=== PATIENT | male | born 1935 | race Caucasian/White ===

== ENCOUNTER 2018-09-12 15:49 | Inpatient (IN) ==
[2018-09-12] MEDS: D5 1/2 NS + KCL 10 MEQ 1,000 ML IV SCH (17:28)
[2018-09-12] MEDS: FLAGYL 500 MG/NS 500 MG/100 ML IVPB IV SCH (17:28)
[2018-09-12] MEDS: VANCOCIN PO SCH ×2 (17:28→22:15)
--- NOTE | 2018-09-12 17:54 | Diag Imaging Result Doc PS360 ---
EXAM: CHEST-2 VIEWS HISTORY: Dehydration TECHNIQUE: Chest two views COMPARISON: 08/10/2018 FINDINGS: The lungs are well expanded. The heart is not enlarged. The vessels are small. There are no infiltrates. No pleural effusions. Prominent atherosclerosis IMPRESSION: No acute abnormality. Electronically signed by Jeramy Carmona 09/12/2018 5:52 PM
[2018-09-12 18:37] LABS: BASO# 0.05 X1000 (0.0-0.2); BASO% 0.6 % (0.0-0.8); EOS# 0.15 X1000 (0.0-0.7); EOS% 1.9 % (0.0-10.0); HEMOGLOBIN 10.4 g/dL (14.0-18.0); IMM GRAN# 0.03 X1000 (0.0-0.04); IMM GRAN% 0.4 % (0.0-0.5); LYMPH% 21.1 % (20.5-51.1); MCH 33.5 PG (27-31); MCHC 33.5 g/dL (33-37); MONO# 0.68 X1000 (0.11-0.59); MONO% 8.4 % (1.7-9.3); MPV 9.3 FL (7.4-10.4); NEUT# 5.45 X1000 (1.4-6.5); NEUT% 67.6 % (42.2-75.2); PLT 118 X1000 (130-400); RDW 15.2 % (11.5-14.5); WBC 8.06 X1000 (4.8-10.8)
[2018-09-12 18:53] LABS: ALB/GLOB RATIO 0.9; ALBUMIN 3.3 g/dL (3.5-5.0); CALCIUM 8.9 mg/dL (8.8-10.2); POTASSIUM 3.5 mmol/L (3.5-5.1); TOTAL BILIRUBIN 0.45 mg/dL (0.20-1.00)
[2018-09-12 19:17] LABS: CREATININE 9.9 mg/dL (0.7-1.2)
[2018-09-13] MEDS: FLAGYL 500 MG/NS 500 MG/100 ML IVPB IV SCH ×3 (01:25→17:35)
[2018-09-13] MEDS: D5 1/2 NS + KCL 10 MEQ 1,000 ML IV SCH ×2 (05:51→18:54)
[2018-09-13] MEDS: VANCOCIN PO SCH ×4 (05:53→22:54)
--- NOTE | 2018-09-13 07:04 | EKG Report ---
Test Performed on : 09/12/2018 5:29:41 PM Test Reason : dehydration Blood Pressure : / mmHG Vent. Rate : 092 BPM Atrial Rate : 092 BPM P-R Int : 142 ms QRS Dur : 080 ms QT Int : 384 ms P-R-T Axes : 004 -20 044 degrees QTc Int : 474 ms Sinus rhythm. with premature atrial complexes. with aberrant conduction. Nonspecific ST and T wave abnormality Abnormal ECG When compared with ECG of 05-OCT-2017 12:14, aberrant conduction. is now present Confirmed by Rajesh HERRERA, Addy Morris ([id number]) on 09/13/2018 9:06:38 AM
[2018-09-13] MEDS ORDERED: MIRALAX PO PRN (08:40)
[2018-09-13] MEDS ORDERED: PROTEIN SUPPLEMENT PO SCH (09:00)
[2018-09-13] MEDS ORDERED: PATIENT'S OWN MED PO SCH (09:00)
--- NOTE | 2018-09-13 09:14 | PROGRESS NOTE ---
DATE: 09/13/2018 SUBJECTIVE: Mr. Fung is doing fairly well. This morning he is feeling better. Diarrhea is under better control. We have done the stool for C. Difficile and we are going to continue all his medications. -3 cc: Randall Appiah MD
--- NOTE | 2018-09-13 09:26 | HISTORY AND PHYSICAL ---
HISTORY OF PRESENT ILLNESS: Mr. Fung, who is an 82-year-old, white gentleman with a known case of cirrhosis of the liver as well as end-stage renal failure, was initially seen last week in Dr. Bronson's office as he sees Dr. Bronson every month as he is on peritoneal dialysis at home. He has been having diarrhea off and on. C. difficile was checked by Dr. Bronson and turned out to be positive. He was prescribed metronidazole by mouth which he could not tolerate. He had severe nausea and persistent diarrhea. Hence, he came to the office. He was found to have some dehydration and so was admitted to the hospital for further management. Mr. Fung has been diagnosed to have cirrhosis by liver biopsy. He had a peritoneal shunt put in. He also had brain surgery for aneurysm. REVIEW OF SYSTEMS: Otherwise negative. SOCIAL HISTORY: He is a nonsmoker. Does not drink. ALLERGIES: He is allergic to zolpidem. PHYSICAL EXAMINATION: GENERAL: The patient is alert. VITAL SIGNS: Reveal temperature normal, pulse 71 per minute, respiratory rate 18 per minute, blood pressure was 102/57. HEENT: Head normocephalic. Pupils PERRLA. Fundus examination normal. Neck supple. JVP normal. ENT examination unremarkable. There is no evidence of lymphadenopathy, thyroid enlargement, pedal edema, calf tenderness, cyanosis, or clubbing. He is anemic with pallor of skin and mucous membranes. There is also some dehydration. BREAST EXAMINATION: Normal. CHEST: Normal inspection. Lungs are clear on auscultation. PMI in the normal position. HEART: Heart sounds normal. No murmur, gallop, or rub noted. ABDOMEN: Nondistended. Diffusely tender. Peritoneal shunt is noted. No guarding, rigidity, free fluid, masses, or organomegaly. Bowel sounds normal. RECTAL: Examination deferred. MANAGER CHILD: Higher functions normal. Cranial nerves normal. Motor and sensory system examination unremarkable. Deep tendon reflexes normal. Plantars downgoing. Skull and spine examination normal for age. No cerebellar signs or signs of meningeal irritation. Locomotor exam and skin exam unremarkable. MEDICATIONS: His medication that he takes at home are Plavix 75 mg daily, Sensipar 30 mg daily, Rocaltrol, finasteride, potassium chloride, pantoprazole, and lipoproteins. cc: Randall Appiah MD
[2018-09-13] MEDS: PROSCAR PO SCH (11:36)
[2018-09-13] MEDS: IMDUR PO SCH (11:37)
[2018-09-13] MEDS: SENSIPAR PO SCH (11:38)
[2018-09-13] MEDS: PROTONIX PO SCH (11:38)
[2018-09-13] MEDS: PATIENT'S OWN MED PO SCH ×3 (11:39→21:43)
[2018-09-13] MEDS: KLOR-CON PO SCH (11:39)
[2018-09-13] MEDS: PLAVIX PO SCH (11:39)
[2018-09-13] MEDS: ROCALTROL PO SCH ×2 (11:40→11:41)
[2018-09-13] MEDS ORDERED: ULTRAM PO PRN (13:00)
[2018-09-13] MEDS ORDERED: AMBIEN PO SCH (21:00)
[2018-09-13] MEDS ORDERED: LUNESTA PO SCH ×2 (21:00)
--- NOTE | 2018-09-13 21:23 | NEPHROLOGY CONSULTATION ---
DATE: 09/13/2018 DATE AND TIME: Date of consult is 09/13/2018. REASON FOR ADMISSION: Severe weakness, abdominal cramping and chronic diarrhea. REASON FOR CONSULT: End-stage renal disease with assistance with medical management. HISTORY OF PRESENT ILLNESS: Mr. Fung is an 82-year-old white male who is known to our outpatient services for home peritoneal dialysis. The patient has been very weak after hospitalization recently. Continues to have chronic diarrhea. C. difficile was checked, which turned out to be positive. We had started him on Flagyl by mouth. The patient states that he could not tolerate it and the diarrhea continued. He came to Dr. Appiah's office and was found to be severely dehydrated. Subsequently was diagnosed with cirrhosis by liver biopsy in the past. Due to these facts, he was sent to the hospital for further monitoring and evaluation. PAST MEDICAL HISTORY: Positive for end-stage renal disease with peritoneal dialysis on a daily basis, chronic diarrhea. He has a history of a peritoneal shunt, brain surgery for an aneurysm, anemia of chronic disease, dehydration, recent parathyroidectomy, history of a TIA, leukocytosis, osteodystrophy of chronic disease. The patient also has known hypertension, cardiac cirrhosis. SOCIAL HISTORY: He is . He lives with his spouse. Denies tobacco, alcohol or illicit drug use. FAMILY HISTORY: Noncontributory. ALLERGIES: Listed as zolpidem. HOME MEDICATIONS: Have yet to be reviewed. REVIEW OF SYSTEMS: The patient denies any nausea, no emesis, poor appetite, chronic diarrhea. No fever or chills. Positive for weakness. No increased lower extremity swelling. No chest pain. No increased work of breathing. Review of systems x 10. VITAL SIGNS: Most recent vital signs: Temperature 98.9, blood pressure 97/44, heart rate of 73, respirations 18. He is on room air. Last recorded saturation 96%. He has had 120 mL in. He has had 0 recorded out. LABORATORY: Patient's most recent labs: Sodium is 139, potassium 3.5, chloride 95, CO2 26, BUN 38, creatinine 9.9, his glucose is 155, anion gap of 18, calcium 8.9, albumin 3.3. The patient has a white count of 8.06, hemoglobin 10.4, hematocrit 31, platelet count is 118,000. The patient had a chest x-ray upon admission indicating no acute abnormalities. Stool cultures are still currently pending. PHYSICAL EXAMINATION: General: This is an 82-year-old white male resting quietly in bed. He appears chronically ill, in no acute distress. Skin: Warm and dry. HEENT: Normocephalic, atraumatic. Conjunctiva is pale. He has NICK. Mucous membranes are dry. Neck: Supple. Trachea midline. No evidence of JVD. Cardiovascular: Regular rate and rhythm. He is without murmur or gallop. Lungs: Clear to auscultation bilaterally. Equal excursion on room air. Abdomen: Soft nontender. PD catheter remains intact. He is currently on PD dialysis as we speak. Genitourinary: Minimal void with peritoneal dialysis assist. Extremities: No edema. No clubbing or cyanosis. Neurologic: Alert and oriented x 2. ASSESSMENT AND PLAN: 1. Chronic kidney disease stage 5D. The patient continues on his peritoneal dialysis treatment per his routine exchanges. He has been on all yellow PD fluid x1 week secondary to his volume depletion. 2. Electrolytes and acid-base balance. These are acceptable. 3. Anemia. This is acceptable. 4. Chronic diarrhea with dehydration. The patient is currently receiving IV fluids. He is currently on Vancocin and Flagyl oral. I would like to thank you for allowing us to follow with this patient. Dictated by GORDON Yee for Rasta Bronson MD Face to face encounter, data reviewed, discussed with María Macias on 09/13/18. I agree with the above assessment and plan of care. cc: GORDON Yee MD Amit V. Vora, MD [facility]
[2018-09-13] MEDS: REMERON PO SCH (21:31)
[2018-09-13] MEDS: LIPITOR PO SCH (21:31)
[2018-09-14] MEDS: FLAGYL 500 MG/NS 500 MG/100 ML IVPB IV SCH ×3 (02:44→17:28)
[2018-09-14] MEDS: D5 1/2 NS + KCL 10 MEQ 1,000 ML IV SCH ×3 (05:40→19:30)
[2018-09-14] MEDS: VANCOCIN PO SCH ×3 (05:41→17:28)
[2018-09-14] MEDS: PROTONIX PO SCH (06:10)
--- NOTE | 2018-09-14 09:38 | PROGRESS NOTE ---
DATE: 09/14/2018 Mr. Fung is doing better. His C. difficile came back negative. He is on IV Flagyl as well as oral vancomycin. We will continue the current management on him. He is getting peritoneal dialysis. We will give him IV fluids also. The dehydration is much better. -2 cc: Randall Appiah MD
[2018-09-14] MEDS: SENSIPAR PO SCH (09:44)
[2018-09-14] MEDS: PLAVIX PO SCH (09:44)
[2018-09-14] MEDS: PROSCAR PO SCH (09:44)
[2018-09-14] MEDS: ROCALTROL PO SCH (09:44)
[2018-09-14] MEDS: IMDUR PO SCH (09:44)
[2018-09-14] MEDS: KLOR-CON PO SCH (09:45)
[2018-09-14] MEDS: PATIENT'S OWN MED PO SCH ×2 (09:45)
--- NOTE | 2018-09-14 14:51 | NEPHROLOGY PROGRESS NOTE ---
DATE: 09/14/2018 DATE AND TIME OF EXAM: 09/14/2018 at 0855 hours. SUBJECTIVE: Mr. Fung is standing up in his room. He has been walking about. States he is feeling slightly better today. OBJECTIVE: His most recent vital signs: Temperature 98.3 degrees, blood pressure 95/47, heart rate 76, respirations 16. He is on room air. Last recorded saturation 99%. He has had 1440 in, 1006 out to void, not including his PD ultrafiltration. General: This is an 82-year-old white male. He is resting quietly on the side of the bed during exam. He appears in no acute distress. Skin: Warm and dry. HEENT: Normocephalic, atraumatic. Conjunctiva is pale. He has NICK. Mucous membranes are dry. Neck: Supple. Trachea midline. No JVD. Cardiovascular: Regular rate and rhythm. He is without murmur or gallop. Lungs: Clear to auscultation bilaterally. Equal excursion on room air. Abdomen: Soft, nontender. PD catheter remains dry and intact without redness or drainage. He has just been taken off his peritoneal dialysis cycler for the night. Genitourinary: Not inspected. Minimal void with dialysis assist. Extremities: Have no edema. No clubbing or cyanosis. Neurological: Alert and oriented x3. LABS: His last potassium was 3.5. His previous hemoglobin was 10.4. These will be checked in the a.m. ASSESSMENT AND PLAN: 1. Chronic kidney disease stage 5 D. The patient has peritoneal dialysis fluid remaining in his abdomen. No indications for intervention today with plans for continued dialysis treatment per the peritoneal dialysis cycler tonight. 2. Electrolytes, acid-base balance, and anemia. These have been stable. We will plan to check his labs in the morning. 3. Chronic diarrhea. Patient remains on Vancocin and Flagyl, followed by Dr. Appiah. I would like to thank you for allowing us to follow with this patient. Dictated by GORDON Yee for Rasta Bronson MD cc: GORDON Yee MD Amit V. Vora, MD
[2018-09-14] MEDS: REMERON PO SCH (21:34)
[2018-09-14] MEDS: LIPITOR PO SCH (21:36)
[2018-09-15] MEDS: VANCOCIN PO SCH ×6 (00:30→22:11)
[2018-09-15] MEDS: PATIENT'S OWN MED PO SCH ×5 (00:38→21:45)
[2018-09-15] MEDS: FLAGYL 500 MG/NS 500 MG/100 ML IVPB IV SCH ×3 (01:07→18:05)
[2018-09-15] MEDS: PROTONIX PO SCH (06:20)
[2018-09-15] MEDS: D5 1/2 NS + KCL 10 MEQ 1,000 ML IV SCH ×4 (06:20→20:49)
[2018-09-15] MEDS: ROCALTROL PO SCH (08:31)
[2018-09-15] MEDS: PLAVIX PO SCH (08:31)
[2018-09-15] MEDS: IMDUR PO SCH (08:31)
[2018-09-15] MEDS: SENSIPAR PO SCH (08:31)
[2018-09-15] MEDS: PROSCAR PO SCH (08:31)
[2018-09-15] MEDS: KLOR-CON PO SCH (08:31)
[2018-09-15 08:51] LABS: BASO# 0.03 X1000 (0.0-0.2); BASO% 0.5 % (0.0-0.8); EOS# 0.23 X1000 (0.0-0.7); EOS% 4.2 % (0.0-10.0); HEMATOCRIT 27.6 % (42.0-52.0); HEMOGLOBIN 9.3 g/dL (14.0-18.0); IMM GRAN# 0.03 X1000 (0.0-0.04); IMM GRAN% 0.5 % (0.0-0.5); LYMPH# 1.49 X1000 (1.2-3.4); LYMPH% 27.1 % (20.5-51.1); MCH 33.6 PG (27-31); MCHC 33.7 g/dL (33-37); MCV 99.6 FL (81-99); MONO% 9.1 % (1.7-9.3); MPV 9.1 FL (7.4-10.4); NEUT# 3.22 X1000 (1.4-6.5); NEUT% 58.6 % (42.2-75.2); PLT 101 X1000 (130-400); RBC 2.77 XMIL (4.7-6.1); RDW 15.3 % (11.5-14.5)
[2018-09-15 09:16] LABS: ALBUMIN 2.9 g/dL (3.5-5.0); CALCIUM 8.1 mg/dL (8.8-10.2); PHOSPHORUS 5.4 mg/dL (2.7-4.5); POTASSIUM 3.5 mmol/L (3.5-5.1)
[2018-09-15 09:29] LABS: CREATININE 8.7 mg/dL (0.7-1.2)
--- NOTE | 2018-09-15 11:20 | PROGRESS NOTE ---
DATE: 09/15/2018 Mr. Fung is doing better. Diarrhea is better. Yesterday, he had a rough time during peritoneal dialysis. According to the family, the left foot was swollen. He has some arterial insufficiency in both legs. We will try to get arterial flow study in both legs and venous flow study in the left leg. -0 cc: Randall Appiah MD
--- NOTE | 2018-09-15 15:14 | NEPHROLOGY PROGRESS NOTE ---
DATE: 09/15/2018 SUBJECTIVE: Patient resting in bed. The patient states that last night he had swelling to his feet. It is resolved by this morning. He denies shortness of breath or chest pain. OBJECTIVE: Vital Signs: Temperature 98.3 degrees, pulse 72, respiratory rate 14, blood pressure 104/46. Intake 476 mL. Output 300 mL. It is also noted on the dialysis machine intake right at 3 L and output just under a liter. General: This is an elderly gentleman resting in bed. He is awake and alert. He is in no acute distress. HEENT: Normocephalic, atraumatic. NICK. Neck: Supple without JVD. Cardiovascular: Regular rate and rhythm. Pulmonary: Clear bilaterally. Abdomen: Soft. Positive bowel sounds. No tenderness noted. PD catheter noted clean, dry, and intact. : Not inspected. Extremities: No clubbing, cyanosis. He currently has no pretibial edema. He has some trace pedal edema. Integumentary: Skin is warm and dry. LAB DATA: WBC of 5.5, hemoglobin 9.3. Sodium 134, potassium 3.5, CO2 22, creatinine 8.7, phosphorus 5.4, calcium 8.1, albumin 2.9. ASSESSMENT AND PLAN: Chronic kidney disease 5D. We will continue him on his peritoneal dialysis. The patient has been dialyzing with. CONTINUATION: Original job #[id number]. ASSESSMENT AND PLAN: 1. Patient has been dialyzing with yellow bags (1.5% dextrose). We have been attempting to keep some fluid on him secondary to his dehydration with the diarrhea. It appears that he is achieved a euvolemic state. Will change him over to green bags tonight and evaluate him tomorrow. Family states that they do use a combination of yellow and green bags depending on his fluid status. 2. Clostridium difficile, chronic diarrhea. Continues on Vancocin and Flagyl. Followed by primary. Dictated by GORDON Nascimento for Rasta Bronson MD cc: MD Randall Mccoy MD Dictated by GORDON Nascimento for Rasta Bronson MD cc: MD Randall Mccoy MD [facility]
--- NOTE | 2018-09-15 15:18 | NEPHROLOGY PROGRESS NOTE ---
DATE: 09/15/2018 CONTINUATION: Original job #[id number]. ASSESSMENT AND PLAN: 1. Patient has been dialyzing with yellow bags (1.5% dextrose). We have been attempting to keep some fluid on him secondary to his dehydration with the diarrhea. It appears that he is achieved a euvolemic state. Will change him over to green bags tonight and evaluate him tomorrow. Family states that they do use a combination of yellow and green bags depending on his fluid status. 2. Clostridium difficile, chronic diarrhea. Continues on Vancocin and Flagyl. Followed by primary. Dictated by GORDON Nascimento for Rasta Bronson MD cc: MD Randall Mccoy MD [facility]
[2018-09-15] MEDS: LIPITOR PO SCH (21:45)
[2018-09-15] MEDS: REMERON PO SCH (21:45)
[2018-09-16] MEDS: FLAGYL 500 MG/NS 500 MG/100 ML IVPB IV SCH ×2 (03:03→09:11)
[2018-09-16] MEDS: PROTONIX PO SCH ×2 (05:39→06:00)
[2018-09-16] MEDS: VANCOCIN PO SCH ×2 (05:39→11:23)
[2018-09-16 07:26] VITALS: BP 92/44
[2018-09-16 08:38] LABS: CALCIUM 8.2 mg/dL (8.8-10.2); POTASSIUM 3.4 mmol/L (3.5-5.1)
[2018-09-16 08:43] LABS: CREATININE 9.2 mg/dL (0.7-1.2)
[2018-09-16] MEDS: KLOR-CON PO SCH (09:11)
[2018-09-16] MEDS: IMDUR PO SCH (09:11)
[2018-09-16] MEDS: ROCALTROL PO SCH (09:11)
[2018-09-16] MEDS: PLAVIX PO SCH (09:11)
[2018-09-16] MEDS: SENSIPAR PO SCH (09:11)
[2018-09-16] MEDS: PROSCAR PO SCH (09:11)
[2018-09-16] MEDS: PATIENT'S OWN MED PO SCH ×2 (09:12→11:28)
--- NOTE | 2018-09-16 14:00 | PROGRESS NOTE ---
DATE: 09/16/2018 The patient's potassium is 3.4. However, he is doing the dialysis on a regular basis so he changes frequently. We will continue with the current management. He is going to be discharged today. I do not think he needs any more vancomycin capsules as he has received 4 days worth of treatment and a second stool report was negative for C. Diff. -0 cc: Randall Appiah MD
--- NOTE | 2018-09-17 15:40 | DISCHARGE SUMMARY ---
ADMISSION DATE: 09/12/2018 DISCHARGE DATE: 09/16/2018 HOSPITAL COURSE: Mr. Fung is admitted with diarrhea, dehydration. He had Clostridium difficile positive. Initial Clostridium difficile test was done in Dr. Bronson's office. He was placed on Flagyl by mouth, which he could not tolerate. X-RAY DATA: In the hospital chest x-ray did not reveal any acute abnormality. He had a vascular flow study done, and the final report is not back. EKG revealed sinus rhythm with premature atrial contractions. ST-T abnormality was nonspecific. OTHER LAB DATA: Revealed CBC was unremarkable, except for anemia. Hemoglobin was 9.3. Potassium has been changed slightly from 3.5 to 3.4. BUN was 29, creatinine 9.2. He has chronic renal failure. COURSE IN THE HOSPITAL: He was given IV fluids to help dehydration. He had peritoneal dialysis done every night. Nephrology consult was obtained. Physical exam was improving. Diarrhea had improved significantly. The second stool Clostridium difficile toxin was negative, and so we had decided to send him home today. FINAL DIAGNOSES: 1. Clostridium difficile colitis. 2. Dehydration. 3. Renal failure. 4. Hepatic liver cirrhosis. 5. Peripheral arterial disease. cc: Randall Appiah MD
--- NOTE | 2018-09-19 20:44 | VASCULAR LAB ---
PROCEDURE NAME: Arterial Bilateral Legs - 09/15/2018 REFERRING PHYSICIAN: Bijal. READING PHYSICIAN: Jerrica. STITCH WELDER: Gagan. INDICATION: Left 5th toe ulcer. FINDINGS: Pulse volume waveforms show pulsatile flow at all levels on the right side, and on the left side there is pulsatile flow except at the digital level where it is absent. Segmental pressures: Right brachial 121, high thigh 250, low thigh 250, popliteal 250, dorsalis pedis 250, posterior tibial 250, toe pressure 58, KENDY 1.9, TBI 0.45. Left brachial pressure 128, high thigh 250, low thigh 250, popliteal 250, dorsalis pedis 73, posterior tibial 250, and the toe pressure was not measured. Ultrasound was then used to evaluate the arteries of the left lower extremity. The posterior tibial artery had a peak systolic velocity of 54 or 55 cm/sec. The posterior tibial artery measured 29 cm/sec. The right posterior tibial artery measured 113 cm/sec, and the right dorsalis pedis measured 32 cm/sec. INTERPRETATION: There are probable calcified vessels throughout both lower extremities, limiting the utility of the pressure measurements and KENDY measurement. The waveforms appear to be somewhat better formed on the right side compared to the left. There is probable blunting of the left ankle level and it is absent at the digital level. There is a discrepancy and velocity of the left posterior tibial artery compared to the right. 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 Compared to the prior study on 04/22/2018, this is probably similar, if not somewhat worse. cc: MD Randall Altamirano MD
--- NOTE | 2018-09-19 21:20 | Extremity Venous Study ---
PROCEDURE NAME: Venous U/S Left Leg - 09/15/2018 STUDY: Left lower extremity venous duplex study. REQUEST PHYSICIAN: Randall Appiah MD. READING PHYSICIAN: Luiz Becerril MD. CREDIT RESOLUTION REPRESENTATIVE: Selena Farah RVT. INDICATION: Left leg swelling. FINDINGS: The deep and superficial veins of the left lower extremity were imaged throughout their course. They are compressible, patent, and without thrombus. INTERPRETATION: No DVT or SVT of the left lower extremity. cc: MD Randall Altamirano MD
== END 2018-09-16 12:19 | disposition home or self-care (01) | DRG 371 ==
LOC: DIRADM 15:49 → 3N 16:19
PROVIDERS: ADMIT Internal Medicine; ATTEND Internal Medicine
CPT/HCPCS: 71020; 71046; 80048; 80053; 80069; 85025; 87324; 93005; 93010; 93923; 93971; A9270; J3480; S0030; S0138

== ENCOUNTER 2018-10-19 22:47 | Inpatient (IN) ==
[2018-10-19 23:29] LABS: ALB/GLOB RATIO 1.1; ALBUMIN 3.6 g/dL (3.5-5.0); CALCIUM 8.7 mg/dL (8.8-10.2); POTASSIUM 3.4 mmol/L (3.5-5.1); TOTAL BILIRUBIN 0.55 mg/dL (0.20-1.00)
[2018-10-20 00:28] LABS: BASO# 0.02 X1000 (0.0-0.2); BASO% 0.4 % (0.0-0.8); EOS# 0.19 X1000 (0.0-0.7); EOS% 3.6 % (0.0-10.0); HEMATOCRIT 23.1 % (42.0-52.0); HEMOGLOBIN 7.6 g/dL (14.0-18.0); IMM GRAN# 0.02 X1000 (0.0-0.04); IMM GRAN% 0.4 % (0.0-0.5); LYMPH# 1.39 X1000 (1.2-3.4); LYMPH% 26.4 % (20.5-51.1); MCH 33.6 PG (27-31); MCHC 32.9 g/dL (33-37); MCV 102.2 FL (81-99); MONO# 0.38 X1000 (0.11-0.59); MONO% 7.2 % (1.7-9.3); MPV 8.8 FL (7.4-10.4); NEUT# 3.27 X1000 (1.4-6.5); PLT 90 X1000 (130-400); RBC 2.26 XMIL (4.7-6.1); RDW 14.7 % (11.5-14.5); WBC 5.27 X1000 (4.8-10.8)
[2018-10-20] MEDS ORDERED: TYLENOL PO ONE (00:55)
[2018-10-20] MEDS ORDERED: BENADRYL PO ONE (00:55)
[2018-10-20] MEDS ORDERED: LASIX IV ONE (00:55)
--- NOTE | 2018-10-20 00:58 | PROVIDER DOCUMENTATION ---
This chart was entered by Krysten Allred Scribe, acting as scribe for James Harmon MD. HPI-Chest Pain - General Chief Complaint: Chest Pain Stated Complaint: Chest Pain Time Seen by Provider: 10/19/18 22:49 Source: patient Allergies/Adverse Reactions: Patient Allergies Allergy/AdvReac Type Severity Reaction Status Date / Time zolpidem [From Ambien] AdvReac Unknown Verified 09/03/17 08:01 Home Medications: Home Medication List Medication Instructions Recorded Confirmed Last Taken Type Cinacalcet [Sensipar] 30 mg PO DAILY 05/16/12 10/19/18 10/05/17 History Finasteride [Proscar] 5 mg PO QAM 05/25/12 10/19/18 10/05/17 History Calcitriol 0.25 mcg PO DIRECTED 01/10/14 10/19/18 10/05/17 History Eszopiclone 6 mg PO QHS 04/13/15 10/19/18 09/13/18 20:00 History Polyethylene Glycol 3350 [Miralax] 17 gm PO PRN PRN 12/23/15 10/19/18 05/08/17 History Atorvastatin Calcium 40 mg PO DAILY 08/30/17 10/19/18 10/05/17 History Clopidogrel Bisulfate [Plavix] 75 g PO DAILY 08/30/17 10/19/18 10/05/17 History Isosorbide Mononitrate 60 mg PO DAILY 08/30/17 10/19/18 10/05/17 History Protein Supplement [Liquacel] 1 packet PO DAILY 08/30/17 10/19/18 Unknown History Pantoprazole Sodium [Protonix] 40 mg PO DAILY #0 09/04/17 10/19/18 10/05/17 08:00 Rx Mirtazapine 45 mg PO QHS 10/05/17 10/19/18 10/04/17 History Potassium Chloride 10 meq PO DAILY #30 tablet.er 10/08/17 10/19/18 Unknown Rx Amino AC/Protein Hydr/Whey Pro 1 oz PO DAILY 08/11/18 10/19/18 Unknown History [Liquacel Liquid Protein Packet] Folic Acid/Vit B Complex and C 1 ea PO DAILY 08/11/18 10/19/18 Unknown History [Dialyvite Tablet] Tramadol [Ultram] 50 mg PO Q8HR tab 08/12/18 10/19/18 Unknown Rx Patient's Own Med 1 ea PO DAILY misc 09/16/18 10/19/18 Unknown Rx Patient's Own Med 1 ea PO DAILY misc 09/16/18 10/19/18 Unknown Rx Patient's Own Med 2 ea PO QHS misc 09/16/18 10/19/18 Unknown Rx - History of Present Illness-CP Nature of Presenting Problem: 82yom presents to ED by EMS cc chest paint that felt like an electric shock and SOB that started about 7:30pm and lasted 10 mins. Pt reports he was doing his peritoneal dialysis at home when the episode happened. Pt also reports previous episode and told he has 3 blockages but no stents.Pt also reports some nausea with episode but denies V/D. Pt is non-toxic in appearance. Location: reports: other (left side) Chest Pain Radiation: reports: no radiation Quality of Pain: reports: other (electric shock) Severity in ED: mild Onset/Duration: 1-3 hours ago Timing: improving, gone now Context/Activities at Onset: reports: other (peritneal dialysis at home) Modifying Factors: improves with: nothing Associated Symptoms: reports: nausea. denies: vomiting Nitro Today/Relief: no nitro taken today Aspirin Treatment Today: no aspirin today Similar Symptoms Previously?: Yes Recently Seen Here or By Another Healthcare Provider: Yes Review of Systems - Adult - REVIEW OF SYSTEMS - ADULT Constitutional: reports: see HPI. denies: chills, fever, fatique Eyes: reports: no symptoms reported Ears, Nose, Mouth & Throat: reports: no symptoms reported Cardiovascular: reports: see HPI, chest pain. denies: irregular heart rate, syncope Respiratory: reports: see HPI, shortness of breath. denies: cough, wheezing Gastrointestinal: reports: see HPI, nausea. denies: diarrhea, vomiting Genitourinary: reports: no symptoms reported Musculoskeletal: reports: no symptoms reported Integumentary: reports: no symptoms reported Neurological: reports: no symptoms reported Psychiatric: reports: no symptoms reported Endocrine: reports: no symptoms reported Hematologic/Lymphatic: reports: no symptoms reported Allergic/Immunologic: reports: no symptoms reported All Other Systems: Reviewed and Negative Past History - Adult - PAST MEDICAL HISTORY-ADULT Review of Records: reports: Nursing Assessment Review, Medications Reviewed, Social history reviewed & non-contributory. Major Childhood Illnesses: reports: denies history Cardiovascular: reports: HTN Respiratory: reports: denies history Gastrointestinal: reports: denies history Obstetrical/Gynecological: reports: denies history Genitourinary: reports: dialysis, kidney disease Musculoskeletal: reports: denies history Neurological: reports: CVA Endocrine/Immune: reports: thyroid disorder Other Conditions: reports: denies history - PRIOR SURGERIES/PROCEDURES Surgical/Procedure History: reports: other - PRIOR HOSPITALIZATIONS Prior Hospitalizations: reports: for similar symptoms - IMMUNIZATION STATUS Childhood Immunizations: See Nurse Assessment Flu Vaccine: See Nurse Assessment - FAMILY HISTORY Family History: reviewed, not pertinent - SOCIAL HISTORY Smoking: denies Physical Exam-General - PHYSICAL EXAM-ADULT Initial Vital Signs Reviewed: Yes - CONSTITUTIONAL General Appearance: appears well, alert, no apparent distress. negative: anxious, combative - EYES Eyes: PERRL/EOMI, pink conjunctivae. negative: meningismus, photophobia - HEAD, EARS, NOSE, MOUTH & THROAT HENMT: moist mucous membranes, normal ENT inspection. negative: angioedema, hearing deficit - NECK Neck: non-tender, full range of motion, supple, normal inspection. negative: Brudzinski's sign, carotid bruit, C-spine tenderness - RESPIRATORY Respiratory: chest non-tender, lungs clear, normal breath sounds, no pleuratic chest pain, no respiratory distress, no accessory muscle use. negative: crackles, rales, rhonchi, stridor, wheezing - CARDIOVASCULAR Cardiovascular: normal peripheral pulses, regular rate, rhythm, no edema, no gallop, no JVD, no murmur. negative: bradycardia, tachycardia - GASTROINTESTINAL (ABDOMEN) Abdominal Exam: normal bowel sounds, non tender, soft. negative: rigid, rebound, tenderness - LYMPHATIC Lymphatic: no adenopathy. negative: enlargement, striations - MUSCULOSKELETAL Back Exam: normal inspection, no CVA tenderness, no vertebral tenderness. negative: swelling Extremity: normal range of motion, non-tender, normal gait, normal inspection, no pedal edema, no calf tenderness, normal capillary refill. negative: deformity, erythema - SKIN Integumentary: normal color, normal turgor, warm/dry. negative: diaphoresis, erythema, jaundice - NEUROLOGIC Neurologic: compound filler II-XII nml as tested, grossly normal, no motor/sensory deficits. negative: facial droop, focal weakness - PSYCHIATRIC Psych/Mental Status: normal mood/affect, normal thought content, normal thought process, oriented x 3. negative: disoriented x 3, anxious, disheveled, depressed affect Progress - PLAN OF CARE/RESULTS Progress/Plan/Lab Results: Vital Signs - 8 hr 10/19/18 22:49 10/19/18 22:53 10/19/18 22:55 Temperature 98.4 F Pulse Rate 86 88 Respiratory Rate 18 Blood Pressure 116/59 116/59 O2 Sat by Pulse Oximetry 98 98 97 10/19/18 23:01 10/19/18 23:10 10/19/18 23:20 Temperature Pulse Rate 86 80 78 Respiratory Rate 21 18 21 Blood Pressure O2 Sat by Pulse Oximetry 97 99 97 10/19/18 23:24 10/19/18 23:28 10/19/18 23:31 Temperature Pulse Rate 80 80 83 Respiratory Rate 18 18 20 Blood Pressure 88/51 98/47 O2 Sat by Pulse Oximetry 97 95 96 10/19/18 23:32 10/19/18 23:40 10/19/18 23:50 Temperature Pulse Rate 83 83 81 Respiratory Rate 18 21 17 Blood Pressure 95/49 O2 Sat by Pulse Oximetry 96 96 95 10/20/18 00:01 10/20/18 00:02 10/20/18 00:10 Temperature Pulse Rate 80 81 Respiratory Rate 17 17 20 Blood Pressure 108/57 O2 Sat by Pulse Oximetry 96 97 96 10/20/18 00:20 Temperature Pulse Rate 81 Respiratory Rate 18 Blood Pressure O2 Sat by Pulse Oximetry 96 Laboratory Results - last 24 hr 10/19/18 10/19/18 10/19/18 00:11 23:02 23:02 WBC 5.27 Cancelled RBC 2.26 L Cancelled Hgb 7.6 L Cancelled Hct 23.1 L Cancelled MCV 102.2 H Cancelled MCH 33.6 H Cancelled MCHC 32.9 L Cancelled RDW Std Deviation 14.7 H Cancelled Plt Count 90 L Cancelled MPV 8.8 Cancelled Immature Gran % (Auto) 0.4 Cancelled Neut % (Auto) 62.0 Cancelled Lymph % (Auto) 26.4 Cancelled Lamar % (Auto) 7.2 Cancelled Eos % (Auto) 3.6 Cancelled Baso % (Auto) 0.4 Cancelled Immature Gran # (Auto) 0.02 Cancelled Neut # (Auto) 3.27 Cancelled Lymph # (Auto) 1.39 Cancelled Lamar # (Auto) 0.38 Cancelled Eos # (Auto) 0.19 Cancelled Baso # (Auto) 0.02 Cancelled Corrected WBC (Man) Cancelled Sodium 142 Potassium 3.4 L Chloride 99 Carbon Dioxide 28 Anion Gap 15 BUN 43 H Creatinine 9.0 H Estimated GFR/1.73 m2 6 BUN/Creatinine Ratio 5 Glucose 183 H Calculated Osmolality 299 Calcium 8.7 L Total Bilirubin 0.55 AST 28 ALT 43 Alkaline Phosphatase 122 Troponin T Hqw-[id number]-Rnjiircnbmz Pept Total Protein 7.0 Albumin 3.6 Globulin 3.4 Albumin/Globulin Ratio 1.1 10/19/18 10/19/18 23:02 23:02 WBC RBC Hgb Hct MCV MCH MCHC RDW Std Deviation Plt Count MPV Immature Gran % (Auto) Neut % (Auto) Lymph % (Auto) Lamar % (Auto) Eos % (Auto) Baso % (Auto) Immature Gran # (Auto) Neut # (Auto) Lymph # (Auto) Lamar # (Auto) Eos # (Auto) Baso # (Auto) Corrected WBC (Man) Sodium Potassium Chloride Carbon Dioxide Anion Gap BUN Creatinine Estimated GFR/1.73 m2 BUN/Creatinine Ratio Glucose Calculated Osmolality Calcium Total Bilirubin AST ALT Alkaline Phosphatase Troponin T 0.029 Fne-J-Exxpeszixvk Pept 5326 H Total Protein Albumin Globulin Albumin/Globulin Ratio Orders Category Date Time Status Nursing- Obtain EKG ONCE Care 10/19/18 22:57 Active Transfuse .Give-Transfuse Care 10/20/18 00:55 Ordered cxr [CHEST-1 VIEW] [RAD] Stat Exams 10/19/18 22:57 Taken CBC WITH ELECTRONIC DIFF [HEME] Stat Lab 10/19/18 00:11 Completed COMPREHENSIVE METABOLIC PANEL [CHEM] Stat Lab 10/19/18 23:02 Completed LRPC (RED CELLS) [BBK] Stat Lab 10/20/18 00:56 Uncollected PRO B-NATRIURETIC PEPTIDE Stat Lab 10/19/18 23:02 Completed TROPONIN T Stat Lab 10/19/18 23:02 Completed TYPE & SCREEN [BBK] Stat Lab 10/20/18 00:55 Uncollected Acetaminophen [Tylenol] Med 10/20/18 00:55 Once 650 mg PO PREMED ONE Diphenhydramine [Benadryl] Med 10/20/18 00:55 Once 50 mg PO PREMED ONE Furosemide [Lasix] Med 10/20/18 00:55 Once 80 mg IV NOW ONE EKG [EKG] Stat Ther 10/19/18 22:57 Ordered Result Diagrams: 10/19/18 23:02 10/19/18 23:02 - EKG 1 Time of EKG reading by physician:: 23:00 EKG Read and Signed by:: James Harmon EKG Interpretation (*Must complete 3 of following elements*): Abnormal (prolonged QT) Rate: 88 Rhythm: sinus with PAC's [place]: normal ST Wave: normal - CONSULTS/PCP/HOSPITALIST Notification #1 *Consult/PCP/Hospitalist*: Dr. Fitzpatrick Time Discussed: 00:56 Consult Disposition: Will see in ED (agreed to see pt in ED for possible admit) Departure - Departure Date of Disposition Decision: 10/20/18 Time of Disposition Decision: 00:57 DIAGNOSIS: Chest pain Qualifiers: Chest pain type: other chest pain Qualified Code(s): R07.89 - Other chest pain; R07.8 - Other chest pain Anemia Qualifiers: Anemia type: unspecified type Qualified Code(s): D64.9 - Anemia, unspecified Disposition: ADMITTED INPATIENT 09 Certified Medical Emergency: Emergent Condition: Stable Referrals and Follow-Ups: Randall Appiah MD [Primary Care Provider] - - Critical Care Note This patient required my direct & personal management of CC.: No Attestation - Physician/ FAINA Attestation Patient care was provided by Advanced Practice Provider:: No The physician spent face to face time with patient:: Yes Advanced Practice Provider documentation review:: Supervising physician onsite and consulted in the evaluation and care of this patient. The physician did have a face to face encounter with the patient. This chart was documented by the indicated scribe, (Krysten Allred Scribe) and accurately reflects the services I performed and decisions made by me, James Harmon MD, as attested by the provider's signature.
[2018-10-20 01:30] LABS: RETIC% 2.19 % (0.8-2.1); RETIC-HE 36.1 PG (28.2-36.6)
[2018-10-20 02:11] LABS: TSH 1.55 uIUmL (0.27-4.20)
[2018-10-20 02:22] LABS: INR 1.01; PROTIME 14.1 Seconds (11.0-16.0)
[2018-10-20 02:23] LABS: PTT 33.9 Seconds (22.3-41.8)
[2018-10-20] MEDS ORDERED: NS 500 ML IV SCH (03:15)
[2018-10-20] MEDS ORDERED: NS 500 ML ONE (03:29)
--- NOTE | 2018-10-20 03:29 | HISTORY AND PHYSICAL ---
ADDENDUM The patient came in for chest pain while undergoing peritoneal dialysis, which lasted 50 minutes. No specific or additional anginal equivalent. His blood pressure was noted to be 70/40, per his . The patient did not pass out. He reports no leg swelling, PND, orthopnea, or any CHF related symptoms. No hematochezia or blood loss from any site. He was recently discharged from the hospital over a week ago for C diff colitis and, at that time, denied any melena or hematochezia. He says he has been feeling weak and having some mild dyspnea on exertion for the last week or so. He denies any bone pain. LABORATORY WORK: Notable for a H and H of 7 and 23, which is down from 10 and 32 close to 3 weeks ago. His BUN is 43, creatinine is 9.0, which is pretty much around his baseline. He does report that his dialysate this evening was bloody, according to the patient, but he has never had blood in his peritoneal dialysate. Otherwise, his proBNP is 5300. Chest film shows poor inspiratory effort and poor penetration of radiographic film. His troponin 0.029. His baseline proBNP has always been 5000. PHYSICAL EXAMINATION: VITAL SIGNS: Currently his blood pressure 108/58, heart rate 81, respirations 18, temperature 98.4, O2 saturation of 96% on room air. GENERAL: He is chronically ill, pallid, elderly man. NECK: Has no JVD. No bruit. No thyromegaly. CHEST: Clear. CARDIOVASCULAR: First and second heart sounds are heard. No gallops, murmurs, rubs. ABDOMEN: Shows he has a peritoneal dialysis catheter which is periumbilical. Site is clean. Abdomen exam is essentially benign for any tenderness. Bowel sounds are hypoactive. No mass or organomegaly. RECTAL: Deferred. EXTREMITIES: Patient has significant diminished pulses in all extremities distally, more so in the lower extremity. No clubbing or peripheral cyanosis. NEUROLOGICAL: Normal. ASSESSMENT: 1. This patient does have anemia, probably multifactorial. Could range anything from some degree of bone marrow failure from liver chronic liver and kidney disease, and possible mild hemorrhagic anemia from dialysis, and recent diarrhea. 2. Chest pain, which could be probably from some degree of demand ischemia. 3. Liver cirrhosis. 4. 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 5. Peripheral arterial disease. PLAN: For this patient, we will transfuse 1 unit of packed red blood cells while, at the same time, patient will simultaneously take off at least a pint or 2 to avoid pulmonary edema following transfusion. We will consult Dr. Bronson for further orders regarding patient's peritoneal dialysis. Anemia workup will also be ordered and, hopefully, this should improve patient's symptoms. Serial cardiac enzymes will be followed over the next 6 to 12 hours. cc: Andrade Fitzpatrick MD
--- NOTE | 2018-10-20 05:24 | Diag Imaging Result Doc PS360 ---
EXAM: CHEST-1 VIEW HISTORY: chest pain TECHNIQUE: Chest single view COMPARISON: 09/12/2018 FINDINGS: Poor inspiratory effort. The heart is not enlarged. The vessels are not distended. There are no infiltrates. No effusion identified. IMPRESSION: Negative exam. Electronically signed by Jeramy Carmona 10/20/2018 5:22 AM
[2018-10-20] MEDS ORDERED: TYLENOL PO PRN (06:58)
[2018-10-20] MEDS ORDERED: ZOFRAN IV PRN (06:58)
[2018-10-20] MEDS ORDERED: ZOFRAN ODT PO PRN (07:00)
[2018-10-20 07:03] LABS: BASO# 0.02 X1000 (0.0-0.2); BASO% 0.4 % (0.0-0.8); EOS# 0.18 X1000 (0.0-0.7); EOS% 3.6 % (0.0-10.0); HEMATOCRIT 26.3 % (42.0-52.0); HEMOGLOBIN 8.7 g/dL (14.0-18.0); IMM GRAN# 0.02 X1000 (0.0-0.04); IMM GRAN% 0.4 % (0.0-0.5); LYMPH# 1.34 X1000 (1.2-3.4); LYMPH% 26.5 % (20.5-51.1); MCH 33.1 PG (27-31); MCHC 33.1 g/dL (33-37); MONO# 0.44 X1000 (0.11-0.59); MONO% 8.7 % (1.7-9.3); MPV 9.2 FL (7.4-10.4); NEUT# 3.05 X1000 (1.4-6.5); NEUT% 60.4 % (42.2-75.2); PLT 83 X1000 (130-400); RBC 2.63 XMIL (4.7-6.1); RDW 14.9 % (11.5-14.5); WBC 5.05 X1000 (4.8-10.8)
--- NOTE | 2018-10-20 07:13 | EKG Report ---
Test Performed on : 10/20/2018 07:00:16 AM Test Reason : Chest Pain Blood Pressure : / mmHG Vent. Rate : 066 BPM Atrial Rate : 066 BPM P-R Int : 170 ms QRS Dur : 086 ms QT Int : 456 ms P-R-T Axes : 056 -19 040 degrees QTc Int : 478 ms Normal sinus rhythm. Normal ECG When compared with ECG of 12-SEP-2018 17:29, aberrant conduction. is no longer present Confirmed by Santiago HERRERA, Josue Lewis ([id number]) on 10/20/2018 1:42:04 PM
--- NOTE | 2018-10-20 07:17 | EKG Report ---
Test Performed on : 10/19/2018 10:55:17 PM Test Reason : CHEST PAIN Blood Pressure : / mmHG Vent. Rate : 088 BPM Atrial Rate : 088 BPM P-R Int : 152 ms QRS Dur : 078 ms QT Int : 412 ms P-R-T Axes : 009 -16 039 degrees QTc Int : 498 ms Sinus rhythm. with premature atrial complexes. Prolonged QT Abnormal ECG No previous ECGs available Unconfirmed Result
[2018-10-20 07:26] LABS: ALBUMIN 3.3 g/dL (3.5-5.0); CALCIUM 8.7 mg/dL (8.8-10.2); MAGNESIUM 1.9 mg/dL (1.5-2.7); POTASSIUM 3.7 mmol/L (3.5-5.1)
[2018-10-20 07:27] LABS: PHOSPHORUS 6.8 mg/dL (2.7-4.5)
[2018-10-20 07:28] LABS: CREATININE 9.1 mg/dL (0.7-1.2)
[2018-10-20] MEDS: KLOR-CON PO SCH (08:17)
[2018-10-20] MEDS: SENSIPAR PO SCH (08:17)
[2018-10-20] MEDS: PROSCAR PO SCH (08:17)
[2018-10-20] MEDS: LIPITOR PO SCH (08:17)
[2018-10-20] MEDS: PROTONIX PO SCH (08:18)
[2018-10-20] MEDS: NEPHRO-VITE PO SCH (08:18)
--- NOTE | 2018-10-20 10:16 | PROGRESS NOTE ---
DATE: 10/20/2018 PROGRESS NOTE: Mr. Fung was admitted last night for severe chest pain. The pain was retrosternal. He thought the pain was even more severe other than when he had a heart attack. He has cirrhosis of liver. He has chronic end-stage renal failure. Gets peritoneal dialysis every night. Mr. Fung was very anemic. Hemoglobin was around 7.6. He was transfuse 1 unit. It came back to 8.7. They are going to repeat the CBC in the morning. Repeat EKG and then decide about further management. cc: Randall Appiah MD
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
--- NOTE | 2018-10-20 15:49 | NEPHROLOGY CONSULTATION ---
DATE: 10/20/2018 REASON FOR CONSULTATION: ESRD on PD, evaluate and treat. HISTORY OF PRESENT ILLNESS: Mr. Fung is an 82-year-old, white male, who is well known to us. He has end-stage kidney disease secondary to hypertension. History of secondary hyperparathyroidism, end-stage coronary artery disease, peripheral vascular disease, etc. He has chronic rest pain in his feet and a small ulcer that has been stable. He was in his usual health until last evening when he developed his typical anginal chest pain while he was sitting on the couch idle. Symptoms did not resolve spontaneously so he came to the emergency room. His initial evaluation found blood pressure 116/59, heart rate 86. His initial EKG did not disclose any overtly ischemic findings. His hemoglobin was less than 8. As such, he was admitted to the hospital and transfused with 1 unit of packed red blood cells. Chest pain is resolved at this time. No other new symptoms. No chills, fevers, sweats, night sweats. No abdominal pain. No change in his PD fluid character. PAST MEDICAL HISTORY: As above. HOME MEDICATIONS: Include cinacalcet, finasteride, calcitriol, polyethylene glycol, clopidogrel, isosorbide. Atorvastatin, pantoprazole, mirtazapine, potassium, folate, Liquacel, tramadol. ALLERGIES: Zolpidem. SOCIAL HISTORY: He is and lives with his . She is very attentive to his needs and helps him with his dialysis. FAMILY HISTORY: Otherwise noncontributory. REVIEW OF SYSTEMS: Otherwise noncontributory. PHYSICAL EXAMINATION: Vital Signs: Blood pressure 116/59, heart rate 69, respirations 12, afebrile. Generally: No acute distress. Skin: Warm and dry. HEENT: Conjunctivae are pink. Pupils are equal. Oropharynx is clear. Tongue is moist. Dentition normal. Neck: Supple. Trachea is midline. Neck veins are not distended. Heart: PMI nondisplaced. Regular rate and rhythm without murmurs, rubs, or gallops. Lungs: Have equal excursion, equal breath sounds. No crackles or wheezes. No accessory muscle use or retractions. Abdomen: Soft, distended, nontender. Bowel sounds are present. No organomegaly or masses. Exit site is not examined. Extremities: Have no edema, clubbing, or cyanosis. Foot ulcer is not examined. IMPRESSION: 1. Chest pain. He has inoperable end-stage coronary disease. He has intermittent chest pain. Certainly this was likely to be exacerbated by demand ischemia in the context of significant anemia. Symptoms are better with transfusion. 2. Anemia. Last hemoglobin in our system was 10.8. He has required multiple transfusions for GI bleeding. He has been evaluated. He has received 1 unit of packed red blood cells at this point. 3. Electrolytes/acid base/blood pressure all in target. 4. Chronic kidney disease 5D. We will perform a manual 2 L, 2.5% exchanges this morning because he did not perform his cycle therapy last night. Resume routine cycle therapy this evening. cc: MD Randall Mccoy MD
[2018-10-20] MEDS ORDERED: REMERON PO SCH (21:00)
--- NOTE | 2018-10-21 07:06 | EKG Report ---
Test Performed on : 10/21/2018 06:53:46 AM Test Reason : CP Blood Pressure : / mmHG Vent. Rate : 077 BPM Atrial Rate : 077 BPM P-R Int : 164 ms QRS Dur : 084 ms QT Int : 436 ms P-R-T Axes : 014 000 054 degrees QTc Int : 493 ms Normal sinus rhythm. Prolonged QT Abnormal ECG When compared with ECG of 20-OCT-2018 07:00, No significant change was found Confirmed by Santiago HERRERA, Josue Lewis ([id number]) on 10/24/2018 5:05:08 PM
[2018-10-21 07:25] LABS: HEMOGLOBIN A1C 4.5 % (4.8-6.0)
[2018-10-21 07:30] LABS: BASO# 0.03 X1000 (0.0-0.2); BASO% 0.7 % (0.0-0.8); EOS# 0.19 X1000 (0.0-0.7); EOS% 4.1 % (0.0-10.0); HEMATOCRIT 25.8 % (42.0-52.0); HEMOGLOBIN 8.5 g/dL (14.0-18.0); LYMPH# 1.29 X1000 (1.2-3.4); MCH 33.5 PG (27-31); MCHC 32.9 g/dL (33-37); MCV 101.6 FL (81-99); MONO# 0.35 X1000 (0.11-0.59); MONO% 7.6 % (1.7-9.3); MPV 9.2 FL (7.4-10.4); NEUT# 2.75 X1000 (1.4-6.5); NEUT% 59.6 % (42.2-75.2); PLT 80 X1000 (130-400); RBC 2.54 XMIL (4.7-6.1); RDW 15.2 % (11.5-14.5); WBC 4.61 X1000 (4.8-10.8)
[2018-10-21 07:47] LABS: CALCIUM 8.8 mg/dL (8.8-10.2); POTASSIUM 3.2 mmol/L (3.5-5.1)
[2018-10-21 07:58] LABS: CREATININE 8.6 mg/dL (0.7-1.2)
[2018-10-21] MEDS: NEPHRO-VITE PO SCH (09:03)
[2018-10-21] MEDS: SENSIPAR PO SCH (09:03)
[2018-10-21] MEDS: LIPITOR PO SCH (09:03)
[2018-10-21] MEDS: KLOR-CON PO SCH (09:04)
[2018-10-21] MEDS: PROTONIX PO SCH (09:04)
[2018-10-21] MEDS: PROSCAR PO SCH (09:04)
[2018-10-21] MEDS ORDERED: NS 500 ML ONE (10:48)
[2018-10-21 14:32] VITALS: BP 116/76
--- NOTE | 2018-10-21 16:05 | PROGRESS NOTE ---
DATE: 10/21/2018 SUBJECTIVE: Mr. Fung is doing better. He is receiving blood transfusion now with order by Dr. Bronson. After the blood transfusion, I think we will discharge him today. He is feeling much better. His lungs sound clear. We will discharge. cc: Randall Appiah MD
--- NOTE | 2018-10-21 17:13 | NEPHROLOGY PROGRESS NOTE ---
DATE: 10/21/2018 SUBJECTIVE: He feels well. Slept well last night. No shortness of breath, nausea or vomiting. OBJECTIVE: Vital Signs: Blood pressure 112/49, heart rate 98, respirations 75, afebrile. General: No acute distress. Skin: Warm and dry. Neck: Neck veins are not distended. Heart: Regular. Lungs: Equal. Abdomen: Soft, nontender. Bowel sounds present. Extremities: No edema, clubbing or cyanosis. IMPRESSION: Anemia. I will give a second unit of packed red blood cells today in order to get his hemoglobin closer to 10. He has end-stage ischemic heart disease and ongoing, but episodic gastrointestinal bleeding. Okay for discharge thereafter. Otherwise, we will continue his routine dialysis prescription. He is euvolemic. cc: MD Randall Mccoy MD
--- NOTE | 2018-10-22 06:47 | DISCHARGE SUMMARY ---
ADMISSION DATE: 10/20/2018 DISCHARGE DATE: 10/21/2018 HISTORY: Mr. Fung was admitted with chest pain. He also had severe anemia. His initial hemoglobin when he came in was 7.6 and hematocrit 23.1. After 2 units, it came up to 8.5 and hematocrit 25.8. He is going to be transfused 1 more unit today. His electrolytes were normal except for mild hypokalemia. BUN was 40, creatinine 8.6. Troponin was negative. On chest x-ray, heart was not enlarged, and there are no infiltrates or effusions noted in the lungs. EKG revealed normal sinus rhythm and prolonged QT. Abnormal EKG was found. COURSE IN HOSPITAL: He was kept on telemetry. The cardiac workup was negative. He had severe anemia. He was seen by Dr. Bronson. He had peritoneal dialysis at night. He received 2 units yesterday, and he is going to get 1 unit of packed RBCs today. He will be discharged after that, and I will repeat the blood count in the office in about 3 to 4 days. FINAL DIAGNOSES: 1. Anemia secondary to renal failure. 2. He has liver cirrhosis. 3. Chest pain, etiology undetermined. 4. He has coronary artery disease. It could be related to that. However, the enzymes are negative. DISPOSITION: He will be discharged today. cc: Randall Appiah MD
== END 2018-10-21 15:48 | disposition home or self-care (01) | DRG 682 ==
LOC: SUPCPDRO → ED 22:47 → SUATTDRO 10-20 02:47 → 3N 10-20 02:47
PROVIDERS: ADMIT Internal Medicine; ATTEND Internal Medicine
CPT/HCPCS: 36430; 71010; 71045; 80048; 80053; 80069; 82270; 82550; 82607; 82728; 82746; 83036; 83735; 83880; 84443; 84484; 85025; 85045; 85610; 85730; 86850; 86900; 86901; 86920; 93005; 93010; 94761; 94799; 99285; A9270; J1940; J7040; P9016; S0138

== ENCOUNTER 2018-11-23 10:10 | Inpatient (IN) ==
[2018-11-23] MEDS ORDERED: ULTRAM PO PRN ×2 (11:28→18:00)
[2018-11-23] MEDS ORDERED: MORPHINE IV PRN (11:28)
[2018-11-23] MEDS ORDERED: ZOFRAN IV PRN (11:28)
--- NOTE | 2018-11-23 11:41 | Diag Imaging Result Doc PS360 ---
EXAM: CHEST-2 VIEWS 11/23/2018 HISTORY: Dehydration, hypotension, abd pain TECHNIQUE: PA and lateral chest COMMENT: There is no evidence of acute cardiac or pulmonary disease. The inspiration is better than on the previous study of 10/19/2018. IMPRESSION: No acute disease. Electronically signed by Brooks Nieto 11/23/2018 11:38 AM
[2018-11-23] MEDS ORDERED: POTASSIUM CHLORIDE 10 MEQ in D5 NS 1,000 ML IV SCH (12:00)
--- NOTE | 2018-11-23 12:57 | EKG Report ---
Test Performed on : 11/23/2018 12:28:14 PM Test Reason : dehydration, hypotension, abd pain Blood Pressure : / mmHG Vent. Rate : 084 BPM Atrial Rate : 084 BPM P-R Int : 158 ms QRS Dur : 084 ms QT Int : 394 ms P-R-T Axes : 020 -13 062 degrees QTc Int : 465 ms Sinus rhythm. with premature supraventricular complexes. Otherwise normal ECG When compared with ECG of 21-OCT-2018 06:53, premature supraventricular complexes. are now present Confirmed by Oswald Hodge MD ([id number]) on 11/26/2018 8:47:03 PM
[2018-11-23 13:03] LABS: BASO# 0.04 X1000 (0.0-0.2); BASO% 0.5 % (0.0-0.8); EOS# 0.13 X1000 (0.0-0.7); EOS% 1.7 % (0.0-10.0); HEMATOCRIT 28.9 % (42.0-52.0); HEMOGLOBIN 9.7 g/dL (14.0-18.0); IMM GRAN# 0.04 X1000 (0.0-0.04); IMM GRAN% 0.5 % (0.0-0.5); LYMPH# 1.35 X1000 (1.2-3.4); LYMPH% 18.2 % (20.5-51.1); MCH 33.8 PG (27-31); MCHC 33.6 g/dL (33-37); MCV 100.7 FL (81-99); MONO# 0.57 X1000 (0.11-0.59); MONO% 7.7 % (1.7-9.3); MPV 9.9 FL (7.4-10.4); NEUT% 71.4 % (42.2-75.2); PLT 106 X1000 (130-400); RBC 2.87 XMIL (4.7-6.1); RDW 16.9 % (11.5-14.5); WBC 7.43 X1000 (4.8-10.8)
[2018-11-23 13:40] LABS: ALBUMIN 3.3 g/dL (3.5-5.0); CALCIUM 9.6 mg/dL (8.8-10.2); CREATININE 10.3 mg/dL (0.7-1.2); POTASSIUM 3.6 mmol/L (3.5-5.1); TOTAL BILIRUBIN 0.76 mg/dL (0.20-1.00); TOTAL PROTEIN 6.7 g/dL (6.3-8.3)
[2018-11-23] MEDS: POTASSIUM CHLORIDE 10 MEQ in D5 NS 1,000 ML IV SCH (14:38)
[2018-11-23] MEDS: MIRALAX PO SCH (15:59)
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
[2018-11-23 16:35] LABS: BODY FLUID SOURCE PERI DIAL FLUID; MONOS 85 %; POLYS 15 %; WBC BF 39 /cumm
[2018-11-23] MEDS ORDERED: MIRALAX PO PRN (17:29)
[2018-11-23] MEDS ORDERED: TYLENOL PO PRN (17:29)
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
[2018-11-23] MEDS ORDERED: PATIENT'S OWN MED PO SCH (21:00)
[2018-11-23] MEDS ORDERED: ULTRAM PO SCH (21:00)
[2018-11-23] MEDS ORDERED: LUNESTA PO SCH (21:00)
[2018-11-23] MEDS: AMBIEN PO SCH (21:32)
[2018-11-23] MEDS: REMERON PO SCH (21:38)
[2018-11-24] MEDS: POTASSIUM CHLORIDE 10 MEQ in D5 NS 1,000 ML IV SCH ×2 (03:04→19:00)
[2018-11-24] MEDS: PROTONIX PO SCH (06:30)
[2018-11-24 07:19] LABS: BASO# 0.02 X1000 (0.0-0.2); BASO% 0.3 % (0.0-0.8); EOS# 0.16 X1000 (0.0-0.7); EOS% 2.5 % (0.0-10.0); HEMATOCRIT 28.6 % (42.0-52.0); HEMOGLOBIN 9.4 g/dL (14.0-18.0); IMM GRAN# 0.02 X1000 (0.0-0.04); IMM GRAN% 0.3 % (0.0-0.5); LYMPH# 1.98 X1000 (1.2-3.4); LYMPH% 31.5 % (20.5-51.1); MCH 32.9 PG (27-31); MCHC 32.9 g/dL (33-37); MONO# 0.46 X1000 (0.11-0.59); MONO% 7.3 % (1.7-9.3); MPV 9.1 FL (7.4-10.4); NEUT# 3.65 X1000 (1.4-6.5); NEUT% 58.1 % (42.2-75.2); PLT 102 X1000 (130-400); RBC 2.86 XMIL (4.7-6.1); RDW 16.7 % (11.5-14.5); WBC 6.29 X1000 (4.8-10.8)
[2018-11-24 07:49] LABS: CALCIUM 9.4 mg/dL (8.8-10.2); MAGNESIUM 1.8 mg/dL (1.5-2.7); PHOSPHORUS 7.5 mg/dL (2.7-4.5); POTASSIUM 3.5 mmol/L (3.5-5.1)
[2018-11-24 07:52] LABS: CREATININE 9.9 mg/dL (0.7-1.2)
[2018-11-24] MEDS ORDERED: WHEY PROTEIN PO SCH (09:00)
[2018-11-24] MEDS ORDERED: AMINO ACIDS PO SCH (09:00)
[2018-11-24] MEDS ORDERED: [UNRECOGNIZED DRUG - OTHER] PO SCH (09:00)
[2018-11-24] MEDS ORDERED: TUMS PO SCH (09:00)
[2018-11-24] MEDS ORDERED: PROTEIN SUPPLEMENT PO SCH (09:00)
[2018-11-24] MEDS ORDERED: PATIENT'S OWN MED PO SCH ×2 (09:00)
--- NOTE | 2018-11-24 09:35 | NEPHROLOGY PROGRESS NOTE ---
DATE: 11/24/2018 TIME SEEN: 0635. SUBJECTIVE: Mr. Fung is resting quietly in bed. Head of the bed is elevated. His is at his bedside. He has no complaints this a.m. of chest pain or increased work of breathing. Continues with discomfort to his lower pelvis area. LABORATORY DATA: Sodium is 141, potassium 3.5, chloride 99, CO2 of 26, BUN 38, creatinine 9.9, glucose 146, his anion gap is 16, calcium 9.4. Phosphorus 7.5, magnesium 1.8. White count 6.29, hemoglobin 9.4, hematocrit 28.6, with a platelet count of 102,000. The patient had peritoneal dialysis fluid indicating no crystals, minimal mono and polynuclear WBCs. PD fluid for anaerobes was none reported. OBJECTIVE: Most Recent Vital Signs: Last temperature 98.6 degrees, blood pressure 102/52, heart rate 71, respirations are 14. He is on room air. Last recorded saturation is 98%. He has had 0 recorded in or out. General: This is an 83-year-old white male. He is currently resting quietly in bed. He appears chronically ill, though no acute distress. Skin: Warm and dry. HEENT: Normocephalic, atraumatic. Conjunctiva is pale. He has NICK. Mucous membranes are dry. Neck: Supple. Trachea midline. No evidence of JVD. Cardiovascular: Regular rate and rhythm without murmur or gallop. Lungs: Clear to auscultation bilaterally. Equal excursion. He is on room air. Abdomen: Soft, nontender. PD catheter remains intact to the right upper quadrant. No redness or drainage noted to the exit site. Continues with peritoneal dialysis per cycler at this time. Genitourinary: Not inspected. Minimal void with dialysis assist. Extremities: No edema. No clubbing or cyanosis. Healing foot ulcer. Wound with ecchymosis to the right elbow. Skin is intact. Neurologic: Alert and oriented x3. ASSESSMENT AND PLAN: 1. Chronic kidney disease stage 5D. The patient will continue with his peritoneal dialysis this evening per the cycler. 2. Electrolytes and acid-base balance. These are acceptable. 3. Anemia. This is low, but stable. 4. Abdominal pain. We will check a CT of the pelvis and abdomen without contrast this morning, and continue to re-evaluate. I would like to thank you for allowing us to follow with this patient. Dictated by GORDON Yee for Rasta Bronson MD Face to face encounter, data reviewed, discussed with María Macias on 11/24/18. I agree with the above assessment and plan of care. cc: GORDON Yee MD Amit V. Vora, MD [facility]
[2018-11-24] MEDS: LIPITOR PO SCH (09:39)
[2018-11-24] MEDS: IMDUR PO SCH (09:39)
[2018-11-24] MEDS: TRENTAL PO SCH (09:39)
[2018-11-24] MEDS: PLAVIX PO SCH (09:39)
[2018-11-24] MEDS: PROSCAR PO SCH (09:39)
[2018-11-24] MEDS: ROCALTROL PO SCH (09:39)
[2018-11-24] MEDS: NEPHRO-VITE PO SCH (09:39)
--- NOTE | 2018-11-24 09:43 | PROGRESS NOTE ---
DATE: 11/24/2018 Mr. Fung has some ascites. He has renal failure and hepatic failure. He is doing peritoneal dialysis. He is feeling better. The blood culture results are not back. We started him on Zosyn. Overall condition is otherwise unchanged. -9 cc: Randall Appiah MD
[2018-11-24] MEDS: MIRALAX PO SCH (09:52)
[2018-11-24] MEDS: ZOSYN 3.375 GM in NS 50 ML IV SCH ×3 (09:52→21:06)
[2018-11-24] MEDS: TUMS PO SCH ×2 (09:52→17:53)
--- NOTE | 2018-11-24 10:51 | Diag Imaging Result Doc PS360 ---
EXAM: CT ABDOMEN/PELVIS W/O CONTRAST INDICATION: pain to lower pelvis area TECHNIQUE: This exam was performed using automated exposure control, adjustment of mA or kV according to patient size, and/or use of iterative reconstruction technique. COMPARISON: 08/10/2018 FINDINGS: There is mild subsegmental atelectasis at the lung bases. There is a moderate to large volume of peritoneal fluid. Much of this is probably due to peritoneal dialysis. A dialysis catheter is coiled in the pelvis. However, the liver contour is very mildly nodular suggesting possible cirrhosis. The liver is unremarkable, otherwise. There is stable mild splenomegaly. The gallbladder, pancreas, and adrenal glands are unremarkable. Both kidneys are markedly atrophic there are several nonobstructing intrarenal stones bilaterally that are also seen on the previous study. There are also a few stable small renal cysts. There is no hydronephrosis The urinary bladder is nondistended. There is a stable left inguinal hernia containing fluid. There is fairly extensive descending and sigmoid colonic diverticulosis but no definite wall thickening to suggest diverticulitis. There is no obstructive bowel pattern. There is a small duodenal diverticulum. The remainder of the GI tract is essentially unremarkable. There is extensive aortoiliac atherosclerotic calcification. There is spondylosis but no evidence of acute osseous abnormality. IMPRESSION: 1.Moderate to large volume of fluid in the abdominal cavity similar to the previous study that is at least in part due to peritoneal dialysis. 2.Suggestion of cirrhosis and splenomegaly that is stable. 3.Other incidental/nonacute findings detailed above. Electronically signed by Quin[facility] 11/24/2018 10:49 AM
[2018-11-24] MEDS: KLOR-CON PO SCH (11:26)
[2018-11-24] MEDS: SENSIPAR PO SCH (11:26)
[2018-11-24] MEDS: REMERON PO SCH (21:05)
[2018-11-24] MEDS: AMBIEN PO SCH (21:05)
[2018-11-25] MEDS: ZOSYN 3.375 GM in NS 50 ML IV SCH ×2 (01:39→09:56)
[2018-11-25] MEDS: POTASSIUM CHLORIDE 10 MEQ in D5 NS 1,000 ML IV SCH ×2 (02:13→04:23)
[2018-11-25] MEDS: PROTONIX PO SCH (06:12)
[2018-11-25 07:53] LABS: CALCIUM 8.6 mg/dL (8.8-10.2); PHOSPHORUS 6.1 mg/dL (2.7-4.5); POTASSIUM 3.1 mmol/L (3.5-5.1)
[2018-11-25 07:58] LABS: CREATININE 8.2 mg/dL (0.7-1.2)
[2018-11-25] MEDS: TUMS PO SCH (09:58)
[2018-11-25] MEDS: PROSCAR PO SCH (09:59)
[2018-11-25] MEDS: TRENTAL PO SCH (09:59)
[2018-11-25] MEDS: IMDUR PO SCH (09:59)
[2018-11-25] MEDS: KLOR-CON PO SCH (09:59)
[2018-11-25] MEDS: ROCALTROL PO SCH (09:59)
[2018-11-25] MEDS: PLAVIX PO SCH (09:59)
[2018-11-25] MEDS: SENSIPAR PO SCH (09:59)
[2018-11-25] MEDS: LIPITOR PO SCH (09:59)
[2018-11-25] MEDS: NEPHRO-VITE PO SCH (09:59)
[2018-11-25] MEDS: MIRALAX PO SCH (10:00)
[2018-11-25 11:37] VITALS: BP 91/43
--- NOTE | 2018-11-25 11:49 | NEPHROLOGY PROGRESS NOTE ---
DATE: 11/25/2018 SUBJECTIVE: He states he is feeling better. Abdominal pain is resolved. No chest pain, palpitation, nausea, vomiting, etc. OBJECTIVE: Vital Signs: Blood pressure 94/46, heart rate 77, respiration 18, afebrile. General: No acute distress. Skin: Warm and dry. Neck: Veins are not distended. Heart: Regular. Abdomen: Soft, nontender. Normal bowel sounds. Extremities: No edema, clubbing or cyanosis. IMPRESSION: 1. Chronic kidney disease 5D. He will continue his routine peritoneal dialysis prescription at home. 2. Abdominal pain. Resolved. No acute findings on his CT abdomen. 3. Anemia. Below target, but stable. cc: MD Randall Mccoy MD
--- NOTE | 2018-11-25 12:27 | PROGRESS NOTE ---
DATE: 11/25/2018 SUBJECTIVE: Mr. Fung feels better. He does not have an abdominal pain. He feels stronger. His dehydration is cleared up. Vital signs reveal blood pressure improving to 91/43. His hemoglobin is 9.4 and the creatinine is 8.2. Electrolytes are normal, except for low potassium which is 3.1. We will discharge him. He was seen by Dr. Bronson earlier today, who agreed with the discharge. cc: Randall Appiah MD
--- NOTE | 2018-11-25 20:06 | DISCHARGE SUMMARY ---
ADMISSION DATE: 11/23/2018 DISCHARGE DATE: 11/25/2018 DIAGNOSIS OF ADMISSION: Mr. Fung was admitted with hypotension, dehydration, lower abdominal pain. Laboratory data in hospital, microbiology revealed no growth in the peritoneal fluid cultures as well as blood cultures. CBC showed his electrolytes were normal except for slight mild hypokalemia today. He has peritoneal dialysis every day and it changes. Creatinine changed from 10.3 to 8.2. Blood sugar was 164. ALT/AST were normal. CBC showed white count was 7.43, normal. Hemoglobin 9.7. The other body fluid sources revealed WBC only 39. Fluid crystals were not recordable. He was given IV fluids. All his medications were continued. He continued to improve and we decided to discharge him. He had a nephrology consult with Dr. Bronson. We will discharge him today. FINAL DIAGNOSIS: 1. Dehydration. 2. Hypotension. 3. Lower abdominal pain, etiology undetermined. 4. Mild ascites. cc: Randall Appiah MD
== END 2018-11-25 14:06 | disposition home or self-care (01) | DRG 640 ==
LOC: DIRADM 10:10 → 3N 10:39 → 1N 12:03
PROVIDERS: ADMIT Internal Medicine; ATTEND Internal Medicine
CPT/HCPCS: 71020; 71046; 74176; 80048; 80053; 80069; 83735; 84100; 85025; 87040; 87070; 87075; 87205; 89051; 93005; 93010; A9270; J2543; J3480; J7042; S0138

== ENCOUNTER 2018-12-19 10:24 | Inpatient (IN) ==
--- NOTE | 2018-12-19 12:53 | EKG Report ---
Test Performed on : 12/19/2018 12:47:55 PM Test Reason : hypertension Blood Pressure : / mmHG Vent. Rate : 090 BPM Atrial Rate : 090 BPM P-R Int : 156 ms QRS Dur : 078 ms QT Int : 386 ms P-R-T Axes : 021 -15 086 degrees QTc Int : 472 ms Sinus rhythm. with premature atrial complexes. with aberrant conduction. ST & T wave abnormality, consider anterior ischemia Prolonged QT Abnormal ECG Confirmed by Ludy Forde MD ([id number]) on 12/20/2018 12:06:54 PM
[2018-12-19 13:13] LABS: BASO# 0.03 X1000 (0.0-0.2); BASO% 0.4 % (0.0-0.8); EOS# 0.17 X1000 (0.0-0.7); EOS% 2.1 % (0.0-10.0); HEMATOCRIT 29.9 % (42.0-52.0); HEMOGLOBIN 10.2 g/dL (14.0-18.0); IMM GRAN# 0.04 X1000 (0.0-0.04); IMM GRAN% 0.5 % (0.0-0.5); LYMPH# 1.33 X1000 (1.2-3.4); LYMPH% 16.3 % (20.5-51.1); MCH 34.8 PG (27-31); MCHC 34.1 g/dL (33-37); MONO# 0.77 X1000 (0.11-0.59); MONO% 9.4 % (1.7-9.3); MPV 9.2 FL (7.4-10.4); NEUT# 5.81 X1000 (1.4-6.5); NEUT% 71.3 % (42.2-75.2); PLT 104 X1000 (130-400); RBC 2.93 XMIL (4.7-6.1); RDW 17.4 % (11.5-14.5); WBC 8.15 X1000 (4.8-10.8)
[2018-12-19] MEDS: D5 NS 1,000 ML IV SCH ×2 (13:20→23:38)
[2018-12-19 13:29] LABS: ALB/GLOB RATIO 1.1; ALBUMIN 3.8 g/dL (3.5-5.0); CALCIUM 9.2 mg/dL (8.8-10.2); POTASSIUM 2.8 mmol/L (3.5-5.1); TOTAL BILIRUBIN 0.72 mg/dL (0.20-1.00); TOTAL PROTEIN 7.3 g/dL (6.3-8.3)
[2018-12-19 13:30] LABS: CREATININE 9.4 mg/dL (0.7-1.2)
[2018-12-19] MEDS ORDERED: ZOFRAN ODT PO PRN (15:07)
--- NOTE | 2018-12-19 16:43 | Diag Imaging Result Doc PS360 ---
EXAM: SHOULDER 1 VIEW LEFT 12/19/2018 HISTORY: hypertension TECHNIQUE: Left shoulder one view COMMENT: There is no evidence of fracture or dislocation. There are extensive vascular calcifications. IMPRESSION: No evidence of acute bony abnormality. Electronically signed by Brooks Nieto 12/19/2018 4:40 PM
--- NOTE | 2018-12-19 16:46 | Diag Imaging Result Doc PS360 ---
EXAM: CHEST-2 VIEWS HISTORY: hypertension TECHNIQUE: Chest two views COMPARISON: 12/16/2018 FINDINGS: The lungs are well expanded. The heart is not enlarged. The vessels are not distended. There are no infiltrates. No pleural effusions. Prominent atherosclerosis. Scarring in the left costophrenic angle. IMPRESSION: No acute abnormality. Electronically signed by Jeramy Carmona 12/19/2018 4:44 PM
[2018-12-19] MEDS ORDERED: POTASSIUM CHLORIDE 40 MEQ in NS 500 ML IV ONE (16:55)
--- NOTE | 2018-12-19 17:32 | NEPHROLOGY PROGRESS NOTE ---
DATE: 12/19/2018 TIME SEEN: 1500. SUBJECTIVE: Mr. Fung is resting quietly in bed. Minimal complaints. States that he still feels weak. Complains of left toe discomfort. OBJECTIVE: Vital Signs: Still currently pending. General: He is resting quietly in bed. Abdomen: He does have PD fluid remaining to his abdominal cavity. PD catheter remains dry and intact. ASSESSMENT AND PLAN: 1. Chronic kidney disease stage 5D. The patient is to continue to have his peritoneal dialysis treatment per cycler this evening per Dr. Bronson's prescription. 2. Hypotension. Patient continues with IV fluids of D5 normal at 100 mL an hour. 3. Hypokalemia. We will order a rider bag of 40 mEq x1 and re-evaluate labs in the a.m. I would like to thank you for allowing us to follow with this patient. Dictated by GORDON Yee for Rasta Bronson MD cc: GORDON Yee MD Amit V. Vora, MD MTD[facility]
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
[2018-12-19] MEDS ORDERED: MAG HYDROX PO SCH (21:00)
[2018-12-19] MEDS ORDERED: CA CARB PO SCH (21:00)
[2018-12-19] MEDS ORDERED: FAMOTIDINE PO SCH (21:00)
[2018-12-19] MEDS ORDERED: LUNESTA PO SCH (21:00)
[2018-12-19] MEDS: ULTRACET 37.5MG/325MG PO PRN (21:22)
[2018-12-19] MEDS: PEPCID PO SCH (21:23)
[2018-12-19] MEDS: REMERON PO SCH (21:23)
[2018-12-19] MEDS: TUMS EXTRA STRENGTH PO SCH (21:23)
[2018-12-20] MEDS: PROTONIX PO SCH (06:24)
[2018-12-20] MEDS: SENSIPAR PO SCH (08:07)
[2018-12-20] MEDS: PEPCID PO SCH ×2 (08:07→20:51)
[2018-12-20] MEDS: PROSCAR PO SCH (08:07)
[2018-12-20] MEDS: TUMS EXTRA STRENGTH PO SCH ×2 (08:07→20:51)
[2018-12-20] MEDS: TRENTAL PO SCH (08:07)
[2018-12-20] MEDS: PLAVIX PO SCH (08:08)
[2018-12-20 08:09] LABS: ALBUMIN 3.3 g/dL (3.5-5.0); PHOSPHORUS 4.8 mg/dL (2.7-4.5)
[2018-12-20] MEDS: PATIENT'S OWN MED PO SCH ×2 (08:09)
[2018-12-20 08:18] LABS: CREATININE 8.1 mg/dL (0.7-1.2)
[2018-12-20] MEDS ORDERED: POTASSIUM CHLORIDE 60 MEQ in NS 500 ML IV ONE (09:06)
--- NOTE | 2018-12-20 09:30 | NEPHROLOGY PROGRESS NOTE ---
DATE: 12/20/2018 TIME SEEN: 0700. SUBJECTIVE: Mr. Fung is resting quietly in bed, states that he is feeling much better than his admission. is at his bedside. OBJECTIVE: Vital Signs: Temperature is 99.5 degrees, blood pressure 104/52, heart rate 68, respirations 16. He is on room air. Last recorded saturation 99%. He has had 2616 in. He has had 0 recorded out. LABS: Sodium is 140, potassium 3, chloride 100, CO2 28, BUN 27, creatinine 8.1, glucose is 130. His anion gap is 12. His calcium is 9. His phosphorus is 4.8. His albumin is 3.3. Previous hemoglobin of 10.2. PHYSICAL EXAMINATION: General: This is an 83-year-old white male. He appears chronically ill. No acute distress. Skin: Warm and dry. HEENT: Normocephalic, atraumatic. Conjunctivae are pale, pink. He has NICK. Mucous membranes are dry. Neck: Supple. Trachea midline. No evidence of JVD. Cardiovascular: He is regular rate and rhythm. No appreciable murmur. Lungs: Clear to auscultation bilaterally. Equal excursion on room air. Abdomen: Soft, nontender, positive bowel sounds. PD catheter remains intact to the right upper quadrant. Dressing is dry without drainage. Genitourinary: Not inspected. Minimal void with dialysis assist. Extremities: Have no edema, no clubbing or cyanosis. Wound remains intact to the left small toe, not inspected. Neurological: Alert and oriented x3. ASSESSMENT AND PLAN: 1. Chronic kidney disease stage 5D. The patient is currently on his dialysis cycler at this time. He has completed his treatment. Nurse is to disconnect shortly. No complaints. Tolerated this well. 2. Electrolytes and acid-base balance. The patient's potassium is low at 3 today after receiving 40 mEq KCl IV x1 last night. We will order more today and reevaluate labs in the a.m. 3. Acid-base balance. This is acceptable. 4. Anemia. This is close to target. 5. Weakness with hypotension. The patient's blood pressure is improved. He continues on IV fluids of normal saline at 100. Related to poor intake. We will involve Dr. Guardado. rg 6. Wound to left foot. Wound Care has been consulted. I would like to thank you for allowing us to follow with this patient. Dictated by GORDON Yee for Rasta Bronson MD Face to face encounter, data reviewed, discussed with María Macias on 12/20/18. I agree with the above assessment and plan of care. cc: GORDON Yee MD Amit V. Vora, MD [facility]
--- NOTE | 2018-12-20 09:30 | PROGRESS NOTE ---
DATE: 12/20/2018 SUBJECTIVE: Mr. Fung is feeling better this morning. His electrolytes have improved. Potassium came up from 2.8 to 3. A CBC shows hemoglobin 10.2, hematocrit is 29.9. Dehydration is better. His lungs sound clear. X-ray of the shoulder does not show any definite evidence of injury. His chest x-ray does not show any acute abnormality. Heart is not enlarged. Overall condition is stable. cc: Randall Appiah MD
--- NOTE | 2018-12-20 09:38 | HISTORY AND PHYSICAL ---
HISTORY OF PRESENT ILLNESS: Mr. Fung, who is an 83-year-old white gentleman, was admitted with hypotension and dehydration. He has a known case of chronic kidney disease, as well as chronic liver disease with history of cirrhosis of the liver. Over the weekend, he was having a lot of pain. He fell and injured his shoulder, and his appetite was poor. He had dehydration. He became hypotensive. Blood pressure in the office was around 86/40. Hence, we decided to admit him to the hospital. Other details of personal, past, and family history, he does do peritoneal dialysis every night under the direction of Dr. Bronson, and has been doing fairly well. He had surgery for peritoneal catheter, as well as craniotomy in the past. He has coronary artery disease. MEDICATIONS: Include Lunesta, Remeron, Lipitor, Rocaltrol, calcium carbonate, cinacalcet, clopidogrel, Pepcid, finasteride, Protonix, tramadol, polyethylene glycol Trental, and potassium supplement. SOCIAL HISTORY: He does not smoke, does not drink. ALLERGIES: He is allergic to zolpidem. REVIEW OF SYSTEMS: He has severe generalized weakness, pain in the left shoulder. Review of systems is otherwise noncontributory. PHYSICAL EXAMINATION: Vital Signs: When he came in, his blood pressure improved to 94/43, temperature was normal, pulse 70 per minute, respiratory rate 16 per minute. HEENT: Head normocephalic. Pupils PERRLA. Fundus examination not done. Neck: Supple. JVP normal. ENT: Unremarkable. There is no evidence of lymphadenopathy, thyroid enlargement, edema, calf tenderness, cyanosis, or clubbing. There is presence of anemia with pallor of skin and mucous membranes. Skin: Reveals presence of dehydration. Breasts: Normal chest. Normal inspection. Lungs: Clear on auscultation. PMI in the normal position. Heart: Sounds normal. No murmur, gallop, or rub noted. Abdomen: Nondistended. Hernial orifices normal. No guarding, rigidity, free fluid, masses, or organomegaly. Bowel sounds normal. Rectal: Deferred. He has a peritoneal catheter and minimal ascites on account of that. MANIPULATIVE THERAPY SPECIALIST: Higher functions normal. Cranial nerves normal. Motor and sensory system examination unremarkable. Deep tendon reflexes normal. Plantars downgoing. Skull and spine examination normal for age. No cerebellar signs or signs of meningeal irritation. Skin: Unremarkable. CLINICAL IMPRESSION: The patient has dehydration, hypotension, history of chronic kidney disease, as well as liver cirrhosis. We will start intravenous fluids and watch him closely. His potassium was 2.8 at the time of admission. cc: Randall Appiah MD MTDD
[2018-12-20] MEDS: ULTRAM PO PRN (12:34)
[2018-12-20] MEDS: D5 NS 1,000 ML IV SCH ×3 (17:18→18:42)
[2018-12-20] MEDS: REMERON PO SCH (20:50)
[2018-12-20] MEDS: LUNESTA PO SCH (20:51)
[2018-12-20] MEDS: LIPITOR PO SCH (20:51)
[2018-12-20] MEDS: ULTRACET 37.5MG/325MG PO PRN (21:10)
[2018-12-21] MEDS: D5 NS 1,000 ML IV SCH ×2 (03:29→04:46)
[2018-12-21] MEDS: PROTONIX PO SCH (06:22)
[2018-12-21 07:49] LABS: ALBUMIN 2.6 g/dL (3.5-5.0); CALCIUM 8.8 mg/dL (8.8-10.2); PHOSPHORUS 4.7 mg/dL (2.7-4.5); POTASSIUM 3.2 mmol/L (3.5-5.1)
[2018-12-21 07:51] LABS: CREATININE 7.8 mg/dL (0.7-1.2)
--- NOTE | 2018-12-21 09:00 | NEPHROLOGY PROGRESS NOTE ---
DATE: 12/21/2018 TIME SEEN: 0720. SUBJECTIVE: Mr. Fung is resting on the side of the bed. He is tolerating his upright position. He has no complaints. LABORATORY DATA: Sodium 139, potassium 3.2, chloride 103, CO2 of 25, BUN 26, creatinine 7.8, glucose 161. His anion gap is 11, his calcium is 8.8, phosphorus 4.7, albumin 2.6. Previous hemoglobin 10.2. The patient did have an ammonia level yesterday afternoon of 44. OBJECTIVE: Vital Signs: Temperature 98 degrees, blood pressure 101/47, heart rate 67, respirations are 12. He is on room air. Last recorded saturation is 98%. He has had 560 in, 0 out. General: This is an 83-year-old, elderly gentleman, who is currently resting quietly in bed. He appears chronically ill, in no acute distress. Skin: Warm and dry. HEENT: Normocephalic, atraumatic. Conjunctiva is pale pink. He has NICK. Mucous membranes are moist. Neck: Supple. Trachea midline. No evidence of JVD in the upright position. Cardiovascular: Regular rate and rhythm. No appreciable gallop. Lungs: Clear to auscultation bilaterally. Equal excursion on room air. Abdomen: Soft, nontender. Positive bowel sounds. The patient has just been taken off the cycler, with residual PD fluid remaining. Tolerated this procedure during the night well. PD catheter remains dry and intact to his upper right quadrant. No tenderness. Dressing that is dry and intact is noted. Genitourinary: Not inspected. Minimal void with dialysis assist. Extremities: No edema. No clubbing or cyanosis. He does have a wound to his left small toe, not inspected. Neurological: Alert and oriented x3. ASSESSMENT AND PLAN: 1. Chronic kidney disease stage 5D. The patient has had his peritoneal dialysis treatment per the cycler yesterday evening. He tolerated the procedure well. He is currently being taken off this morning. We will plan for dialysis per the cycler again this evening as tolerated. 2. Electrolytes and acid-base balance. The patient continues with hypokalemia, potassium of 3.2. We will add 20 mEq of potassium chloride to be given daily. 3. Acid-base balance. This is acceptable. 4. Anemia. This is close to target. 5. Weakness with hypotension. He continues on intravenous fluids of normal saline at 100 mL an hour. This is related to his poor intake. Dr. Guardado has been consulted. 6. Wound to left foot. Wound Care has been consulted and following. I would like to thank you for allowing us to follow with this patient. Dictated by GORDON Yee for Rasta Bronson MD Face to face encounter, data reviewed, discussed with María Macias on 12/21/18. I agree with the above assessment and plan of care. cc: GORDON Yee MD Amit V. Vora, MD [facility]
[2018-12-21] MEDS: PLAVIX PO SCH (10:27)
[2018-12-21] MEDS: PROSCAR PO SCH (10:27)
[2018-12-21] MEDS: SENSIPAR PO SCH (10:27)
[2018-12-21] MEDS: PEPCID PO SCH ×2 (10:27→20:30)
[2018-12-21] MEDS: TRENTAL PO SCH (10:27)
[2018-12-21] MEDS: ROCALTROL PO SCH (10:27)
[2018-12-21] MEDS: TUMS EXTRA STRENGTH PO SCH ×2 (10:27→20:30)
[2018-12-21] MEDS: KLOR-CON PO SCH (10:31)
--- NOTE | 2018-12-21 11:47 | PROGRESS NOTE ---
DATE: 12/21/2018 Mr. Fung says he gets some spells when he is very nervous and is short of breath. We are trying to find out what happens and if it happens during daytime I have asked the nurse to call me. In the meantime, we are working on his lab data. His potassium has come up from 3 to 3.2. Of course, BUN and creatinine are abnormal. His ammonia level was 44. I told the family that the patient has liver failure, however, they do not need to worry too much about it. We will continue with current management and then decide about discharge plans. His lungs sound very clear at the present time. Vital signs are stable. Chest x-ray did not show any acute abnormality. cc: Randall Appiah MD
[2018-12-21] MEDS: PATIENT'S OWN MED PO SCH ×2 (12:43→12:44)
--- NOTE | 2018-12-21 15:02 | GASTROENTEROLOGY CONSULTATION ---
DATE: 12/21/2018 REASON FOR CONSULTATION: Poor appetite. HISTORY OF PRESENT ILLNESS: This is an 83-year-old, male, known to our practice. He was last seen in the office in July. He has been followed for chronic liver disease/cirrhosis of the liver. He had previously seen Dr. Newsome prior to seeing Dr. Guardado. At the time of his office visit in July, the patient was doing fairly well. He had reported weakness that comes and goes. Otherwise there were no significant complaints and he was maintaining his weight. This admission, he was admitted for low blood pressure and recent fall. The patient reports that he has had frequent hospitalizations for dehydration. He states over the last 6 months, his appetite has decreased. He really denies nausea but states he has an aversion to certain foods. There are foods that he used to love that now he is unable to eat. His is at the bedside and states there are times when he tries to eat but he will have gagging. He denies dysphagia or odynophagia. He may go several days without eating or drinking. He states it is more of a situation of not being hungry and not tolerating certain foods. He states he feels full quickly. He does have end-stage renal disease and receives peritoneal dialysis nightly at home. He follows with Dr. Bronson. Patient states he has been on peritoneal dialysis for approximately 7 years. PAST MEDICAL HISTORY: Coronary artery disease with a history of myocardial infarction, end-stage renal disease on nightly peritoneal dialysis, peripheral vascular disease, history of parathyroidectomy, history of transient ischemic attack, history of cirrhosis of the liver. PAST SURGICAL HISTORY: Peritoneal dialysis catheter placement. Brain surgery for aneurysm repair. Parathyroidectomy. ALLERGIES: Zolpidem causing unknown reaction. HOME MEDICATIONS: 1. Tylenol 650 mg every 6 hours as needed. 2. LiquaCel protein packet daily. 3. Atorvastatin 40 mg daily. 4. Calcitriol 0.25 mcg every other day. 5. Sensipar 30 mg daily. 6. Plavix 75 mg daily. 7. Eszopiclone 6 mg every night. 8. Tums chewable 2 twice daily. 9. Proscar 5 mg daily. 10. Folic acid and vitamin C daily. 11. Mirtazapine 45 mg every night. 12. Zofran 4 mg every 6 hours as needed. 13. Protonix 40 mg daily. 14. Trental 400 mg daily. 15. MiraLAX 17 g as needed. 16. Ultram 50 mg every 8 hours as needed. SOCIAL HISTORY: He is . Denies tobacco or alcohol use. Uses smokeless tobacco. FAMILY HISTORY: Positive for arthritis and pacemaker placement in his father. REVIEW OF SYSTEMS: Per history of present illness. PHYSICAL EXAMINATION: Vital Signs: Temperature 98.5 degrees, pulse 86, respirations 18, blood pressure 125/53. General: Patient is awake, alert, in no acute distress. HEENT: Normocephalic, atraumatic. Pupils equal, round, reactive to light. Sclerae nonicteric. Chest: Lung sounds clear bilaterally. Abdomen: Soft, nontender. Positive bowel sounds. He has a peritoneal catheter for his peritoneal dialysis in place. Extremities: No lower extremity edema noted. Neurological: Cranial nerves 2-12 grossly intact. Patient is awake and oriented to person, place, and time. LABORATORY RESULTS: Hematology: WBC 8.15, hemoglobin 10.2, hematocrit 29.9, MCV 102.0, platelet 104,000. Chemistry: Sodium 139, potassium 3.2, chloride 103, CO2 25, BUN 26, creatinine 7.8, glucose 161, calcium 8.8. Phosphorus 4.7. Total bilirubin 0.72, AST 21, ALT 16, alkaline phosphatase 93, ammonia 44. Albumin 2.6. ASSESSMENT: 1. Recent fall. 2. Generalized weakness and fatigue. 3. End-stage renal disease, on peritoneal dialysis. 4. History of cirrhosis of the liver. 5. Frequent hypotension, dehydration. 6. Decreased appetite, early satiety. PLAN: 1. Appetite loss, multifactorial. 2. Hypotension/dehydration 3. ESRD 4. Liver cirrhosis Would continue PPI. Patient has already had a dietary consultation. We have discussed altering his meals, instead of eating 3 large meals, try eating frequent small meals. Meal replacements with Nephro shakes as needed. Recommend adequate fluid intake and following fluid recommendations from Nephrology. We will see how his response is to his dietary consultation and adjustment in his eating. Use Zofran as needed for nausea. Further plans will be made according to his progress. I have discussed this case with Dr. Guardado. Thank you for this consultation. Dictated by GORDON Wong for Doug Guardado MD cc: GORDON Jacobs MD Amit V. Vora, MD MTDD
[2018-12-21] MEDS: ULTRACET 37.5MG/325MG PO PRN (18:29)
[2018-12-21] MEDS: LIPITOR PO SCH (20:30)
[2018-12-21] MEDS: REMERON PO SCH (20:30)
[2018-12-21] MEDS: LUNESTA PO SCH (20:30)
[2018-12-21] MEDS: ULTRAM PO PRN (21:38)
[2018-12-22] MEDS: PROTONIX PO SCH (05:59)
[2018-12-22 07:42] LABS: ALBUMIN 2.7 g/dL (3.5-5.0); CALCIUM 9.2 mg/dL (8.8-10.2); CREATININE 7.9 mg/dL (0.7-1.2); PHOSPHORUS 4.8 mg/dL (2.7-4.5)
[2018-12-22] MEDS: TUMS EXTRA STRENGTH PO SCH ×2 (08:27→20:25)
[2018-12-22] MEDS: TRENTAL PO SCH (08:27)
[2018-12-22] MEDS: SENSIPAR PO SCH (08:27)
[2018-12-22] MEDS: PLAVIX PO SCH (08:27)
[2018-12-22] MEDS: PEPCID PO SCH ×2 (08:27→20:25)
[2018-12-22] MEDS: KLOR-CON PO SCH (08:27)
[2018-12-22] MEDS: PATIENT'S OWN MED PO SCH ×2 (08:27→08:30)
[2018-12-22] MEDS: PROSCAR PO SCH (08:28)
--- NOTE | 2018-12-22 08:58 | PROGRESS NOTE ---
DATE: 12/22/2018 SUBJECTIVE: Mr. Fung in room 106A. He had a bad day yesterday. He was nauseous, did not eat anything, did not feel good. He was seen by Dr. Guardado and his associates. Small frequent meals are advised. This morning, he is in the same shape. He has not taken any food. OBJECTIVE: His vital signs are stable. Electrolytes are normal with a normal potassium of 4. PLAN: I am going to put him on Reglan before meals. cc: Randall Appiah MD
[2018-12-22] MEDS: REGLAN PO SCH ×3 (10:40→20:25)
[2018-12-22] MEDS: ULTRACET 37.5MG/325MG PO PRN (15:52)
--- NOTE | 2018-12-22 18:07 | NEPHROLOGY PROGRESS NOTE ---
DATE: 12/22/2018 TIME SEEN: 0710. SUBJECTIVE: Mr. Fung is sitting up on the side of the bed. His is at his bedside. He states that he is feeling just slightly better. He does state that he had an episode yesterday evening to where he started trembling, felt nauseated, got hot, could not eat. This lasted approximately 1 hour. Feels better this a.m. OBJECTIVE: Vital signs: Most recent vital signs, his last temperature 98.4 degrees, blood pressure 108/45, heart rate 78, respirations 18. He is on room air. Last recorded saturation is 94%. He has had 1,030 in, 1,154 out on dialysis. Labs: Sodium is 144, potassium 4, chloride 104, CO2 27, BUN 27, creatinine 7.9, glucose 135. His anion gap is 13, calcium is 9.2, phosphorus 4.8, albumin 2.7. Patient had a previous hemoglobin of 10.2 on the . PHYSICAL EXAMINATION: General: This is an 83-year-old white male resting quietly in bed. He appears chronically ill, no acute distress. Skin: Warm and dry. HEENT: Normocephalic, atraumatic. Conjunctivae pale pink. NICK. Mucous membranes are moist. Neck: Supple. Trachea midline. No evidence of JVD in the upright position. Cardiovascular: Regular rate and rhythm. No appreciable gallop. Lungs: Clear to auscultation bilaterally. Equal excursion. On room air. Abdomen: Soft, distended. Patient is currently on cycler attached to his PD treatment. Genitourinary: Not inspected. Minimal void with dialysis assist. Extremities: Have no edema. No clubbing or cyanosis. Neurological: Alert and oriented x3. Integumentary: Patient's PD catheter has a dressing that is currently dry and intact. No rashes or lesions. ASSESSMENT AND PLAN: 1. Chronic kidney disease stage 5D. The patient is currently attached to his peritoneal dialysis cycler for the evening treatment. We have requested that they leave him with 1.5 L dwell instead of 2.5. He states that his abdomen is less distended, more tolerable. We have discussed an increase in treatment during his nighttime on the cycler and leaving less dwell during the day. The patient states understanding. 2. Electrolytes and acid-base balance. This is stable. 3. Anemia. This is close to target. 4. Weakness. This has improved during his hospital stay. 5. Wound to the left small toe. This is being followed by wound care. 6. Decreased appetite with abdominal discomfort. This is now being followed by Dr. Guardado. I would like to thank you for allowing us to follow with this patient. Dictated by GORDON Yee for Rasta Bronson MD Face to face encounter, data reviewed, discussed with María Macias on 12/22/18. I agree with the above assessment and plan of care. cc: GORDON Yee MD Amit V. Vora, MD MTDD
--- NOTE | 2018-12-22 19:16 | GASTROENTEROLOGY PROGRESS NOTE ---
DATE: 12/22/2018 SUBJECTIVE: The patient was sitting on the side of the bed. He states he had a better day today. He has tolerated some of his diet. Reglan was started by Dr. Appiah. Per intake and output report today, he has eaten 100% of his breakfast and 100% of his lunch. OBJECTIVE: Vital Signs: Temperature 98.2 degrees, pulse 81, respirations 20, blood pressure 118/52. General: Patient is awake, alert, in no acute distress. LABORATORY: Chemistry: Sodium 144, potassium 4.0, chloride 104, CO2 27, BUN 27, creatinine 7.9, glucose 135, phosphorus 4.8. ASSESSMENT AND PLAN: 1. End-stage renal disease on peritoneal dialysis. 2. History of cirrhosis of the liver. 3. Poor appetite. Has seemed to improve today. Continue current medications. 4. Hypotension and dehydration. Continue current management. PLAN: Patient has had a good day today. We will continue current medications. Further plans to be made according to his progress. I have discussed this case with Dr. Guardado. Dictated by GORDON Wong for Doug Guardado MD cc: GODRON Jacobs MD Amit V. Vora, MD MTDD
[2018-12-22] MEDS: ULTRAM PO PRN (20:24)
[2018-12-22] MEDS: REMERON PO SCH (20:25)
[2018-12-22] MEDS: LIPITOR PO SCH (20:25)
[2018-12-22] MEDS: LUNESTA PO SCH (20:25)
[2018-12-23] MEDS: REGLAN PO SCH (06:00)
[2018-12-23] MEDS: PROTONIX PO SCH (06:00)
[2018-12-23 07:19] LABS: ALBUMIN 2.5 g/dL (3.5-5.0); PHOSPHORUS 4.4 mg/dL (2.7-4.5); POTASSIUM 3.7 mmol/L (3.5-5.1)
[2018-12-23 07:20] LABS: CREATININE 6.8 mg/dL (0.7-1.2)
[2018-12-23] MEDS: SENSIPAR PO SCH (08:15)
[2018-12-23] MEDS: KLOR-CON PO SCH (08:15)
[2018-12-23] MEDS: TUMS EXTRA STRENGTH PO SCH ×2 (08:15→20:40)
[2018-12-23] MEDS: PLAVIX PO SCH (08:16)
[2018-12-23] MEDS: PEPCID PO SCH ×2 (08:16→20:46)
[2018-12-23] MEDS: TRENTAL PO SCH (08:16)
[2018-12-23] MEDS: ROCALTROL PO SCH (08:16)
[2018-12-23] MEDS: PROSCAR PO SCH (08:16)
[2018-12-23] MEDS: PATIENT'S OWN MED PO SCH ×2 (08:18→08:19)
[2018-12-23] MEDS ORDERED: GENTAMICIN CREAM TOP ONE (08:44)
[2018-12-23] MEDS ORDERED: GENTAMICIN OINTMENT TOP ONE (09:15)
[2018-12-23] MEDS ORDERED: NS 1,000 ML IV ONE (10:37)
--- NOTE | 2018-12-23 11:00 | Diag Imaging Result Doc PS360 ---
CHEST-2 VIEWS - 12/23/2018 INDICATION: CADz, coughing. Assessing volume status. COMPARISON: 12/19/2018 FINDINGS: Stable trace scarring in the left lateral costophrenic angle. The lungs are clear. Heart size and pulmonary vascularity is normal. No pneumothorax or pleural effusion. IMPRESSION: Negative exam. Electronically signed by Omid Linda 12/23/2018 10:58 AM
--- NOTE | 2018-12-23 11:27 | PROGRESS NOTE ---
DATE: 12/23/2018 SUBJECTIVE: Mr. Fung's electrolytes are normal. Blood work is unchanged, however, his appetite is very, very poor. He did not eat anything. Reglan by mouth has not helped him. I am going to change it to IV 5 mg q.6 hours. He has gone for chest x-ray today. Overall condition is otherwise unchanged. He is not feeling well. Will start IV Clinimix and continue to watch him closely. He wants his telemetry off and we will take the telemetry out. -4 cc: Randall Appiah MD
--- NOTE | 2018-12-23 12:03 | NEPHROLOGY PROGRESS NOTE ---
DATE: 12/23/2018 SUBJECTIVE: According to his , he really did not eat better despite having a somewhat smaller fill volume today. She states he drinks very little at home. No shortness of breath today. No nausea or chest pain. OBJECTIVE: Vital Signs: Blood pressure 100/42, heart rate 76, respirations 18, afebrile. General: No acute distress. Skin: Warm and dry. Neck: Neck veins are not distended. Heart: Regular, with murmur. Lungs: Equal. No crackles. Abdomen: Soft, nontender. Bowel sounds present. Extremities: With trace edema. No clubbing or cyanosis. IMPRESSION AND PLAN: Intravascular volume depletion. I will administer 1 L of IV fluids today. I will also check a chest x-ray. We will continue his dialysis prescription that we have adopted. I appreciate the input from GI. We will check hemoglobin in the morning. cc: MD Randall Mccoy MD
[2018-12-23] MEDS: CLINIMIX E 4.25%-5% SOLUTION 1,000 ML IV SCH (12:32)
[2018-12-23] MEDS: REGLAN IV SCH ×3 (12:43→22:40)
--- NOTE | 2018-12-23 13:14 | GASTROENTEROLOGY PROGRESS NOTE ---
DATE: 12/23/2018 SUBJECTIVE: Patient states he feels okay today. He states he felt better yesterday. Per intake and output report yesterday, he ate 100% of two his meals. No documentation per today's breakfast but his family member at the bedside states he did not eat much for breakfast. I believe his Reglan dosage has been increased by Dr. Appiah. Patient states there are some things that come on his tray that he cannot eat. OBJECTIVE: Vital Signs: Temperature 98.6 degrees, pulse 76, respirations 18, blood pressure 100/42. General: Patient was awake and alert. No acute distress. LABORATORY: Chemistry: Sodium 139, potassium 3.7, chloride 99, CO2 26, BUN 32, creatinine 6.8, glucose 150, calcium 10.0, phosphorus 4.0, albumin 2.5. ASSESSMENT AND PLAN: 1. Poor appetite. 2. Volume depletion. Patient has been given IV fluids. Following with Nephrology. 3. End-stage renal disease on peritoneal dialysis. Following with Nephrology. PLAN: Continue current medications. Recommend patient eat what he can and if he does not like the food, he can ask for something else or the family can bring something from home as needed. We will see how he does over the weekend depending on his progress. If he continues to have problems, next step would be EGD for further evaluation. Further plans to be made as needed. I have discussed this case with Dr. Guardado. Dictated by GORDON Wong for Doug Guardado MD cc: GORDON Jacobs MD Amit V. Vora, MD
[2018-12-23] MEDS: ULTRAM PO PRN ×2 (13:35→22:40)
[2018-12-23] MEDS: MIRALAX PO PRN (14:02)
[2018-12-23] MEDS: REMERON PO SCH (20:40)
[2018-12-23] MEDS: LUNESTA PO SCH (20:40)
[2018-12-23] MEDS: LIPITOR PO SCH (20:40)
[2018-12-24] MEDS: REGLAN IV SCH ×3 (05:38→16:48)
[2018-12-24] MEDS: PROTONIX PO SCH (06:06)
[2018-12-24 07:52] LABS: ALBUMIN 2.6 g/dL (3.5-5.0); PHOSPHORUS 4.3 mg/dL (2.7-4.5); POTASSIUM 3.9 mmol/L (3.5-5.1)
[2018-12-24 07:56] LABS: CREATININE 7.2 mg/dL (0.7-1.2)
[2018-12-24 08:16] LABS: BASO# 0.03 X1000 (0.0-0.2); BASO% 0.6 % (0.0-0.8); EOS# 0.13 X1000 (0.0-0.7); EOS% 2.6 % (0.0-10.0); HEMATOCRIT 25.9 % (42.0-52.0); HEMOGLOBIN 8.6 g/dL (14.0-18.0); IMM GRAN# 0.02 X1000 (0.0-0.04); IMM GRAN% 0.4 % (0.0-0.5); LYMPH# 1.45 X1000 (1.2-3.4); LYMPH% 28.6 % (20.5-51.1); MCHC 33.2 g/dL (33-37); MCV 102.4 FL (81-99); MONO# 0.41 X1000 (0.11-0.59); MONO% 8.1 % (1.7-9.3); MPV 9.3 FL (7.4-10.4); NEUT# 3.03 X1000 (1.4-6.5); NEUT% 59.7 % (42.2-75.2); PLT 81 X1000 (130-400); RBC 2.53 XMIL (4.7-6.1); RDW 15.6 % (11.5-14.5); WBC 5.07 X1000 (4.8-10.8)
[2018-12-24] MEDS: SENSIPAR PO SCH (08:36)
[2018-12-24] MEDS: PLAVIX PO SCH (08:36)
[2018-12-24] MEDS: KLOR-CON PO SCH (08:37)
[2018-12-24] MEDS: PROSCAR PO SCH (08:37)
[2018-12-24] MEDS: TUMS EXTRA STRENGTH PO SCH ×2 (08:37→20:48)
[2018-12-24] MEDS: PATIENT'S OWN MED PO SCH ×2 (08:37→08:38)
[2018-12-24] MEDS: TRENTAL PO SCH (08:37)
[2018-12-24] MEDS: PEPCID PO SCH ×2 (08:37→20:48)
--- NOTE | 2018-12-24 10:27 | PROGRESS NOTE ---
DATE: 12/24/2018 Vital signs: Temperature 98.1 degrees, heart rate 80, respiration 18, blood pressure 102/47, O2 saturation on room air 98%. LABORATORY: Sodium 139, potassium 3.7, BUN 30, creatinine 6.8, albumin 2.5. The patient was able to eat better this morning and last night. He states he is feeling a little better. He has been ambulatory some. Apparently, discussion was made with Dr. Kraft and plans are that if he continues to do well over the weekend, he will be able to go home Wednesday. Hematocrit is low at 25.9, white blood count 5000. The anemia is most likely related to renal failure. PLAN: Continue conservative care and continue peritoneal dialysis. cc: MD Randall Neal MD
[2018-12-24] MEDS: CLINIMIX E 4.25%-5% SOLUTION 1,000 ML IV SCH (11:55)
--- NOTE | 2018-12-24 13:16 | NEPHROLOGY PROGRESS NOTE ---
DATE: 12/24/2018 SUBJECTIVE: He is still not eating. There is really no discernible difference in his symptoms with the smaller fill volume during the day. Some increasing swelling and perhaps shortness of breath. OBJECTIVE: Vital Signs: Blood pressure 102/47, heart rate 80, respiration 18, afebrile. General: No acute distress. Skin: Warm and dry. Neck: Neck veins are not distended. Heart: Regular. Lungs: no crackles or wheezes Extremities: 1+ edema. No clubbing or cyanosis. IMPRESSION: Chronic kidney disease 5D. He does have some volume overload today. We will perform a midday exchange with 2.5% Dianeal and then use all 2.5% Dianeal tonight during his dialysis treatment. Otherwise, electrolytes/acid base in target. Hemoglobin has dropped significantly to 8.6. Once his volume status is improved, we may give him 1 unit of packed red blood cells. cc: MD Randall Mccoy MD MTDD
[2018-12-24] MEDS: ULTRAM PO PRN (13:41)
[2018-12-24] MEDS: ULTRACET 37.5MG/325MG PO PRN (18:29)
[2018-12-24] MEDS: LIPITOR PO SCH (20:48)
[2018-12-24] MEDS: LUNESTA PO SCH (20:48)
[2018-12-24] MEDS: REMERON PO SCH (20:48)
[2018-12-25] MEDS: REGLAN IV SCH ×4 (00:13→17:20)
[2018-12-25] MEDS: PROTONIX PO SCH (06:10)
[2018-12-25] MEDS: TRENTAL PO SCH (08:08)
[2018-12-25] MEDS: PEPCID PO SCH ×2 (08:10→21:11)
[2018-12-25] MEDS: PLAVIX PO SCH (08:10)
[2018-12-25] MEDS: PROSCAR PO SCH (08:10)
[2018-12-25] MEDS: KLOR-CON PO SCH (08:10)
[2018-12-25] MEDS: ROCALTROL PO SCH (08:10)
[2018-12-25] MEDS: TUMS EXTRA STRENGTH PO SCH ×2 (08:10→21:11)
[2018-12-25] MEDS: PATIENT'S OWN MED PO SCH ×2 (08:16→08:17)
--- NOTE | 2018-12-25 09:30 | PROGRESS NOTE ---
DATE: 12/25/2018 VITAL SIGNS: Stable with temperature 98.2 degrees, heart rate 72, respirations 18, blood pressure 82/35 (low), O2 saturation on room air 95%. SUBJECTIVE: The patient does not feel like eating much breakfast this morning. He had peritoneal dialysis last night. He has no abdominal discomfort. Chest is clear. Hopefully, he will feel a little better through the day. He rested fairly well last night. He is on no p.o. blood pressure medicine. He is receiving amino acids 40 mL/h IV. PLAN: Hopefully discharge tomorrow. cc: MD Randall Neal MD
[2018-12-25] MEDS: ULTRAM PO PRN (09:45)
[2018-12-25] MEDS: SENSIPAR PO SCH (09:46)
[2018-12-25] MEDS: CLINIMIX E 4.25%-5% SOLUTION 1,000 ML IV SCH (11:53)
[2018-12-25] MEDS: TYLENOL PO PRN (17:25)
[2018-12-25] MEDS: LIPITOR PO SCH (21:11)
[2018-12-25] MEDS: REMERON PO SCH (21:11)
[2018-12-25] MEDS: ULTRACET 37.5MG/325MG PO PRN (21:12)
[2018-12-25] MEDS: LUNESTA PO SCH (21:12)
[2018-12-26] MEDS: REGLAN IV SCH ×5 (00:02→23:55)
[2018-12-26] MEDS: PROTONIX PO SCH (06:06)
[2018-12-26 08:06] LABS: HEMATOCRIT 25.2 % (42.0-52.0); HEMOGLOBIN 8.4 g/dL (14.0-18.0); MCH 34.1 PG (27-31); MCHC 33.3 g/dL (33-37); MCV 102.4 FL (81-99); MPV 9.4 FL (7.4-10.4); RBC 2.46 XMIL (4.7-6.1); WBC 5.53 X1000 (4.8-10.8)
[2018-12-26 08:12] LABS: CALCIUM 9.9 mg/dL (8.8-10.2); PHOSPHORUS 4.7 mg/dL (2.7-4.5); POTASSIUM 4.6 mmol/L (3.5-5.1)
[2018-12-26] MEDS: PLAVIX PO SCH (08:41)
[2018-12-26] MEDS: PEPCID PO SCH ×2 (08:41→21:00)
[2018-12-26] MEDS: KLOR-CON PO SCH (08:41)
[2018-12-26] MEDS: TUMS EXTRA STRENGTH PO SCH ×2 (08:42→21:00)
[2018-12-26] MEDS: TRENTAL PO SCH (08:42)
[2018-12-26] MEDS: PROSCAR PO SCH (08:42)
[2018-12-26] MEDS: SENSIPAR PO SCH (08:43)
[2018-12-26] MEDS ORDERED: NS 500 ML IV ONE (09:04)
[2018-12-26] MEDS: PATIENT'S OWN MED PO SCH ×2 (09:18→11:16)
--- NOTE | 2018-12-26 09:35 | PROGRESS NOTE ---
DATE: 12/26/2018 Mr. Fung is feeling very weak. His hemoglobin is 8.4. He is extremely weak, cannot he eat. Lungs are clear. He has renal failure. I personally feel that he will be benefitted with blood transfusion. Will give him 1 unit today. cc: Randall Appiah MD
--- NOTE | 2018-12-26 09:56 | NEPHROLOGY PROGRESS NOTE ---
DATE: 12/26/2018 SUBJECTIVE: Patient resting in bed. He has not eaten any breakfast this morning. His states that he did have labs drawn. Those results are not yet available. OBJECTIVE: Vital Signs: Temperature 97.8 degrees, pulse 78, respiratory rate 18, blood pressure 125/59. Intake 1.1 L. Output 2.8 L. General: This is an elderly gentleman, resting in bed. He is awake and alert. He is quite weak. HEENT: Normocephalic, atraumatic. NICK. Oral mucosa is dry. Neck: Supple without JVD. Cardiovascular: Regular rate and rhythm. Pulmonary: He is clear bilaterally. He has decreased breath sounds, but no rales or wheezes. Abdomen: Soft. PD catheter intact. : Minimal void. Dialysis assist. Extremities: He has trace edema. No clubbing or cyanosis. Integumentary: Skin is pale, warm, and dry. LABORATORY DATA: Pending. ASSESSMENT AND PLAN: 1. Chronic kidney disease 5D. We have transitioned him over to 2.5% Dianeal solution. Over the weekend, he has been negative 1.6 liters, and then a total negative of 1.5 liters both Wednesday and Wednesday. Will try to transition him back to his regular schedule. It is noted that he has total parenteral nutrition hanging in assistance for nutrition, which is increasing his overall intake. 2. Anemia. His last hemoglobin was 8.6. I have ordered labs this morning. If his hemoglobin has dropped further, we will transfuse packed red blood cells. 3. Hypertension, controlled. 4. Gastrointestinal, ? esophagogastroduodenoscopy. They are following, and will make a decision if he needs to have further interventional assessment completed. Discussed with patient and . I believe he needs to go onto HD because of his nutritional barriers. They understand and accept this. I consulted Dr. Michael. rg Dictated by GORDON Nascimento for Rasta Bronson MD Face to face encounter, data reviewed, discussed with Lucila Ennis on 12/26/18. I agree with the above assessment and plan of care. rg cc: MD Randall Mccoy MD [facility]
[2018-12-26 10:17] LABS: BASO# 0.06 X1000 (0.0-0.2); BASO% 0.8 % (0.0-0.8); EOS% 4.1 % (0.0-10.0); HEMATOCRIT 27.8 % (42.0-52.0); HEMOGLOBIN 9.3 g/dL (14.0-18.0); IMM GRAN# 0.04 X1000 (0.0-0.04); IMM GRAN% 0.5 % (0.0-0.5); LYMPH# 1.94 X1000 (1.2-3.4); LYMPH% 26.4 % (20.5-51.1); MCH 34.3 PG (27-31); MCHC 33.5 g/dL (33-37); MCV 102.6 FL (81-99); MONO# 0.74 X1000 (0.11-0.59); MONO% 10.1 % (1.7-9.3); MPV 9.5 FL (7.4-10.4); NEUT# 4.26 X1000 (1.4-6.5); NEUT% 58.1 % (42.2-75.2); PLT 124 X1000 (130-400); RBC 2.71 XMIL (4.7-6.1); RDW 15.8 % (11.5-14.5); WBC 7.34 X1000 (4.8-10.8)
[2018-12-26] MEDS: TESSALON PO PRN ×2 (11:44→22:07)
[2018-12-26] MEDS: ULTRAM PO PRN (12:47)
[2018-12-26] MEDS: CLINIMIX E 4.25%-5% SOLUTION 1,000 ML IV SCH (14:25)
--- NOTE | 2018-12-26 16:22 | GASTROENTEROLOGY PROGRESS NOTE ---
DATE: 12/26/2018 SUBJECTIVE: Patient is lying in bed in no acute distress. He is complaining of some left shoulder pain. He denies abdominal pain. Family is with him, including his . She states he only ate a small amount of his breakfast and lunch today. Patient states he just does not have an appetite to eat. No reported nausea. He has had a drop in his hemoglobin and hematocrit and is receiving 1 unit of packed red blood cells today. No evidence of active GI bleeding. OBJECTIVE: Vital Signs: Temperature 98.2 degrees, pulse 82, respirations 16, blood pressure 148/56. General: Patient is awake and alert, in no acute distress. Respiratory: Lung sounds essentially clear. Cardiovascular: Regular rate and rhythm. Abdomen: Soft. He has dialysis catheter intact. Nontender to palpation. LABORATORY: Hematology: WBC 7.34, hemoglobin 9.3, hematocrit 27.8, MCV 102.6, platelets 124,000. Chemistry: Sodium 133, potassium 4.6, chloride 93, CO2 of 27, BUN 45, creatinine 7.0, glucose 145, albumin 3.0. ASSESSMENT AND PLAN: 1. Chronic kidney disease on peritoneal dialysis. Continue management per Nephrology. 2. Anemia. Patient has had drop in his hemoglobin and hematocrit. He is receiving 1 unit of packed red blood cells. 3. Poor appetite, weakness. Patient continues to have issues with eating. He was tried on Reglan with no real improvement in his symptoms. I will discuss with Dr. Guardado about proceeding with possible EGD for further evaluation. Further plans will be made as needed. Dictated by GORDON Wong for Doug Guardado MD cc: GORDON Jacobs MD Amit V. Vora, MD
[2018-12-26] MEDS: LIPITOR PO SCH (21:01)
[2018-12-26] MEDS: REMERON PO SCH (21:01)
[2018-12-26] MEDS: LUNESTA PO SCH (21:02)
[2018-12-26] MEDS ORDERED: LASIX IV ONE (22:14)
[2018-12-27] MEDS: ULTRAM PO PRN ×3 (01:03→23:21)
[2018-12-27 04:59] LABS: ALLEN TEST YES; BLOOD TYPE ARTERIAL; HCO3-(ACT) 25.7 mmoll (20.0-26.0); METHB 1.5 % (0.0-1.5); O2HB 94.6 % (95.0-99.0); PCO2(98.6) 37 mmHg (35-45); PO2(98.6) 77 mmHg (60-100); SAMPLE BLOOD; THB 9.7 g/dL (11.5-17.4); pH(98.6) 7.44 (7.35-7.45)
[2018-12-27 05:00] LABS: MODALITY ROOM AIR
[2018-12-27] MEDS: REGLAN IV SCH ×4 (05:21→23:21)
[2018-12-27] MEDS ORDERED: NS 2,000 ML MISC PRN (06:42)
[2018-12-27] MEDS ORDERED: TIGHT: 0.2 ML/HR FOR DIALYSIS MISC PRN (06:42)
[2018-12-27] MEDS ORDERED: HEPARIN IV PRN (06:42)
--- NOTE | 2018-12-27 06:56 | GENERAL SURGERY CONSULTATION ---
DATE: 12/27/2018 REASON FOR CONSULTATION: I have been asked to place a tunneled catheter to begin dialysis. HISTORY OF PRESENT ILLNESS: Mr. Fung is an 83-year-old gentleman admitted with hypotension and dehydration. He has known chronic kidney disease and cirrhosis of the liver. Dr. Bronson was consulted. He is on peritoneal dialysis at night. He has a history of coronary artery disease, severe peripheral vascular disease, a history of brain surgery for an aneurysm. PAST SURGICAL HISTORY: Previous surgery includes a peritoneal dialysis catheter, the craniotomy, parathyroidectomy. SOCIAL HISTORY: He is , lives with his spouse. He has an attentive . There is no tobacco, alcohol, or illicit drug use currently. FAMILY HISTORY: Pertinent for arthritis and cardiac disease. MEDICATIONS: Listed. ALLERGIES: He is allergic to Ambien. REVIEW OF SYSTEMS: As noted above. PHYSICAL EXAMINATION: Vital Signs: He is afebrile. Heart rate 76, blood pressure 128/51. There was no clavicular distortion. Lungs: Bilateral breath sounds. Heart: Regular rate and rhythm. Abdomen: Soft. He has some ulcers on his toes. He is awake and alert this morning. DIAGNOSTIC DATA/LABORATORY DATA: The pH is 7.44 this morning. BUN 45, creatinine 7.0. PLAN: The plan will be to place a tunneled catheter today. I have discussed this with him and his . They understand and agree to proceed. cc: MD Randall Lyn MD
--- NOTE | 2018-12-27 07:01 | Diag Imaging Result Doc PS360 ---
EXAM: CHEST-1 VIEW 12/26/2018 HISTORY: FVO TECHNIQUE: AP portable at 2232 COMMENT: The inspiration is less optimal than on 12/23/2018. Considering this, there has been no significant change since the previous study. IMPRESSION: Poor inspiration. Electronically signed by Brooks Nieto 12/27/2018 6:58 AM
--- NOTE | 2018-12-27 09:28 | PROGRESS NOTE ---
DATE: 12/27/2018 SUBJECTIVE: Mr. Fung is in about the same general condition. According to his , he is not feeling that good, has poor appetite, and feeling weak. He has taken regular without much improvement. Yesterday, we transfused 1 unit of packed RBC, and that has made the hemoglobin come up to finally 10.2 from 8.4. He had blood gases, which were unremarkable. He was somewhat congested last night. IV Lasix was given. However, he cannot urinate much. Overall condition is almost unchanged. -2 cc: Randall Appiah MD
[2018-12-27] MEDS ORDERED: DIPRIVAN 1% ONE (09:46)
[2018-12-27] MEDS ORDERED: FENTANYL ONE (09:47)
[2018-12-27] MEDS ORDERED: XYLOCAINE-MPF 1%/EPI 1:200,000 ONE (09:48)
[2018-12-27] MEDS ORDERED: HEPARIN ONE ×3 (09:48→10:28)
[2018-12-27] MEDS ORDERED: NS 250 ML ONE (09:48)
[2018-12-27] MEDS ORDERED: KEFZOL 1 GM/D5W 1 GM/50 ML IVPB ONE (09:51)
--- NOTE | 2018-12-27 09:53 | NEPHROLOGY PROGRESS NOTE ---
DATE: 12/27/2018 SUBJECTIVE: Patient resting in bed. He is waiting to go to surgery later today for a tunneled dialysis catheter. His stated that last night he began coughing up copious amounts of liquid. He was given some Lasix and breathing was better. It was noted that he had some packed red blood cells yesterday. OBJECTIVE: Vital Signs: Temperature 98.4 degrees, pulse 76, respiratory rate 19, blood pressure 128/51. Intake 1.5 L; output has not been documented yet. General: Elderly gentleman resting in bed. He is awake and alert. He appears to feel poorly, but is in no acute distress. HEENT: Normocephalic, atraumatic. NICK. Neck: Supple without JVD. Cardiovascular: Regular rate and rhythm. Pulmonary: Equal excursion. He has no wheeze or rhonchi today. Abdomen: Soft, with positive bowel sounds. PD catheter noted. : Not inspected. Voiding. Extremities: No clubbing, cyanosis, edema Integumentary: Skin is pale, warm, and dry. LAB DATA: Pending. ASSESSMENT AND PLAN: 1. Chronic kidney disease 5 D in the setting of inadequate nutritional intake. We are transitioning the patient over to hemodialysis at least initially. Anticipate as a temporary measure until the patient can recover from his current illness. He is to have a tunnel dialysis catheter today and, because of his episode yesterday with some question of fluid overload, we will go ahead and dialyze today. Review of his chest x-ray yesterday did not show any obvious pulmonary edema or pleural effusion. 2. Anemia. Again, he received packed red blood cells yesterday. His labs are pending today. Dictated by GORDON Nascimento for Rasta Bronson MD Face to face encounter, data reviewed, discussed with Lucila Ennis on 12/27/18. I agree with the above assessment and plan of care. cc: MD Randall Mccoy MD MTDD
[2018-12-27] MEDS ORDERED: PITRESSIN ONE (10:21)
--- NOTE | 2018-12-27 12:11 | OPERATIVE NOTE ---
PROCEDURE DATE: 12/27/2018 NAME OF PROCEDURE: Placement of right internal jugular vein tunneled dialysis catheter (19 cm GlidePath) with ultrasound and fluoroscopic guidance. SURGEON: Rupert Michael MD. CANE FLUME CHUTE OPERATOR: Magda. PREOPERATIVE DIAGNOSIS: Chronic kidney disease 5. POSTOPERATIVE DIAGNOSIS: Chronic kidney disease 5. INDICATION: I have been asked to place a tunneled catheter for hemodialysis for Mr. Fung. DESCRIPTION OF PROCEDURE: After informed consent was obtained, the patient was brought to the operating room. Satisfactory general anesthesia was achieved and an LMA was used. Next, both sides of the neck were prepped and draped in a sterile fashion. We used an ultrasound to image the right internal jugular vein. It was open, adequately patent and did compress easily. We anesthetized the skin and made a stab incision and accessed the internal jugular vein. We then passed the guidewire and did have to use a dilator to manipulate the guidewire to go into the superior vena cava. We then anesthetized the skin below the clavicle, made a small stab incision and tunneled a 19 cm GlidePath from the infraclavicular incision up to the neck incision. We then passed our other dilator and then passed a dilator and introducer sheath into the superior vena cava. We removed the dilator and guidewire and introduced the GlidePath into the sheath and passed it to the extent that it would go. We peeled away the sheath as we introduced it and the tip was near the right atrial junction. We were able to aspirate easily and irrigate easily from each lumen. We then flushed each lumen with strong heparin at 5000 units/mL, that is 1.7 mL in one lumen and 1.7 mL in the other lumen. We then closed the skin of the neck incision with 4-0 Polysorb subcuticular stitch. 3-0 nylon was used to secure the flange to the skin. Telfa and sterile OpSite dressings were applied. He tolerated it well. Estimated blood loss was 3 mL. He was sent to the recovery room in satisfactory condition. cc: MD Randall Lyn MD
[2018-12-27] MEDS: PEPCID PO SCH ×3 (12:14→20:34)
[2018-12-27] MEDS: CLINIMIX E 4.25%-5% SOLUTION 1,000 ML IV SCH ×2 (12:16→23:23)
[2018-12-27] MEDS: PATIENT'S OWN MED PO SCH ×2 (12:17→12:20)
[2018-12-27] MEDS: PROTONIX PO SCH (12:18)
[2018-12-27] MEDS: ROCALTROL PO SCH ×3 (12:21→12:32)
[2018-12-27] MEDS: SENSIPAR PO SCH (12:23)
[2018-12-27] MEDS: PLAVIX PO SCH (12:24)
[2018-12-27] MEDS: TUMS EXTRA STRENGTH PO SCH ×2 (12:24→20:34)
[2018-12-27] MEDS: PROSCAR PO SCH (12:25)
[2018-12-27] MEDS: TRENTAL PO SCH (12:26)
[2018-12-27] MEDS ORDERED: XYLOCAINE-MPF 2% ONE (12:35)
[2018-12-27] MEDS ORDERED: NEO-SYNEPHRINE ONE (12:35)
[2018-12-27] MEDS: KLOR-CON PO SCH (12:41)
--- NOTE | 2018-12-27 13:03 | GASTROENTEROLOGY CONSULTATION ---
DATE: 12/27/2018 The patient was gone for dialysis catheter placement at the time of my rounds. No family was at the bedside. We have tentatively placed the patient for an EGD on due to his continued decrease in appetite and anemia. We will continue to follow and further plans will be made as needed. I have discussed this case with Dr. Guardado. Dictated by GORDON Wong for Doug Guardado MD cc: GORDON Jacobs MD Amit V. Vora, MD
[2018-12-27] MEDS: TESSALON PO PRN ×2 (13:52→23:21)
[2018-12-27] MEDS ORDERED: DDAVP IV ONE (14:15)
[2018-12-27] MEDS: DDAVP IV ONE ×2 (15:00→19:36)
[2018-12-27] MEDS: NS IV ONE ×2 (15:00→19:36)
[2018-12-27] MEDS: ATIVAN IV PRN (15:46)
[2018-12-27] MEDS: TYLENOL PO PRN (17:30)
[2018-12-27] MEDS: SANTYL OINT TOP SCH (17:31)
[2018-12-27 19:21] LABS: HEMATOCRIT 29.3 % (42.0-52.0); HEMOGLOBIN 9.8 g/dL (14.0-18.0); MCH 33.7 PG (27-31); MCHC 33.4 g/dL (33-37); MCV 100.7 FL (81-99); MPV 8.8 FL (7.4-10.4); RBC 2.91 XMIL (4.7-6.1); RDW 15.8 % (11.5-14.5); WBC 7.44 X1000 (4.8-10.8)
[2018-12-27 19:26] LABS: INR 1.05; PROTIME 13.8 Seconds (11.0-16.0); PTT 31.5 Seconds (22.3-41.8)
[2018-12-27] MEDS: REMERON PO SCH (20:34)
[2018-12-27] MEDS: LUNESTA PO SCH (20:34)
[2018-12-27] MEDS: LIPITOR PO SCH (20:34)
[2018-12-28] MEDS: ATIVAN IV PRN (03:22)
[2018-12-28] MEDS: REGLAN IV SCH ×4 (05:17→23:07)
[2018-12-28] MEDS ORDERED: HEPARIN IV PRN (06:40)
[2018-12-28] MEDS ORDERED: TIGHT: 0.2 ML/HR FOR DIALYSIS MISC PRN (06:40)
[2018-12-28 08:03] LABS: HEMATOCRIT 22.8 % (42.0-52.0); HEMOGLOBIN 7.5 g/dL (14.0-18.0); MCH 33.6 PG (27-31); MCHC 32.9 g/dL (33-37); MCV 102.2 FL (81-99); MPV 9.8 FL (7.4-10.4); RBC 2.23 XMIL (4.7-6.1); RDW 15.7 % (11.5-14.5); WBC 5.05 X1000 (4.8-10.8)
[2018-12-28 08:22] LABS: POTASSIUM 5.2 mmol/L (3.5-5.1)
[2018-12-28 08:23] LABS: ALBUMIN 2.6 g/dL (3.5-5.0); CALCIUM 8.9 mg/dL (8.8-10.2); CREATININE 6.9 mg/dL (0.7-1.2)
--- NOTE | 2018-12-28 08:40 | Diag Imaging Result Doc PS360 ---
EXAM: CHEST-PORTABLE 12/28/2018 HISTORY: tunnel cath TECHNIQUE: AP upright at 0828 COMMENT: There is a double-lumen catheter in the right internal jugular with its tip in the superior vena cava. There is platelike atelectasis in both lung bases. The latter finding was not present on 12/26/2018. There is no evidence of pneumothorax or pleural fluid collection. IMPRESSION: Bibasilar atelectasis. Electronically signed by Brooks Nieto 12/28/2018 8:38 AM
--- NOTE | 2018-12-28 09:10 | PROGRESS NOTE ---
DATE: 12/28/2018 Mr. Fung is not doing well. He had some pulmonary congestion this morning. His chest x-ray shows bilateral platelike atelectasis. However, it does not appears like he has pneumonia. He had hemodialysis yesterday. . His hemoglobin has dropped from 9.8 to 7.5. Chemistry looks a little bit altered but, still, there is not a big change. BUN has gone up to 51, creatinine to 6.9. Overall prognosis appears poor. He is going to get hemodialysis again today. Family has decided about Do Not Resuscitate 1. -1 cc: Randall Appiah MD MTDD
[2018-12-28] MEDS: NS 2,000 ML MISC PRN (10:25)
[2018-12-28] MEDS: KLOR-CON PO SCH (10:52)
[2018-12-28] MEDS: PROTONIX PO SCH (10:52)
[2018-12-28] MEDS: PATIENT'S OWN MED PO SCH ×2 (10:52→10:54)
[2018-12-28] MEDS: SENSIPAR PO SCH (10:53)
[2018-12-28] MEDS: TUMS EXTRA STRENGTH PO SCH ×2 (10:53→20:59)
[2018-12-28] MEDS: TRENTAL PO SCH (10:54)
[2018-12-28] MEDS: PLAVIX PO SCH (10:54)
[2018-12-28] MEDS: PROSCAR PO SCH (10:54)
[2018-12-28] MEDS: PEPCID PO SCH ×2 (10:55→20:59)
--- NOTE | 2018-12-28 13:33 | NEPHROLOGY PROGRESS NOTE ---
DATE: 12/28/2018 SUBJECTIVE: Patient was difficult to arouse this morning. Family states that he has not done well after surgery. He has significant bleeding after his catheter placement and had difficulty with dialysis. PHYSICAL EXAMINATION: Vital Signs: Temperature 98.5 degrees, pulse 84, respiratory rate 16, blood pressure 113/54, intake 500 mL, output 291. General: This is a chronically ill-appearing gentleman resting in bed. He will rouse to verbal and tactile stimuli but drifts off back to sleep almost immediately. HEENT: Normocephalic, atraumatic. Conjunctivae are pale. Oral mucosa is dry. Neck: Supple. No JVD. Cardiovascular: Regular rate and rhythm. Pulmonary: Equal excursion. Decreased breath sounds. decreased inspiratory effort. Abdomen: Positive bowel sounds. : Not inspected. Extremities: No clubbing, cyanosis, or edema. Integumentary: Warm and dry. LAB DATA: Hemoglobin 7.5, potassium 5.2, creatinine 2.9, albumin 2.6. ASSESSMENT AND PLAN: 1. CKD 5D in the setting of inadequate nutritional intake. He has been transitioned over to hemodialysis. We will try to dialyze today and transfuse blood during dialysis. He had bleeding after his catheter placement last night. The patient is sedated today. This could be residual from anesthesia and/or uremia. We discussed with the family that we will continue to aggressively dialyze and treat medically as possible. We further discussed with the family the patient's wishes, also outcomes and expectations if he were to have cardiopulmonary collapse. Family stated very plainly that the patient would not want CPR, intubation, or other heroic measures as they agree that this would not improve his outcome and would likely bring further suffering. Therefore we will request that the patient be made a Do Not Resuscitate. 2. Anemia. Again, he had significant blood loss last night. Receiving transfusion today indication. Dictated by GORDON Nascimento for Rasta Bronson MD Face to face encounter, data reviewed, discussed with Lucila Ennis on 12/28/18. I agree with the above assessment and plan of care. cc: MD Randall Mccoy MD [facility]
[2018-12-28] MEDS: CLINIMIX E 4.25%-5% SOLUTION 1,000 ML IV SCH ×2 (13:47→21:04)
[2018-12-28 14:18] LABS: HEPATITIS PROFILE ACUTE SEE COMMENTS
[2018-12-28] MEDS: SANTYL OINT TOP SCH (15:56)
--- NOTE | 2018-12-28 19:28 | GASTROENTEROLOGY PROGRESS NOTE ---
DATE: 12/28/2018 SUBJECTIVE: Patient was seen in the dialysis unit. He had a dialysis catheter placed yesterday. He is currently receiving dialysis at the time of my evaluation. Apparently, patient has had some bleeding after the catheter placement yesterday, and has had some hypotension, anemia, and is receiving 1 unit of packed red blood cells on dialysis today. OBJECTIVE: Vital Signs: Temperature 97.9 degrees, pulse 73, respirations 14, blood pressure 98/52. General: The patient was resting. He did arouse easily. He was oriented and alert. LABORATORY: Hematology: WBC 5.05, hemoglobin 7.5, hematocrit 22.8, MCV 102.2, platelets 86,000. Coagulation: Pro-time 13.8, INR 1.05, PTT 31.5. Chemistry: Sodium 133, potassium 5.2, chloride 96, CO2 26, BUN 51, creatinine 6.9, glucose 112, phosphorus 6.0, albumin 2.6. ASSESSMENT AND PLAN: 1. Chronic renal failure. Patient has been transitioned from peritoneal dialysis to hemodialysis. He had some bleeding after his catheter placement yesterday. He is currently receiving dialysis today. 2. Anemia. Patient had some blood loss yesterday after surgery. He is receiving 1 unit of packed red blood cells today. 3. Poor nutrition. We had tentatively scheduled patient for an esophagogastroduodenoscopy tomorrow for further evaluation, but due to his worsening status, we will postpone that procedure at present time due to high risk. Continue current diet and supplement with Glucerna. I have discussed the reasoning for postponing the esophagogastroduodenoscopy with the multiple family members that were in his room. I have discussed this case with Dr. Guardado. Dictated by GORDON Wong for Doug Guardado MD cc: GORDON Jacobs MD Amit V. Vora, MD MTDD
[2018-12-28] MEDS: REMERON PO SCH (20:59)
[2018-12-28] MEDS: TYLENOL PO PRN (20:59)
[2018-12-28] MEDS: LUNESTA PO SCH (20:59)
[2018-12-28] MEDS: TESSALON PO PRN (21:04)
[2018-12-28] MEDS: LIPITOR PO SCH (21:04)
--- NOTE | 2018-12-28 21:38 | GENERAL SURGERY PROGRESS NOTE ---
DATE: 12/28/2018 Mr. Fung seems to be much clearer today after dialysis. There is no further bleeding from his catheter exit site. He is improved. cc: MD Randall Lyn MD
[2018-12-29] MEDS: ULTRACET 37.5MG/325MG PO PRN ×2 (00:07→21:20)
[2018-12-29] MEDS: REGLAN IV SCH ×4 (06:14→23:36)
[2018-12-29] MEDS: PROTONIX PO SCH (06:16)
[2018-12-29 06:55] LABS: HEMOGLOBIN 8.1 g/dL (14.0-18.0); MCH 33.3 PG (27-31); MCHC 32.4 g/dL (33-37); MCV 102.9 FL (81-99); RBC 2.43 XMIL (4.7-6.1); RDW 16.9 % (11.5-14.5); WBC 3.74 X1000 (4.8-10.8)
[2018-12-29 07:12] LABS: ALBUMIN 2.6 g/dL (3.5-5.0); CALCIUM 9.1 mg/dL (8.8-10.2); CREATININE 4.8 mg/dL (0.7-1.2); PHOSPHORUS 5.4 mg/dL (2.7-4.5); POTASSIUM 4.6 mmol/L (3.5-5.1)
[2018-12-29] MEDS ORDERED: NS 2,000 ML MISC PRN (07:26)
[2018-12-29] MEDS ORDERED: TIGHT: 0.2 ML/HR FOR DIALYSIS MISC PRN (07:26)
[2018-12-29] MEDS ORDERED: HEPARIN IV PRN (07:26)
[2018-12-29] MEDS: NS 2,000 ML MISC PRN (09:00)
--- NOTE | 2018-12-29 09:29 | PROGRESS NOTE ---
DATE: 12/29/2018 Mr. Fung has done well now with the hemodialysis. He is feeling much better. He started eating some. CBC is still showing anemia, hemoglobin 8.1. His BUN and creatinine reveal significant improvement in both BUN and creatinine, which are down to 34 and 4.8 respectively. This is a significant drop with the hemodialysis and there is a significant improvement also. We will continue with the current management. -1 cc: Randall Appiah MD
[2018-12-29] MEDS: KLOR-CON PO SCH (14:23)
[2018-12-29] MEDS: TRENTAL PO SCH (14:23)
[2018-12-29] MEDS: SENSIPAR PO SCH (14:23)
[2018-12-29] MEDS: PROSCAR PO SCH (14:24)
[2018-12-29] MEDS: ROCALTROL PO SCH (14:24)
[2018-12-29] MEDS: PATIENT'S OWN MED PO SCH ×3 (15:47→16:21)
[2018-12-29] MEDS: TUMS EXTRA STRENGTH PO SCH ×2 (15:47→21:21)
[2018-12-29] MEDS: PLAVIX PO SCH (15:48)
[2018-12-29] MEDS: PEPCID PO SCH ×2 (16:21→21:21)
[2018-12-29] MEDS: SANTYL OINT TOP SCH (16:37)
[2018-12-29] MEDS: ULTRAM PO PRN (17:52)
--- NOTE | 2018-12-29 19:15 | NEPHROLOGY PROGRESS NOTE ---
DATE: 12/29/2018 SUBJECTIVE: He is somewhat somnolent this morning. Again did not sleep all that well last night, but he was much more alert yesterday and interactive. Ate well. OBJECTIVE: Vital Signs: Blood pressure 108/47, heart rate 77, respirations 16, afebrile. General: No acute distress. Skin: Warm and dry. Conjunctivae are pink. Neck: Veins are not distended. Heart: Regular. No gallops. Lungs: Equal. No crackles. Abdomen: Soft, nontender. Bowel sounds present. Extremities: Minimal edema. No clubbing or cyanosis. IMPRESSION: 1. Altered mental status. Improved. 2. Anorexia. Improved with hemodialysis. 3. Chronic kidney disease 5D. Hemodialysis again today. 1 L ultrafiltration. 4. Electrolytes/acid base in target. 5. Anemia. Hemoglobin 8.1 today. He has received 2 units of packed red blood cells. cc: MD Randall Mccoy MD
[2018-12-29] MEDS: LUNESTA PO SCH (21:20)
[2018-12-29] MEDS: REMERON PO SCH (21:21)
[2018-12-29] MEDS: LIPITOR PO SCH (21:21)
[2018-12-29] MEDS: CLINIMIX E 4.25%-5% SOLUTION 1,000 ML IV SCH (21:27)
[2018-12-30] MEDS: REGLAN IV SCH ×4 (04:24→23:40)
[2018-12-30] MEDS: PROTONIX PO SCH (06:42)
[2018-12-30] MEDS: MIRALAX PO PRN (06:47)
[2018-12-30 09:18] LABS: CALCIUM 9.2 mg/dL (8.8-10.2); CREATININE 3.6 mg/dL (0.7-1.2); PHOSPHORUS 4.2 mg/dL (2.7-4.5); POTASSIUM 4.3 mmol/L (3.5-5.1)
[2018-12-30 09:41] LABS: HEMATOCRIT 29.1 % (42.0-52.0); HEMOGLOBIN 9.4 g/dL (14.0-18.0); MCH 32.4 PG (27-31); MCHC 32.3 g/dL (33-37); MCV 100.3 FL (81-99); MPV 9.5 FL (7.4-10.4); RBC 2.9 XMIL (4.7-6.1); RDW 16.2 % (11.5-14.5); WBC 4.62 X1000 (4.8-10.8)
[2018-12-30] MEDS: PLAVIX PO SCH (10:50)
[2018-12-30] MEDS: TUMS EXTRA STRENGTH PO SCH ×2 (10:50→20:49)
[2018-12-30] MEDS: TRENTAL PO SCH (10:50)
[2018-12-30] MEDS: SENSIPAR PO SCH (10:51)
[2018-12-30] MEDS: PROSCAR PO SCH (10:51)
[2018-12-30] MEDS: PATIENT'S OWN MED PO SCH ×2 (10:51)
[2018-12-30] MEDS: KLOR-CON PO SCH (10:51)
[2018-12-30] MEDS: PEPCID PO SCH ×2 (10:51→20:49)
[2018-12-30] MEDS: SANTYL OINT TOP SCH (10:53)
--- NOTE | 2018-12-30 11:35 | PROGRESS NOTE ---
DATE: 12/30/2018 SUBJECTIVE: Mr. Fung is doing much better. His electrolytes, BUN and creatinine are improving. His appetite is much better. He has been eating better. He had his 3rd set of hemodialysis done, he is going to continue with hemodialysis and we want to make sure that he is stable and continues to do better on hemodialysis. cc: Randall Appiah MD
--- NOTE | 2018-12-30 13:45 | GASTROENTEROLOGY PROGRESS NOTE ---
DATE: 12/30/2018 SUBJECTIVE: Patient is sitting in a chair. He looks much better. He is awake, alert. He states he is eating better. He has family at the bedside. OBJECTIVE: Vital Signs: Temperature 98.6 degrees, pulse 75, respirations 18, blood pressure 101/44. General: Patient is awake, alert, sitting up in chair in no acute distress. Abdomen: Soft. Positive bowel sounds. Nontender. LABORATORY: Hematology: WBC 4.62, hemoglobin 9.4, hematocrit 29.1, MCV 100.3. Chemistry: Sodium 133, potassium 4.3, chloride 96, CO2 28, BUN 29, creatinine 3.6, glucose 97. He had a hepatitis panel done that was nonreactive. ASSESSMENT AND PLAN: 1. Chronic kidney disease. Patient was transitioned from peritoneal dialysis to hemodialysis. Patient seems to be tolerating well, and he has had improvement in his status. 2. Anorexia, poor appetite, nausea. Has greatly improved. The patient states he has been able to eat better, and he is feeling much better. We had planned to proceed with EGD because of his continued issues, but that was put on hold several days ago when he was not doing well. Since symptoms have improved, we will hold off endoscopy unless needed. GI will currently sign off. Please re-consult us as needed. I have given patient our contact information to call and make an appointment to follow up as an outpatient. I believe he actually already has an appointment in January. He can keep that appointment. Further plans to be made according to his progress. I have discussed this case with Dr. Guardado. Dictated by GORDON Wong for Doug Guardado MD cc: GORDON Jacobs MD Amit V. Vora, MD
--- NOTE | 2018-12-30 13:46 | NEPHROLOGY PROGRESS NOTE ---
DATE: 12/30/2018 SUBJECTIVE: He is sitting up in the chair. Awake, alert. He ate some but not all of his breakfast. OBJECTIVE: Vital Signs: Blood pressure 104/43, heart rate 75, respirations 14, afebrile. General: No acute distress. Skin: Warm and dry. Somewhat pale. Pupils are equal. Neck: Neck veins are not distended. Heart: Regular. Lungs: Equal. No crackles. Abdomen: Soft, nontender. Bowel sounds present. Extremities: Trace edema. No clubbing or cyanosis. IMPRESSION: 1. Chronic kidney disease 5D. Hemodialysis tomorrow. 2. Malnutrition. He is eating somewhat better. Albumin 3.0 today. 3. Electrolytes/acid base acceptable. 4. Anemia. Improved following transfusion. cc: MD Randall Mccoy MD
[2018-12-30] MEDS: CLINIMIX E 4.25%-5% SOLUTION 1,000 ML IV SCH (17:54)
[2018-12-30] MEDS: REMERON PO SCH (20:48)
[2018-12-30] MEDS: LIPITOR PO SCH (20:49)
[2018-12-30] MEDS: TESSALON PO PRN (20:49)
[2018-12-30] MEDS: LUNESTA PO SCH (20:49)
[2018-12-30] MEDS: TYLENOL PO PRN (20:49)
[2018-12-31] MEDS: ULTRAM PO PRN ×2 (04:59→20:49)
[2018-12-31] MEDS: REGLAN IV SCH ×4 (04:59→23:43)
[2018-12-31 05:40] LABS: HEMATOCRIT 23.7 % (42.0-52.0); HEMOGLOBIN 7.9 g/dL (14.0-18.0); MCH 33.2 PG (27-31); MCHC 33.3 g/dL (33-37); MCV 99.6 FL (81-99); MPV 9.9 FL (7.4-10.4); RBC 2.38 XMIL (4.7-6.1); RDW 15.9 % (11.5-14.5); WBC 3.34 X1000 (4.8-10.8)
[2018-12-31] MEDS: PROTONIX PO SCH (06:05)
[2018-12-31 06:26] LABS: ALBUMIN 2.7 g/dL (3.5-5.0); CALCIUM 9.3 mg/dL (8.8-10.2); CREATININE 4.9 mg/dL (0.7-1.2); PHOSPHORUS 4.7 mg/dL (2.7-4.5); POTASSIUM 5.2 mmol/L (3.5-5.1)
[2018-12-31] MEDS ORDERED: NS 2,000 ML MISC PRN (07:05)
[2018-12-31] MEDS: TUMS EXTRA STRENGTH PO SCH ×2 (11:36→20:39)
[2018-12-31] MEDS: PLAVIX PO SCH (11:36)
[2018-12-31] MEDS: TRENTAL PO SCH (11:37)
[2018-12-31] MEDS: ROCALTROL PO SCH (11:37)
[2018-12-31] MEDS: PROSCAR PO SCH (11:37)
[2018-12-31] MEDS: SENSIPAR PO SCH (11:37)
[2018-12-31] MEDS: KLOR-CON PO SCH (11:37)
[2018-12-31] MEDS: PATIENT'S OWN MED PO SCH ×2 (11:40→11:42)
[2018-12-31] MEDS: PEPCID PO SCH ×2 (11:41→20:39)
--- NOTE | 2018-12-31 12:19 | PROGRESS NOTE ---
DATE: 12/31/2018 SUBJECTIVE: An 83-year-old pleasant white gentleman, admitted to the hospital under the care of Dr. Appiah on 12/20/2018. He is slowly deteriorating. His renal function tests on CAPD not better. Dr. Michael put vascular catheter on the right side and he is undergoing dialysis today. The patient was seen with the as well as in the dialysis center. He is very comfortable. REVIEW OF SYSTEMS: None reported. PAST MEDICAL HISTORY: Reviewed. PAST SURGICAL HISTORY: Reviewed. MEDICINES: Reviewed. ALLERGIES: Zolpidem. PHYSICAL EXAMINATION: Vital signs: Temperature is 97.8, pulse 72, blood pressure 121/63. HEENT: Within normal limits. Slightly pale. Neck: Supple. Chest: Bilateral air entry. Heart: Sounds are regular. Abdomen: Belly is soft with CAPD catheter noted. No obvious deficits. ASSESSMENT AND PLAN: 1. 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 2. Anemia. The patient did receive 2 units of packed RBC. 3. Benign prostatic hypertrophy. On Proscar. 4. Hyperlipidemia. On Lipitor. 5. Chronic kidney disease. Management as per Dr. Bronson which includes calcium carbonate, Rocaltrol, Sensipar. 6. Gastrointestinal prophylaxis with Pepcid and Reglan and Protonix. 7. Chronic insomnia. He is on Lunesta on Remeron daily. Monitor the labs. 8. Living Will is a DNR level 1. LEVEL OF DOCUMENTATION: 35 minutes. cc: MD Randall Farias MD
[2018-12-31] MEDS: SANTYL OINT TOP SCH (13:22)
[2018-12-31] MEDS: LUNESTA PO SCH (20:39)
[2018-12-31] MEDS: REMERON PO SCH (20:39)
[2018-12-31] MEDS: LIPITOR PO SCH (20:39)
[2018-12-31] MEDS: TESSALON PO PRN (20:49)
[2019-01-01] MEDS: ULTRAM PO PRN ×2 (04:41→17:39)
[2019-01-01] MEDS: REGLAN IV SCH ×4 (04:41→23:53)
[2019-01-01] MEDS: MIRALAX PO PRN (05:31)
[2019-01-01] MEDS: PROTONIX PO SCH (06:18)
[2019-01-01 07:57] LABS: HEMATOCRIT 27.4 % (42.0-52.0); HEMOGLOBIN 8.9 g/dL (14.0-18.0); MCH 32.7 PG (27-31); MCHC 32.5 g/dL (33-37); MCV 100.7 FL (81-99); MPV 9.6 FL (7.4-10.4); RBC 2.72 XMIL (4.7-6.1); RDW 16.1 % (11.5-14.5); WBC 4.14 X1000 (4.8-10.8)
[2019-01-01 08:00] LABS: ALBUMIN 3.1 g/dL (3.5-5.0); CALCIUM 9.3 mg/dL (8.8-10.2); CREATININE 4.4 mg/dL (0.7-1.2); PHOSPHORUS 3.6 mg/dL (2.7-4.5); POTASSIUM 4.7 mmol/L (3.5-5.1)
[2019-01-01] MEDS: TRENTAL PO SCH (10:00)
[2019-01-01] MEDS: TUMS EXTRA STRENGTH PO SCH ×2 (10:00→20:57)
[2019-01-01] MEDS: PLAVIX PO SCH (10:00)
[2019-01-01] MEDS: KLOR-CON PO SCH (10:00)
[2019-01-01] MEDS: PROSCAR PO SCH (10:01)
[2019-01-01] MEDS: PEPCID PO SCH ×2 (10:01→20:58)
[2019-01-01] MEDS: SENSIPAR PO SCH (10:01)
[2019-01-01] MEDS: PATIENT'S OWN MED PO SCH ×3 (10:03→10:05)
--- NOTE | 2019-01-01 12:43 | PROGRESS NOTE ---
DATE: 01/01/2019 SUBJECTIVE: The patient is a little bit down. He had a hemodialysis yesterday. REVIEW OF SYSTEMS: None reported. OBJECTIVE: Vital signs: Temperature is 98 degrees, pulse 69, blood pressure 109/52. HEENT: Within normal limits. Neck: Supple. Chest: Clear. Heart: Sounds are regular. Abdomen: Belly is soft, nontender. CAPD catheter noted. LABS: CBC: White cell count 4.1, hematocrit 27.4, platelets 98,000. Sodium 136, potassium 4.7, BUN is 25, creatinine 4.4, glucose 139. ASSESSMENT AND PLAN: 1. End-stage kidney disease, now switching to hemodialysis from CAPD 2. Anemia, stable. 3. Benign prostatic hypertrophy, on Proscar. 4. Continue chronic kidney disease management as per Dr. Bronson. 5. Living will, do not resuscitate. I discussed with the family. 6. Continue present treatment. LEVEL OF DOCUMENTATION: 35 minutes. cc: MD Randall Farias MD
[2019-01-01] MEDS: SANTYL OINT TOP SCH (13:37)
--- NOTE | 2019-01-01 18:19 | NEPHROLOGY PROGRESS NOTE ---
DATE: 01/01/2019 SUBJECTIVE: He is sitting up in bed. Family states he ate more than half of his dinner. He is still having confusion especially at nighttime. OBJECTIVE: Blood pressure 116/56, heart rate 78, respirations 16, afebrile.General: No acute distress. Skin: Warm and dry. Conjunctivae are pink. Neck: Neck veins are not distended. Heart: Regular with systolic murmur. Lungs: Equal. No crackles. Abdomen: Soft, nontender. Bowel sounds present. Extremities: With 1+ edema. No clubbing or cyanosis. IMPRESSION: 1. Chronic kidney disease 5D. He will have his next routine hemodialysis tomorrow. 2. Malnutrition. Albumin 3.1 today. Continue hemodialysis for now. 3. Electrolytes/acid base/blood pressure all in target. 4. Anemia. Below target but acceptable. No transfusion. 5. Confusion. He will probably get better once he is discharged home. cc: MD Randall Mccoy MD
[2019-01-01] MEDS: REMERON PO SCH (20:57)
[2019-01-01] MEDS: LUNESTA PO SCH (20:57)
[2019-01-01] MEDS: LIPITOR PO SCH (20:58)
[2019-01-01] MEDS: TESSALON PO PRN (21:01)
[2019-01-02] MEDS: REGLAN IV SCH ×4 (05:55→23:02)
[2019-01-02] MEDS: PROTONIX PO SCH ×2 (05:56→07:25)
[2019-01-02 06:36] LABS: HEMATOCRIT 22.2 % (42.0-52.0); HEMOGLOBIN 7.3 g/dL (14.0-18.0); MCH 34.3 PG (27-31); MCHC 32.9 g/dL (33-37); MCV 104.2 FL (81-99); MPV 9.7 FL (7.4-10.4); RBC 2.13 XMIL (4.7-6.1); RDW 15.7 % (11.5-14.5); WBC 3.15 X1000 (4.8-10.8)
[2019-01-02 06:49] LABS: ALBUMIN 2.7 g/dL (3.5-5.0); CALCIUM 9.1 mg/dL (8.8-10.2); CREATININE 5.6 mg/dL (0.7-1.2); PHOSPHORUS 4.3 mg/dL (2.7-4.5); POTASSIUM 5.8 mmol/L (3.5-5.1)
[2019-01-02] MEDS ORDERED: NS 2,000 ML MISC PRN (07:25)
--- NOTE | 2019-01-02 09:02 | PROGRESS NOTE ---
DATE: 01/02/2019 SUBJECTIVE: An 83-year-old white gentleman, known case of chronic kidney disease and chronic liver disease with cirrhosis, admitted with fall and right shoulder pain. On presentation, patient was hypotensive. The patient was getting peritoneal dialysis. The patient was not getting better. Admission history and physical, Nephrology consult, and Gastroenterology consult noted. Patient is getting hemodialysis now. The patient seems to be doing fair. He denied any chest pain or palpitations. No nausea/vomiting. The patient does have an enlarged prostate, on Proscar. No diarrhea, blood or mucus in the stool. OBJECTIVE: Vital Signs: Blood pressure 90/45, pulse 72, respirations 19, temperature 98.5 degrees. Skin: Normal turgor. HEENT: Head atraumatic, normocephalic. Bladen conjunctivae. Anicteric sclerae. Pupils reacting to light. Neck: Supple. No JVD. Lungs: Bibasilar crepitations. Heart: S1 and S2 heard. Abdomen: Soft, scaphoid. Bowel sounds present. Extremities: No cyanosis, clubbing. No acute DVT. Central Nervous System: Alert, awake able to move all 4 limbs. LABORATORY DATA: Revealed hemoglobin 7.3, hematocrit 22.2, WBC count 3.15. His BUN 33, creatinine 5.6, potassium 5.8. ASSESSMENT AND PLAN: 1. Patient is getting hemodialysis now, which should correct his potassium. Patient does have catheter of peritoneal dialysis in the belly. 2. Patient does have anemia most likely of chronic disease. We will continue monitoring hemoglobin and hematocrit. 3. Cirrhosis of the liver. 4. Chronic kidney disease, stage 5. 5. BPH. 6. Gastritis and reflux disease. 7. Hyperlipidemia. His labs and medication noted. We will continue current treatment and close observation. cc: MD Randall Carey MD
[2019-01-02] MEDS: PROSCAR PO SCH (11:58)
[2019-01-02] MEDS: SENSIPAR PO SCH (11:58)
[2019-01-02] MEDS: TUMS EXTRA STRENGTH PO SCH ×2 (11:58→20:28)
[2019-01-02] MEDS: KLOR-CON PO SCH (11:59)
[2019-01-02] MEDS: TRENTAL PO SCH (11:59)
[2019-01-02] MEDS: ROCALTROL PO SCH (11:59)
[2019-01-02] MEDS: PEPCID PO SCH ×2 (11:59→20:27)
[2019-01-02] MEDS: PLAVIX PO SCH (11:59)
[2019-01-02] MEDS: PATIENT'S OWN MED PO SCH ×2 (12:00)
[2019-01-02] MEDS: SANTYL OINT TOP SCH (12:01)
--- NOTE | 2019-01-02 13:12 | NEPHROLOGY PROGRESS NOTE ---
DATE: 01/02/2019 SUBJECTIVE: He is in dialysis currently. He slept all night by his report. He did not eat much breakfast but his states that is typical for him. OBJECTIVE: Vital Signs: Blood pressure 90/45, heart rate 72, respiration 19, afebrile. General: No acute distress. Skin: Warm and dry. Conjunctivae are pink. Neck: Neck veins are not appreciated. Heart: Regular. Lungs: Equal. No crackles. Abdomen: Soft, nontender. Normal bowel sounds. Extremities: Have trace edema. No clubbing or cyanosis. IMPRESSION: 1. Chronic kidney disease 5D. Dialysis today. Goal of 2 L ultrafiltration as blood pressure allows. 2. Hyperkalemia. Address with dialysis. 3. Malnutrition. He is eating better. 4. Anemia. Hemoglobin 7.3 today. Will repeat in the morning. If falling, he will need a transfusion before he can be discharged. cc: MD Randall cMcoy MD
[2019-01-02] MEDS: ULTRAM PO PRN (20:27)
[2019-01-02] MEDS: TESSALON PO PRN (20:28)
[2019-01-02] MEDS: LIPITOR PO SCH (20:28)
[2019-01-02] MEDS: REMERON PO SCH (20:28)
[2019-01-02] MEDS: LUNESTA PO SCH (20:29)
[2019-01-03] MEDS: PROTONIX PO SCH (06:35)
[2019-01-03] MEDS: REGLAN IV SCH ×4 (06:35→22:58)
[2019-01-03 07:48] LABS: MCH 33.6 PG (27-31); MCHC 32.1 g/dL (33-37); MCV 104.5 FL (81-99); MPV 9.7 FL (7.4-10.4); RBC 2.68 XMIL (4.7-6.1); RDW 16.1 % (11.5-14.5); WBC 4.49 X1000 (4.8-10.8)
[2019-01-03 07:57] LABS: ALBUMIN 3.2 g/dL (3.5-5.0); CALCIUM 9.1 mg/dL (8.8-10.2); PHOSPHORUS 3.1 mg/dL (2.7-4.5); POTASSIUM 5.2 mmol/L (3.5-5.1)
[2019-01-03 08:03] LABS: CREATININE 5.3 mg/dL (0.7-1.2)
--- NOTE | 2019-01-03 09:22 | PROGRESS NOTE ---
DATE: 01/03/2019 Mr. Fung is doing about the same. His appetite is still poor. He is getting dialysis. He is very drowsy, looks very weak. Vital signs are normal. His lab data reveals hemoglobin 9 g, hematocrit 28. Potassium came down from 5.8 to 5.2, BUN and creatinine are somewhat better than yesterday with BUN 23, creatinine 5.3. Urine output is low; however, he gets dialysis tomorrow. He has leg edema bilaterally on the legs. Overall condition is slightly down. We will continue with the current management, probably decide about discharge after the dialysis tomorrow. cc: Randall Appiah MD
[2019-01-03] MEDS: SENSIPAR PO SCH (09:40)
[2019-01-03] MEDS: TRENTAL PO SCH (09:40)
[2019-01-03] MEDS: PEPCID PO SCH ×2 (09:40→21:05)
[2019-01-03] MEDS: PLAVIX PO SCH (09:41)
[2019-01-03] MEDS: KLOR-CON PO SCH (09:41)
[2019-01-03] MEDS: TUMS EXTRA STRENGTH PO SCH ×2 (09:41→21:05)
[2019-01-03] MEDS: PROSCAR PO SCH (09:44)
[2019-01-03] MEDS: PATIENT'S OWN MED PO SCH ×3 (09:54→09:56)
[2019-01-03] MEDS: SANTYL OINT TOP SCH (10:59)
[2019-01-03] MEDS: TESSALON PO PRN ×2 (11:09→21:11)
--- NOTE | 2019-01-03 15:33 | NEPHROLOGY PROGRESS NOTE ---
DATE: 01/03/2019 TIME SEEN: 0720. SUBJECTIVE: Mr. Fung is resting quietly in a chair. He is sitting beside the side of the bed. States that he is feeling much better. Denies any chest pain or increased work of breathing. OBJECTIVE: Vital Signs: Temperature 97.7 degrees, blood pressure 124/53, heart rate 79, respirations are 14. He is on room air. Last recorded saturation 100%. He has had 1,480 in, 2,462 out void with dialysis assist. Labs: Sodium 139, potassium 5.2, chloride 102, CO2 28, BUN 23, creatinine 5.3, glucose 101, anion gap of 9, calcium 9.1, phosphorus 3.1, albumin is 3.2. White count 4.49, hemoglobin 9, hematocrit 28, platelet count 89,000. PHYSICAL EXAMINATION: General: This is an 83-year-old elderly male. He is resting quietly in a chair. He is in no acute distress. He appears chronically ill. Skin: Warm and dry. HEENT: Normocephalic, atraumatic. Conjunctiva is pale pink. He has NICK. Mucous membranes are dry. Neck: Supple. Trachea midline. No evidence of JVD. Cardiovascular: He is regular rate and rhythm. Slightly tachycardic. Lungs: Clear to auscultation bilaterally. Equal excursion. On room air. Abdomen: Soft, nontender. Positive bowel sounds. PD catheter remains dry and intact without redness or drainage. Genitourinary: Not inspected. Minimal void with dialysis assist. Extremities: Have 1 to 2+ lower extremity edema, right greater than left. He continues to have wound to his left small toe. This remains with eschar. He has salve to his toe area. INTEGUMENTARY: He has a tunnel dialysis catheter to the right IJ.Neurological: He is alert and oriented x3. ASSESSMENT: 1. Chronic kidney disease stage 5D. The patient is due for his routine hemodialysis treatment in the a.m. This is hemodialysis backup secondary to PD. The patient is feeling much better, with plans for dialysis in the a.m. 2. Electrolytes and acid-base balance with improvement on dialysis. 3. Anemia. Hemoglobin is now up to 9.9. The patient has had status post 2 units of transfusion of packed red blood cells. 4. Hypotension secondary to dehydration. This continues to improve. PLAN: 1. The patient is to be discharged eventually this week. He is to go home with plans for outpatient dialysis at the [facility] unit. 2. Outpatient dialysis on Wednesday, Wednesday, Wednesday planned at 6:45 a.m. We will give the patient and his family the discharge time to go to dialysis. From our perspective, he is able to be discharged per primary care. I would like to thank you for allowing us to follow with this patient. Dictated by GORDON Yee for Rasta Bronson MD Face to face encounter, data reviewed, discussed with María Macias on 01/03/19. I agree with the above assessment and plan of care. cc: GORDON Yee MD Amit V. Vora, MD MTDD
[2019-01-03] MEDS: LIPITOR PO SCH (21:05)
[2019-01-03] MEDS: REMERON PO SCH (21:05)
[2019-01-03] MEDS: LUNESTA PO SCH (21:05)
[2019-01-03] MEDS: ULTRAM PO PRN (21:11)
[2019-01-04] MEDS: TYLENOL PO PRN (03:50)
[2019-01-04] MEDS: REGLAN IV SCH (05:21)
[2019-01-04] MEDS: PROTONIX PO SCH (06:00)
[2019-01-04] MEDS ORDERED: HEPARIN IV PRN (06:06)
[2019-01-04] MEDS ORDERED: NS 2,000 ML MISC PRN (06:06)
[2019-01-04] MEDS ORDERED: TIGHT: 0.2 ML/HR FOR DIALYSIS MISC PRN (06:06)
[2019-01-04 07:31] VITALS: BP 109/45
[2019-01-04 07:56] LABS: ALBUMIN 3.1 g/dL (3.5-5.0); CALCIUM 8.8 mg/dL (8.8-10.2); CREATININE 5.8 mg/dL (0.7-1.2); PHOSPHORUS 3.9 mg/dL (2.7-4.5); POTASSIUM 5.9 mmol/L (3.5-5.1)
--- NOTE | 2019-01-04 09:09 | NEPHROLOGY PROGRESS NOTE ---
DATE: 01/04/2019 TIME SEEN: 0715. SUBJECTIVE: Mr. Fung is resting quietly in a chair beside the bed, states that he had a good night. Admits that he is eating. OBJECTIVE: His most recent vital signs, temperature is 98.5 degrees, blood pressure 90/50, heart rate 78, respirations are 14. He is on room air. Last recorded saturation 96%. He has had 360 in. He has had 0 recorded out. LABS: His sodium is 139, potassium is 5.9, chloride 102, CO2 is 26, BUN of 33, creatinine of 5.8 with a glucose of 95. Patient has an anion gap of 11. His calcium is 8.8, phosphorus is 3.9 with an albumin of 3.1. Previous hemoglobin 9.9. PHYSICAL EXAMINATION: General: This is an 83-year-old white male. He is resting quietly in bed. He appears chronically ill in no acute distress. Skin: Warm and dry. HEENT: Normocephalic, atraumatic. Conjunctivae pale pink. He has NICK. Mucous membranes are dry. Neck: Supple. Trachea midline. No evidence of JVD. Cardiovascular: He has a regular rate and rhythm. He has an S4 present. Lungs: Clear to auscultation bilaterally. Equal excursion on room air. Abdomen: Soft, nontender. Positive bowel sounds. PD catheter remains intact without tenderness present. Genitourinary: Not inspected. Minimal void with dialysis assist. Extremities: Continues with 1+ lower extremity edema. Left foot toe has not been inspected. The patient has a tunneled catheter to the right IJ. This is dry and intact. ASSESSMENT AND PLAN: 1. Chronic kidney disease stage 5D. The patient is due for his routine dialysis treatment today. We will place him on a 2 K bath. He is to dialyze for 3 and a half hours. We will attempt to pull 1 L of ultrafiltration or leave even based upon his assessment weight. 2. Electrolytes and acid-base balance with correction on dialysis. 3. Anemia. This remains low, but stable. 4. Hypotension. Again, this is secondary to dehydration. Again, we will only pull 1 L or return fluid based upon his dry weight prior to starting dialysis. PLAN: The patient is to be discharged today after his dialysis treatment. He is scheduled to go to his outpatient treatment on Wednesday, Wednesday, Wednesday at the [facility], to arrive at 0645. We will see patient on outpatient basis. We would like to thank you for allowing us to follow with this patient. Dictated by GORDON Yee for Rasta Bronson MD Face to face encounter, data reviewed, discussed with María Macias on 01/04/19. I agree with the above assessment and plan of care. cc: GORDON Yee MD Amit V. Vora, MD [facility]
--- NOTE | 2019-01-04 10:22 | DISCHARGE SUMMARY ---
ADMISSION DATE: 12/19/2018 DISCHARGE DATE: 01/04/2019 PATIENT PROFILE: Mr. Fung, who is an 83-year-old white gentleman, came to the office with dehydration, hypertension, chronic kidney disease, as well as cirrhosis and hypotension. His potassium was 2.8 at the time of admission. COURSE IN THE HOSPITAL: He had a Nephrology consultation with Dr. Bronson. He did not have any appetite and hence GI consult was made with Dr. Guardado. Reglan was started and continued. It had to some extent helped his appetite; however, he continued to go down with his peritoneal dialysis. He was transfused 1 unit of packed RBCs and his hemoglobin went down. However, his condition continued to get worse. He was being checked by Dr. Bronson on a regular bases, and Dr. Bronson decided that he would be benefitted with hemodialysis. Dr. Michael put the shunt in and hemodialysis was started and hemodialysis will be continued for a few days. However, he was somewhat drowsy and not responding. However, after the hemodialysis was started, his renal condition improved. His potassium was 5.9. However, it will be taken care of with hemodialysis. FINAL DIAGNOSES: 1. Acute on chronic renal failure. 2. Electrolyte imbalance. 3. Loss of appetite. 4. Dehydration. 5. Anemia. PLAN: We will continue to follow him. cc: Randall Appiah MD
--- NOTE | 2019-01-04 11:27 | PROGRESS NOTE ---
DATE: 01/04/2019 Mr. Fung is doing fairly well. His potassium was 5.9. However, he is getting dialysis. The patient after the dialysis will be discharged today. He will be checked by DR. Bronson, and we will also see him in about 1 month. -4 cc: Randall Appiah MD
[2019-01-04] MEDS: KLOR-CON PO SCH (13:38)
[2019-01-04] MEDS: PATIENT'S OWN MED PO SCH ×2 (13:40)
[2019-01-04] MEDS: PEPCID PO SCH (13:40)
[2019-01-04] MEDS: ROCALTROL PO SCH (13:41)
[2019-01-04] MEDS: PLAVIX PO SCH (13:41)
[2019-01-04] MEDS: PROSCAR PO SCH (13:41)
[2019-01-04] MEDS: SENSIPAR PO SCH (13:42)
[2019-01-04] MEDS: SANTYL OINT TOP SCH (13:42)
[2019-01-04] MEDS: TRENTAL PO SCH (13:42)
[2019-01-04] MEDS: TUMS EXTRA STRENGTH PO SCH (13:43)
== END 2019-01-04 12:29 | disposition home or self-care (01) | DRG 640 ==
LOC: DIRADM 10:24 → 1N 11:55
PROVIDERS: ADMIT Internal Medicine; ATTEND Internal Medicine

== ENCOUNTER 2019-01-24 15:04 | Inpatient (IN) ==
[2019-01-24] MEDS ORDERED: ZOFRAN IV PRN (17:35)
[2019-01-24] MEDS ORDERED: LEVAQUIN 250 MG/D5W 250 MG/50 ML IVPB IV ONE (18:00)
[2019-01-24] MEDS ORDERED: 1/2 NS 1,000 ML IV SCH (18:00)
[2019-01-24 18:38] LABS: BASO% 0.5 % (0.0-0.8); EOS% 2.3 % (0.0-10.0); HEMATOCRIT 23.5 % (42.0-52.0); HEMOGLOBIN 7.6 g/dL (14.0-18.0); LYMPH# 0.81 X1000 (1.2-3.4); LYMPH% 18.7 % (20.5-51.1); MCH 33.2 PG (27-31); MCHC 32.3 g/dL (33-37); MCV 102.6 FL (81-99); MONO# 0.52 X1000 (0.11-0.59); NEUT# 2.88 X1000 (1.4-6.5); NEUT% 66.5 % (42.2-75.2); PLT 85 X1000 (130-400); RBC 2.29 XMIL (4.7-6.1); RDW 16.2 % (11.5-14.5); WBC 4.33 X1000 (4.8-10.8)
[2019-01-24 18:39] LABS: BASO# 0.02 X1000 (0.0-0.2)
[2019-01-24 18:53] LABS: ALBUMIN 3.3 g/dL (3.5-5.0); CALCIUM 8.4 mg/dL (8.8-10.2); CREATININE 4.7 mg/dL (0.7-1.2); POTASSIUM 4.4 mmol/L (3.5-5.1); TOTAL BILIRUBIN 0.65 mg/dL (0.20-1.00); TOTAL PROTEIN 6.6 g/dL (6.3-8.3)
[2019-01-24] MEDS: LASIX IV SCH (20:06)
[2019-01-24] MEDS: RESTORIL PO PRN (22:42)
[2019-01-24] MEDS: DILAUDID IV PRN (22:59)
[2019-01-25] MEDS ORDERED: HEPARIN IV PRN (06:06)
[2019-01-25] MEDS ORDERED: NS 2,000 ML MISC PRN (06:06)
[2019-01-25] MEDS ORDERED: TIGHT: 0.2 ML/HR FOR DIALYSIS MISC PRN (06:06)
[2019-01-25] MEDS: LASIX IV SCH ×2 (06:19→17:44)
[2019-01-25 08:34] LABS: ALBUMIN 3.2 g/dL (3.5-5.0); CALCIUM 8.1 mg/dL (8.8-10.2); PHOSPHORUS 5.1 mg/dL (2.7-4.5); POTASSIUM 4.4 mmol/L (3.5-5.1)
[2019-01-25 08:45] LABS: CREATININE 5.6 mg/dL (0.7-1.2)
--- NOTE | 2019-01-25 08:50 | Diag Imaging Result Doc PS360 ---
EXAM: FOOT 2 VIEWS LEFT 01/25/2019 HISTORY: gangrene Lt Little toe TECHNIQUE: Left foot two views COMMENT: There is extensive arterial calcification. There is soft tissue swelling particularly over the dorsum of the foot. No evidence of acute fracture or dislocation periosteal reaction or erosion is present on these two views. IMPRESSION: Soft tissue swelling. Electronically signed by Brooks Nieto 01/25/2019 8:48 AM
--- NOTE | 2019-01-25 09:40 | PROGRESS NOTE ---
DATE: 01/25/2019 SUBJECTIVE: Mr. Fung is doing somewhat better. He has a large blister on the dorsum of the left foot which is edematous. OBJECTIVE: Lungs: Lungs are clear. Heart: Sounds are normal. : He has a severe degree of chronic renal failure and he is retaining a lot of fluid. His proBNP is extremely high. He definitely has some congestive heart failure. Overall condition is otherwise unchanged. He has gangrenous left little toe. He had flow studies in August and CT angiogram was advised. We will ask for a surgical consult, vascular consult with Dr. Michael. cc: Randall Appiah MD
--- NOTE | 2019-01-25 10:01 | HISTORY AND PHYSICAL ---
HISTORY OF PRESENT ILLNESS: Mr. Fung is an 83-year-old white gentleman who comes to the office with marked swelling of both lower extremities, more on the left side, with cellulitis on the left foot, which was red, hot, tender, and painful with gangrenous left little toe. He has a known case of chronic renal disease. He used to do the peritoneal dialysis; however, for the last 2 weeks, he has been on hemodialysis. He has many sittings on hemodialysis. He has not completed the sittings, and would prematurely stop the dialysis in 2 hours because of pain. He has also chronic liver disease. He had parathyroidectomy in the past. He had peritoneal shunt as well as Port-A-Cath done in the past. He has a nervous personality. He does not smoke or drink now, and has allergy to zolpidem. REVIEW OF SYSTEMS: Noncontributory, except for some shortness of breath and severe generalized weakness. PHYSICAL EXAMINATION: GENERAL: The patient is alert and oriented. VITAL SIGNS: Temperature normal, pulse 71 per minute, respiratory rate 20 per minute, blood pressure 100/57. HEENT: Head normocephalic. Pupils PERRLA. Fundus examination not done. HEENT examination unremarkable, except for anemia with pallor of the mucous membranes. NECK: Supple. JVP normal. There is no evidence of lymphadenopathy, thyroid enlargement. EXTREMITIES: No evidence of cyanosis or clubbing. He has anemia. He has bilateral leg edema, more on the left side with blister on the left foot. He has gangrenous left little toe. Pedal pulses are very feeble. BREASTS: Reveal gynecomastia. He has a Port-A-Cath. LUNGS: Occasional basal rales. HEART: PMI in the normal position. Heart sounds are normal. No murmur, gallop, or rub noted. ABDOMEN: Somewhat distended. He has peritoneal shunts. No guarding, rigidity, free fluid, masses, or organomegaly. Bowel sounds normal. RECTAL: Deferred. CENTRAL NERVOUS SYSTEMS: Higher functions. The patient is apprehensive. Cranial nerves normal. Motor and sensory system examination unremarkable. Deep tendon reflexes normal. Plantars downgoing. SKULL AND SPINE: Painful movements of the lumbar spine. No cerebellar signs or signs of meningeal irritation on local motor exam. SKIN: Unremarkable, except for gangrenous left little toe. IMPRESSION: Bilateral leg edema, possible congestive heart failure. The patient has renal failure as well as hepatic failure, and has severe peripheral vascular disease, especially in the left leg. PLAN: Plan to start IV Lasix, and continue dialysis. Start IV antibiotics as there is cellulitis in the left foot. cc: Randall Appiah MD
--- NOTE | 2019-01-25 11:14 | GENERAL SURGERY CONSULTATION ---
DATE: 01/25/2019 HISTORY OF PRESENT ILLNESS: Mr. Fung is an unfortunate gentleman, who has who is admitted with swelling of both lower extremities, gangrenous necrosis of his left small toe. He has significant pain in the small toe. PAST MEDICAL HISTORY: His other medical problems include CKD 5. He has a history of hypertension. He has a history of hyperparathyroidism in the past. Severe peripheral vascular disease. 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 ALLERGY: Zolpidem. SOCIAL HISTORY: Denies smoking or alcohol use. He is with an attentive . FAMILY HISTORY: Not known. REVIEW OF SYSTEMS: Pertinent in the sub systems as noted above. PHYSICAL EXAMINATION: Vital Signs: He is afebrile. Heart rate 81 blood pressure 115/58. Lungs: Sound clear. Heart: Regular rate and rhythm. Abdomen: Soft. Extremities: Femoral pulses are present. Bilateral lower extremity edema is present. Left worse than the right. His left foot is swollen more than the right. He has a blister on the dorsum of the left foot, gangrenous necrosis of the left 5th toe medially. No palpable pedal pulses are present. LABORATORY DATA: Hemoglobin 7.6, hematocrit 23, BUN 30, creatinine 5.6. 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 His MARICEL from the past shows very poor flow in the digital level on the left. We will get a CTA with runoff to see if there is anything we can do to improve his flow to his foot. He will certainly come to amputation of the 5th toe but healing may become an issue but we will get a CTA with runoff to further evaluate this. This gentleman of course carries significant risk for non operative therapy as well as operative therapy and he understands that. cc: MD Randall Lyn MD
--- NOTE | 2019-01-25 12:27 | Diag Imaging Result Doc PS360 ---
CT ANGIOGRAM AORTA W/RUNOFF - 01/25/2019 INDICATION: Ischemic necrosis left 5th toe TECHNIQUE: Axial CT images were obtained after administering intravenous contrast. Three-dimensional angiographic images were generated. COMPARISON: None FINDINGS: The lung bases are clear of infiltrate. There is advanced calcified coronary artery disease. Heart size is normal with no pericardial effusion. There is a peritoneal dialysis catheter in place. There is ascites presumably from peritoneal dialysis fluid. The big sandy kidneys are extremely atrophic and obviously nonfunctioning. Otherwise abdominal organs are grossly normal. The abdominal aorta is heavily calcified. No aneurysm. There is heavy vascular calcification of the splenic, superior and inferior mesenteric arteries. No severe stenosis. There is variant anatomy, with the splenic artery arising as a stone vessel, and the other components of the celiac artery replaced to the superior mesenteric artery. On the right side, there is scattered vascular disease of the iliac arteries but no significant stenosis. The femoral arteries are all grossly patent. There is severe stenosis of the proximal popliteal artery with concentric calcified plaque. There is about 70% narrowing. There is heavy calcification of all the trifurcation vessels. The anterior tibial artery is clearly occluded. The peroneal artery is also likely occluded. The posterior tibial artery appears grossly patent.. There is moderate bilateral pedal edema. On the left side, there is moderate scattered vascular calcification of the iliac artery systems but these are grossly patent. There is a fair amount of fluid in the left inguinal canal and left hemiscrotum. The femoral arteries are moderately calcified but grossly patent. There is severe stenosis of the proximal popliteal artery with circumferential hard calcified plaque. There is also multifocal critical stenosis with mixed plaque, and over 90% narrowing. There is over 95% narrowing at the distalmost popliteal artery. Once again, the trifurcation vessels are extremely heavily calcified. The posterior tibial artery is probably patent. The anterior tibial artery and peroneal artery are largely occluded. There is extensive calcification of the small arteries of the feet bilaterally. IMPRESSION: Advanced peripheral arterial disease, left greater than right. This exam was performed using automated exposure control, adjustment of mA or kV according to patient size, and/or use of iterative reconstruction technique Electronically signed by Omid Linda 01/25/2019 12:25 PM
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
--- NOTE | 2019-01-25 19:43 | ECHO REPORT ---
ORDER DATE: 01/25/2019 INTERPRETING PHYSICIAN: Williams Emmanuel MD PROCEDURE: 2D echocardiogram. ECHOCARDIOGRAPHIC MEASUREMENTS: 1. Interventricular septum 0.9 cm. 2. Left ventricular posterior wall 1.0 cm. 3. Diastolic diameter 4.6 cm. 4. Left atrium 4.7 cm. 5. Aorta 3.7 cm. SUMMARY OF THE 2-DIMENSIONAL IMAGIN. Mitral valve leaflets were normal. 2. There is moderate mitral annular calcification. 3. Aortic valve leaflets calcified, trileaflet. 4. Tricuspid valve was normal. 5. Pulmonic valve was normal. 6. Normal left ventricular cavity size. 7. Estimated ejection fraction of 65%. 8. There is diastolic dysfunction. 9. There is left atrial enlargement. 10. There is mild mitral regurgitation. 11. Mild tricuspid regurgitation. 12. Peak velocity across the tricuspid valve was 2.7 m/sec. 13. Pulmonary artery systolic pressure 41 mmHg. 14. Peak velocity across the aortic valve less than 2 m/sec. 15. There is no aortic stenosis or regurgitation. 16. There is aortic calcification. 17. There is no pericardial effusion or obvious intracardiac mass or thrombus seen. cc: MD Orquidea Pacheco CRNP Amit V. Vora, MD
[2019-01-25] MEDS: DILAUDID IV PRN (20:02)
[2019-01-25] MEDS: RESTORIL PO PRN (22:37)
[2019-01-26] MEDS: LASIX IV SCH ×2 (05:15→17:09)
[2019-01-26 06:02] LABS: HEMATOCRIT 22.4 % (42.0-52.0); HEMOGLOBIN 7.2 g/dL (14.0-18.0); MCH 33.3 PG (27-31); MCHC 32.1 g/dL (33-37); MCV 103.7 FL (81-99); MPV 10.3 FL (7.4-10.4); RBC 2.16 XMIL (4.7-6.1); RDW 15.9 % (11.5-14.5); WBC 3.33 X1000 (4.8-10.8)
[2019-01-26 06:03] LABS: ALBUMIN 2.9 g/dL (3.5-5.0); CALCIUM 8.7 mg/dL (8.8-10.2); PHOSPHORUS 5.3 mg/dL (2.7-4.5); POTASSIUM 4.4 mmol/L (3.5-5.1)
[2019-01-26 06:10] LABS: CREATININE 5.6 mg/dL (0.7-1.2)
[2019-01-26] MEDS ORDERED: NS 500 ML IV ONE (07:14)
--- NOTE | 2019-01-26 08:21 | Diag Imaging Result Doc PS360 ---
CHEST-2 VIEWS - 01/26/2019 INDICATION: CHF COMPARISON: 12/28/2018 FINDINGS: Stable dialysis catheter in good position. There is some trace linear atelectasis in the lateral left lung base. Otherwise no infiltrates or edema. No pneumothorax or pleural effusion. Heart size and pulmonary vascularity is normal. IMPRESSION: No acute process. Electronically signed by Omid Linda 01/26/2019 8:18 AM
--- NOTE | 2019-01-26 09:01 | NEPHROLOGY PROGRESS NOTE ---
DATE: 01/26/2019 TIME SEEN: 0710. SUBJECTIVE: Mr. Fung is sitting up in a chair. He has complaints of left foot pain. The large bleb on the upper aspect of his left foot is leaking. He still has complaints of left foot toe pain. Denies any increased work of breathing. LABORATORY DATA: Sodium 140, potassium 4.4, chloride 102, CO2 of 27, BUN 26, creatinine 5.6, glucose 101, anion gap is 11, calcium 8.7, phosphorus 5.3, albumin 2.9. White count 3.35, hemoglobin 7.2, hematocrit 22.4, with a platelet count of 85,000. Blood cultures have returned negative. OBJECTIVE: Vital Signs: Temperature 98.2 degrees, blood pressure 101/56, heart rate 75, respirations 14. He is on room air. Last recorded saturation is 100%. He has had 360 in, 0 recorded out. General: This is an 83-year-old, elderly male. He is currently resting in a chair. He appears chronically ill, in no acute distress. Skin: Warm and dry. HEENT: Normocephalic, atraumatic. Conjunctiva is pale. His mucous membranes are dry. Neck: Supple. Trachea midline. No JVD in the upright position. Cardiovascular: Regular rate and rhythm. He has a faint gallop. No systolic murmur. Lungs: Poor inspiratory effort. Clear to anterior auscultation. He is currently on room air. Abdomen: Soft, large, round, nontender. Positive bowel sounds. PD catheter remains intact. Genitourinary: Not inspected. Minimal void with assistance with dialysis. Integumentary: The patient has dialysis tunnel catheter to the right chest wall, PD catheter to the mid abdominal right lower quadrant. Left foot has a draining bleb on the anterior aspect on the top of his foot, and he has a gangrenous small left little toe. Neurological: He is alert and oriented x3. ASSESSMENT AND PLAN: 1. Chronic kidney disease stage 5D. The patient states that he was very cold yesterday. He signed off after only 2 hours on dialysis. He recognizes that he came in with fluid volume overload and hypotension. We have suggested that we attempt dialysis again today. We will place him on a 2-potassium bath. He is to dialyze for 3 hours. During this period of time, we will pull him to his outpatient dry weight. We will also transfuse 2 units of packed red blood cells for a hemoglobin of 7.2. We have spoken to the floor nurses, and they will attempt to get him the Donald Hugger to help assist with his coolness on dialysis. 2. Electrolytes and acid-base balance with correction on dialysis. 3. Anemia. Hemoglobin of 7.2. This has dropped during his stay. We will transfuse him 2 units of packed red blood cells while on dialysis. 4. Fluid volume overload. Chest x-ray is currently pending. We will attempt to pull the patient to his outpatient dry weight. Cardiology has been consulted. 5. Nonhealing left foot ulcer and necrotic left little toe. Followed by Dr. Michael. Will request wound nurse to follow and treat. I would like to thank you for allowing us to follow with this patient. Dictated by GORDON Yee for Avelina Cuello MD cc: GORDON Yee MD [facility]
--- NOTE | 2019-01-26 09:28 | PROGRESS NOTE ---
DATE: 01/26/2019 SUBJECTIVE: Mr. Fung is doing better. His fluid load is getting somewhat better. He still has a big blister on the left foot with gangrenous left little toe. Overall condition is otherwise stable. His chest x-ray is unremarkable. An echocardiogram is really unremarkable. Overall condition is stable. We will continue the current line of therapy. cc: Randall Appiah MD
[2019-01-26] MEDS ORDERED: NS 2,000 ML MISC PRN (10:04)
[2019-01-26] MEDS ORDERED: HEPARIN IV PRN (10:04)
[2019-01-26] MEDS ORDERED: TYLENOL PO ONE (15:01)
[2019-01-26] MEDS ORDERED: VANCOMYCIN 1 GM/NS 1 GM/250 ML IVPB IV ONE ×2 (15:19→17:00)
[2019-01-26] MEDS ORDERED: VANCOMYCIN 1 GM/NS 1 GM/250 ML IVPB IV SCH (17:00)
[2019-01-26] MEDS: TYLENOL PO PRN (17:09)
--- NOTE | 2019-01-26 19:59 | INFECTIOUS DISEASE CONSULT REP ---
DATE: 01/26/2019 CONCLUSION: The patient has a methicillin-resistant Staphylococcus aureus gangrenous cellulitis of the left little toe. The patient also requests to have Tylenol to take for pain. RECOMMENDATIONS: I am going to give the patient vancomycin 1 g IV now and then 1 g IV after each dialysis. Also, I have ordered Tylenol 650 mg p.o. every 8 hours p.r.n. pain which the patient has in his left foot. DISCUSSION: The patient tells me about 3 to 4 days ago that he developed swelling and erythema of his foot and also gangrenous changes of the left little toe. A culture taken from the left little toe is growing methicillin-resistant Staphylococcus aureus. The patient's laboratory studies show a CBC with a white count of 3330, hemoglobin 7.2, and platelet count 85,000. Creatinine is 5.6, GFR is 10. Liver function studies are normal except for an alkaline phosphatase of 126. PAST MEDICAL HISTORY/REVIEW OF SYSTEMS: Eyes and ears: His hearing is good. He does wear glasses for reading. Neck: No stiffness. Cardiac: No chest pain or palpitations. Gastrointestinal: No nausea, vomiting, or diarrhea. Genitourinary: The patient passes very little urine. Neurologic: No seizures. No tremor. PREVIOUS HOSPITALIZATIONS AND OPERATIONS: He has had a tunneled dialysis catheter placed in the left upper chest. He has also had a myocardial infarction and a stroke. MEDICAL DISEASES: Positive for myocardial infarction, stroke, end-stage renal disease and the patient is on dialysis. The patient also had a myocardial infarction and stroke. INFECTIOUS DISEASE HISTORY: Negative for pneumonia and UTI. FAMILY HISTORY: Positive for diabetes mellitus, hypertension and end-stage renal disease. SOCIAL HISTORY[place] . He does not have any pets. He does not smoke cigarettes, drink alcoholic beverages or abuse drugs. PHYSICAL EXAMINATION: Vital Signs: Temperature is 98 degrees, pulse 76, respirations 17, blood pressure is 119/54. Patient is 5 feet 8 inches tall, weighs 164 pounds. General: This is a somewhat ill-appearing elderly male. He is in no acute distress. Head, eyes, ears, nose, and throat: He can hear my spoken words and see near objects. He has a whitish greenish color on his tongue. The patient tells me he has been having Jell-O. Neck: No pain with movement. Lungs: Clear to auscultation. Cardiovascular: Regular heart rate. Thorax: The patient has a right- sided tunneled dialysis catheter in the upper chest. The site is not erythematous or draining. The patient has also had a myocardial infarction and stroke. Medical diseases positive for end- stage renal disease. The patient is on dialysis. The patient also has had a myocardial infarction and stroke. INFECTIOUS DISEASE HISTORY: Negative for pneumonia and urinary tract infection. FAMILY HISTORY: Positive for diabetes mellitus, hypertension and end-stage renal disease. SOCIAL HISTORY: [place] He is [place]. He is . He does not have any pets at home. He does not smoke cigarettes, drink alcoholic beverages or abuse drugs. MEDICATIONS TAKEN AT HOME: Include the following: Atorvastatin, calcitriol, Sensipar, Plavix, Pepcid, Proscar. Mirtazapine, Zofran, Protonix, Trental and Ultram. PHYSICAL EXAMINATION: Vital Signs: 98 degrees, pulse 76, respirations 17, blood pressure 119/54. The patient is 5 feet 8 inches tall, weighs 164 pounds. General: This is an ill-appearing elderly male. He is in no acute distress. Head, eyes, ears, nose, and throat: He can hear my spoken words and see near objects. He is wearing glasses. He has a whitish greenish discoloration to the tongue. Neck: No meningismus. Lungs: Clear to auscultation. Cardiovascular: Regular heart rate. Thorax: Patient has a tunneled dialysis catheter in the right upper part of the chest. The site is not red or tender. Abdomen: Soft and nontender. Neurologic: The patient is awake. He can move his extremities. There is no tremor. Extremities: The patient has left foot shows a gangrenous left little toe that is draining a small amount of fluid. The patient has a large bulla on the top of his foot. There is a slight hole in the bulla and some serous fluid was expressed from the bulla. Neurologic: The patient is awake. He can move his extremities. There is no tremor. His sensation was intact to touch. His memory as regarding his medical history, seemed to be fairly good. There is no tremor. Thank you for the consult. cc: MD Randall Neely MD
--- NOTE | 2019-01-26 20:40 | GENERAL SURGERY PROGRESS NOTE ---
DATE: 01/26/2019 SUBJECTIVE: Unfortunately Mr. Fung's CTA shows essentially no flow to his foot especially his lateral foot. I discussed with him that prognosis. I discussed with him the fact that if we can live the way we are we shoud do it, but if he cannot stand having the toe, we will take it off with the understanding that it may not heal. So I will check back with him on a daily basis. But for now, we will continue with conservative therapy. cc: MD Randall Lyn MD MTDD
[2019-01-26] MEDS: DILAUDID IV PRN (20:59)
[2019-01-26] MEDS: RESTORIL PO PRN (21:55)
[2019-01-27] MEDS: DILAUDID IV PRN ×2 (00:43→00:45)
[2019-01-27] MEDS: LASIX IV SCH ×2 (05:38→18:56)
[2019-01-27] MEDS ORDERED: NS 2,000 ML MISC PRN (07:34)
[2019-01-27] MEDS ORDERED: HEPARIN IV PRN (07:34)
[2019-01-27] MEDS ORDERED: TIGHT: 0.2 ML/HR FOR DIALYSIS MISC PRN (07:34)
--- NOTE | 2019-01-27 07:53 | INFECTIOUS DISEASE PROGRESS NO ---
DATE: 01/27/2019 PRESENT ILLNESS: The patient has methicillin-resistant Staph aureus gangrenous cellulitis of the little toe. The patient also has a large bulla on his foot. Unfortunately, the patient's arterial studies show that he has essentially no blood supply to the involved foot. MEDICATIONS: The patient is on vancomycin given after each dialysis. PHYSICAL EXAMINATION: Vital Signs: Temperature is 97.7 degrees, pulse 75, respirations 14, and blood pressure 120/56. General: This is an ill-appearing elderly male. He is in no acute distress. Head/eyes/ears/nose/throat: He can hear my spoken words, and he can see near objects. There are no white patches in his mouth. Neck: No pain with movement. Lungs: Clear to auscultation. Cardiovascular: Regular heart rate. Thorax: Patient has a tunneled dialysis catheter on the right side. The site is not swollen or erythematous. Abdomen: Soft and nontender. Extremities: The patient's left foot is swollen. There is a bulla present dorsally, and the left little toe has dry gangrene. Neurologic: Patient is alert. He can move his extremities. There is no tremor. LABORATORY AND X-RAY: As mentioned above, the radiographic study yesterday showed there was essentially no blood supply to the left foot. The patient's CBC shows a white count of 3330, hemoglobin 7.2, and platelet count 85,000. Creatinine is 5.6. GFR is 10. ASSESSMENT AND PLAN: Patient has a methicillin-resistant Staph aureus gangrenous cellulitis of the little toe, and a bulla on the top of his leg. My plan will be to treat the patient with vancomycin after dialysis for a 6 week period. As regarding to the patient's bulla, I think the best way to treat the patient's foot regarding the large bulla, I think would be to try to express all the fluid from the bulla that is possible, and then wash the foot with soap and water, and put on a Jordana as a dressing. I would suggest doing this every 12 hours. I think it would be best if an attempt is made to get the fluid out of the bulla by squeezing it. There is already an opening in the bulla. COMORBIDITIES: The patient has peripheral vascular disease and end-stage renal disease. He is on dialysis. I would plan to follow the patient in my office. I would see him back in approximately 3 weeks. cc: MD Randall Neely MD
[2019-01-27 08:28] LABS: ALBUMIN 2.9 g/dL (3.5-5.0); CALCIUM 9.2 mg/dL (8.8-10.2); CREATININE 4.5 mg/dL (0.7-1.2); PHOSPHORUS 4.3 mg/dL (2.7-4.5)
[2019-01-27] MEDS ORDERED: TYLENOL PO PRN (11:54)
[2019-01-27] MEDS ORDERED: PATIENT'S OWN MED PO PRN (11:54)
[2019-01-27] MEDS ORDERED: NORFLEX PO PRN (11:54)
[2019-01-27] MEDS ORDERED: ZOFRAN ODT PO PRN (11:54)
[2019-01-27] MEDS: TYLENOL PO PRN (12:00)
--- NOTE | 2019-01-27 12:28 | PROGRESS NOTE ---
DATE: 01/27/2019 SUBJECTIVE: Mr. Fung had MRSA out of the gangrenous area. However, it will be treated with vancomycin after each dialysis. He is in a lot of pain today. We are going to increase the pain medication. We will continue to watch him over the weekend and get his CBC and electrolytes checked in the morning. He received 2 units of packed RBC transfusion yesterday. PLAN: I want to send him to the rehab; however, on account of dialysis, he cannot go to the rehab. We will try to work out about his pain medication. cc: Randall Appiah MD
--- NOTE | 2019-01-27 13:32 | NEPHROLOGY PROGRESS NOTE ---
DATE: 01/27/2019 SUBJECTIVE: Patient is sitting up on the side of the bed. He has no complaints. OBJECTIVE: Vital Signs: Temperature 98.1 degrees, pulse 70, respiratory rate 20, blood pressure 110/52. Intake 1.4 L; output 1.1 L. General: This is an elderly gentleman sitting up alongside the bed. He is awake and alert. He is in no acute distress. HEENT: Normocephalic, atraumatic. NICK. Neck: Supple without JVD. Cardiovascular: Regular rate and rhythm without murmur or gallop. Pulmonary: Clear bilaterally. Equal excursion. Abdomen: Soft, positive bowel sounds. : Not inspected. Extremities: He has 2+ edema up to the thighs. He has a large area of cellulitis to the left anterior aspect of the foot with drainage noted. He has an area of vascular changes to the left fifth toe. Integumentary: Skin is warm and dry otherwise. LAB DATA: Sodium 140, potassium 4.0, CO2 26, creatinine. 4.5, albumin 2.9. ASSESSMENT AND PLAN: 1. Chronic kidney disease 5 D. Today is his routine dialysis day. We will dialyze on a 2 potassium bath/ultrafiltration to his dry weight, 4 hour treatment. 2. Fluid volume overload. Again, attempt to get the patient down to dry weight. 3. Cellulitis, left leg. Followed by primary and surgery. His computed tomography angiography showed no flow to his foot, and there is some discussion about removal of the toe. Plan currently is conservative therapy. Dictated by GORDON Nascimento for Rasta Bronson MD cc: MD Randall Mccoy MD
[2019-01-27] MEDS: DURAGESIC 25 MICROGM/HR PATCH TD SCH (14:06)
[2019-01-27] MEDS ORDERED: VANCOMYCIN 1 GM/NS 1 GM/250 ML IVPB IV ONE (17:00)
[2019-01-27] MEDS: TUMS EXTRA STRENGTH PO SCH (20:14)
[2019-01-27] MEDS: LUNESTA PO SCH (20:14)
[2019-01-27] MEDS: REMERON PO SCH (20:14)
[2019-01-28] MEDS: LASIX IV SCH ×2 (05:43→18:18)
[2019-01-28 07:27] LABS: ALBUMIN 2.9 g/dL (3.5-5.0); CALCIUM 8.5 mg/dL (8.8-10.2); CREATININE 4.1 mg/dL (0.7-1.2); PHOSPHORUS 4.6 mg/dL (2.7-4.5); POTASSIUM 3.8 mmol/L (3.5-5.1)
[2019-01-28] MEDS ORDERED: [UNRECOGNIZED DRUG - OTHER] PO SCH (09:00)
[2019-01-28] MEDS ORDERED: WHEY PROTEIN PO SCH (09:00)
[2019-01-28] MEDS ORDERED: AMINO ACIDS PO SCH (09:00)
[2019-01-28] MEDS: NEPHROCAPS PO SCH (09:25)
[2019-01-28] MEDS: LIPITOR PO SCH (09:25)
[2019-01-28] MEDS: TRENTAL PO SCH (09:25)
[2019-01-28] MEDS: PROTONIX PO SCH (09:26)
[2019-01-28] MEDS: PROSCAR PO SCH (09:26)
[2019-01-28] MEDS: PLAVIX PO SCH (09:26)
[2019-01-28] MEDS: TUMS EXTRA STRENGTH PO SCH ×2 (09:26→21:24)
[2019-01-28] MEDS: SENSIPAR PO SCH (09:26)
[2019-01-28] MEDS ORDERED: MIRALAX PO PRN (13:17)
--- NOTE | 2019-01-28 13:18 | PROGRESS NOTE ---
DATE: 01/28/2019 SUBJECTIVE: An 83-year-old white male, who is well known to this hospital with recurrent admissions, admitted on 01/24 with left foot dry gangrene and blister due to poor circulation. Appropriate consult was obtained and family decided not to go for amputation on medical management. Wound cultures grew MRSA on the little toe on the left side. REVIEW OF SYSTEMS: None reported. PAST MEDICAL HISTORY: Reviewed. PAST SURGICAL HISTORY: Reviewed. MEDICINES: Reviewed. ALLERGIES: Ambien. PHYSICAL EXAMINATION: Vital Signs: Temperature is 98.5 degrees, pulse 69, blood pressure is 105/55, satting 95% on room air. HEENT: Exam within normal limits. Neck: Supple. No lymphadenopathy. Chest: He has a tunnel catheter on the right side of the chest noted. Bilateral air entry. Heart: Sounds are regular. Abdomen: Belly is soft with peritoneal dialysis catheter present. Extremities: Left foot: Large blister on the dorsal area noted and the little toe had dry gangrene noted. INVESTIGATIONS: Sodium 140, potassium 3.8, chloride 100. BUN 17, creatinine 4.1. CBC 3.3, hematocrit 22, platelets 85. ASSESSMENT AND PLAN: 1. End-stage kidney disease on hemodialysis. It has been on hold until Wednesday. 2. Chronic anemia, stable. 3. Methicillin-resistant Staphylococcus aureus on intravenous vancomycin. 4. Chronic kidney disease. Management as per Dr. Bronson with Rocaltrol, calcium carbonate, Sensipar. 5. Chronic pain on fentanyl patch 25 mcg every 72 hours. 6. Gastrointestinal prophylaxis with intravenous Protonix. 7. Peripheral arterial disease in the left foot. Continue symptomatic treatment with Trental. 8. Hyperlipidemia on Lipitor. 9. Depression on Remeron. 10. Lunesta for sleep. 11. Check the labs on a daily basis. Continue present treatment. LEVEL OF DOCUMENTATION: 35 minutes. cc: MD Randall Farias MD
--- NOTE | 2019-01-28 14:04 | NEPHROLOGY PROGRESS NOTE ---
DATE: 01/28/2019 SUBJECTIVE: Patient is sitting up on the side of the bed. Stated dialysis went well yesterday and has no new issues. OBJECTIVE: Vital Signs: Temperature 98.5 degrees, pulse 69, respiratory rate 13, blood pressure 109/55. Intake 840 mL, output 1.8 L. General: Elderly gentleman sitting up on the side of the bed. Awake and alert. No acute distress. HEENT: Normocephalic, atraumatic. His conjunctivae are pink. His oral mucosa is moist. Neck: Supple. No JVD. Trachea midline. Cardiovascular: Regular rate and rhythm. No murmur or gallop. Pulmonary: Equal excursion. Clear bilaterally. Abdomen: Soft, positive bowel sounds. : Not inspected. Minimal void. Extremities: Continues with edema in bilateral lower extremities with a large area of cellulitis on left anterior aspect of the foot. Continues with vascular changes noted as before. Integumentary: Skin is warm and dry otherwise. LAB DATA: Sodium 140 potassium, 3.8, CO2 28, creatinine 4.1, calcium 8.5, phosphorus 4.6. ASSESSMENT AND PLAN: 1. Chronic kidney disease 5D. He normally dialyzes on Wednesday, Wednesday and Wednesday. His next dialysis treatment will be routinely scheduled for Wednesday. He had no issues with dialysis yesterday. 2. Fluid volume. We did make improvement and were able to get almost 2 L off on dialysis yesterday. Plan for Wednesday and dialyze with appropriate bath and fluid removal. 3. Cellulitis of left leg. Followed by primary and Surgery. Continue to plan with conservative therapy. Family states they hope to go home with home health with physical therapy at home. Dictated by GORDON Nascimento for Rasta Bronson MD cc: MD Randall Mccoy MD
[2019-01-28] MEDS: LUNESTA PO SCH (21:23)
[2019-01-28] MEDS: REMERON PO SCH (21:24)
[2019-01-28] MEDS: TYLENOL PO PRN (22:27)
[2019-01-29] MEDS: LASIX IV SCH ×2 (05:20→17:54)
[2019-01-29 07:51] LABS: ALBUMIN 2.8 g/dL (3.5-5.0); CALCIUM 9.4 mg/dL (8.8-10.2); CREATININE 5.8 mg/dL (0.7-1.2); PHOSPHORUS 5.1 mg/dL (2.7-4.5); POTASSIUM 4.1 mmol/L (3.5-5.1)
[2019-01-29] MEDS: PROTONIX PO SCH (09:07)
[2019-01-29] MEDS: NEPHROCAPS PO SCH (09:07)
[2019-01-29] MEDS: PLAVIX PO SCH (09:07)
[2019-01-29] MEDS: ROCALTROL PO SCH (09:08)
[2019-01-29] MEDS: LIPITOR PO SCH (09:08)
[2019-01-29] MEDS: TRENTAL PO SCH (09:08)
[2019-01-29] MEDS: PROSCAR PO SCH (09:08)
[2019-01-29] MEDS: SENSIPAR PO SCH (09:08)
[2019-01-29] MEDS: TUMS EXTRA STRENGTH PO SCH ×2 (09:08→21:05)
--- NOTE | 2019-01-29 14:20 | PROGRESS NOTE ---
DATE: 01/29/2019 SUBJECTIVE: The patient is sitting out of the bed, eating [employer] food. The left foot is still blistered with gangrene noted. REVIEW OF SYSTEMS: None reported. Family was at bedside. PHYSICAL EXAMINATION: Vital Signs: Temperature is 97.5 degrees, pulse is 73, blood pressure 128/71, saturating 100% on room air. HEENT: Within normal limits. Neck: Supple. No lymphadenopathy. Chest: Bilateral air entry. Heart: Heart sounds are regular. Left foot has gangrene with blister noted. LABORATORY DATA: Sodium 139, potassium 4.1, BUN 28, creatinine 5.8. ASSESSMENT AND PLAN: End-stage kidney disease, on dialysis. Left foot infection with methicillin- resistant Staphylococcus aureus, on intravenous vancomycin as per the protocol, and continue home medicines for other problems as per the chronic kidney disease and pain control. He is going for dialysis tomorrow. Dr. Appiah is going to follow up. LEVEL OF DOCUMENTATION: 25 minutes. cc: MD Randall Farias MD
[2019-01-29] MEDS: TYLENOL PO PRN (21:04)
[2019-01-29] MEDS: REMERON PO SCH (21:05)
[2019-01-29] MEDS: LUNESTA PO SCH (21:05)
[2019-01-29] MEDS: RESTORIL PO PRN (21:10)
[2019-01-30] MEDS: LASIX IV SCH ×2 (05:08→18:48)
[2019-01-30 06:03] LABS: ALBUMIN 2.8 g/dL (3.5-5.0); CALCIUM 9.3 mg/dL (8.8-10.2); POTASSIUM 4.4 mmol/L (3.5-5.1)
[2019-01-30 06:04] LABS: CREATININE 6.7 mg/dL (0.7-1.2)
[2019-01-30] MEDS ORDERED: NS 2,000 ML MISC PRN (06:18)
[2019-01-30] MEDS ORDERED: TIGHT: 0.2 ML/HR FOR DIALYSIS MISC PRN (06:18)
[2019-01-30] MEDS ORDERED: HEPARIN IV PRN (06:18)
[2019-01-30 07:04] LABS: BASO# 0.01 X1000 (0.0-0.2); BASO% 0.3 % (0.0-0.8); EOS# 0.18 X1000 (0.0-0.7); EOS% 5.3 % (0.0-10.0); HEMATOCRIT 28.8 % (42.0-52.0); HEMOGLOBIN 9.6 g/dL (14.0-18.0); LYMPH# 0.79 X1000 (1.2-3.4); LYMPH% 23.3 % (20.5-51.1); MCH 33.8 PG (27-31); MCHC 33.3 g/dL (33-37); MCV 101.4 FL (81-99); MONO% 11.8 % (1.7-9.3); MPV 10.1 FL (7.4-10.4); NEUT# 2.01 X1000 (1.4-6.5); NEUT% 59.3 % (42.2-75.2); PLT 68 X1000 (130-400); RBC 2.84 XMIL (4.7-6.1); RDW 16.4 % (11.5-14.5); WBC 3.39 X1000 (4.8-10.8)
--- NOTE | 2019-01-30 07:24 | INFECTIOUS DISEASE PROGRESS NO ---
DATE: 01/30/2019 PRESENT ILLNESS: The patient has methicillin-resistant Staphylococcus aureus gangrenous cellulitis of the left foot, little toe. The patient also has a large bulla on the foot which has been removed. MEDICATIONS: The patient receives vancomycin after each dialysis. This is day 4 of treatment with vancomycin for the methicillin-resistant Staphylococcus aureus gangrenous cellulitis. PHYSICAL EXAMINATION: Vital Signs: Temperature is 97.7 degrees, pulse 76, respirations 18, blood pressure 98/48. General: This is an ill-appearing, elderly male. He is in no acute distress. Head, Eyes, Ears, Nose, and Throat: He can hear my spoken words and see near objects. I did not notice any white coating on his tongue. Neck: No pain with movement. Lungs: Clear to auscultation. Cardiovascular: Heart rate is regular. Thorax: The patient has a tunneled dialysis catheter present on the right side and upper part of the chest. The site is not erythematous, draining, or tender. Cardiovascular: Heart rate is regular. Abdomen: Soft and nontender. Extremities: The patient's left foot still remains swollen but it is less than it had been. The bulla is no longer present but there is erythema of the foot. The left little toe has dry gangrene on it. Neurologic: The patient was sleeping but he was fully arousable also. He can move his extremities.. LAB AND X-RAY: The CBC is pending. The creatinine is 6.7. GFR is 8. ASSESSMENT AND PLAN: The patient has a methicillin-resistant Staphylococcus aureus gangrenous cellulitis of the little toe. I plan to treat the patient with vancomycin for a 6 week period. The patient, as mentioned above, has had 4 days of treatment and will require 38 more days to complete a 6-week treatment course. COMORBIDITIES: He is elderly. He, unfortunately, has peripheral vascular disease and end-stage renal disease. cc: MD Randall Neely MD
--- NOTE | 2019-01-30 09:20 | PROGRESS NOTE ---
DATE: 01/30/2019 Mr. Fung is having a lot of pain in his leg, as well as some back pain. He has gross edema. He is getting dialysis today, and they are going to take a liter and a half of fluid out. Hemoglobin is 9.6, white count is 3.39. Blood cultures have been negative. He has a large bulla on his foot, and little toe is gangrenous. He is hypotensive. Systolic blood pressure is staying in the 90s. We are going to continue with the current management on him. He has severe peripheral arterial disease. cc: Randall Appiah MD
--- NOTE | 2019-01-30 09:53 | NEPHROLOGY PROGRESS NOTE ---
DATE: 01/30/2019 SUBJECTIVE: He is denying any chest pain or increased work of breathing. States that he feels that he has been eating well. OBJECTIVE: Vital Signs: Temperature 97.7 degrees, blood pressure 98/48, heart rate 67, respirations 18. He is on room air. Last recorded saturation 97%. He has had 680 in, he has had 100 out. LABS: Sodium 138, potassium 4.4, chloride 99, CO2 26, BUN 36, creatinine 6.7, glucose 113. His anion gap is 13, calcium 9.3, phosphorus 5, albumin 2.8. White count 3.39, hemoglobin 9.6, hematocrit 28.8, with a platelet count of 68,000. PHYSICAL EXAMINATION: General: This is an 83-year-old white male who is resting quietly in bed. He appears chronically ill no acute distress. Normocephalic, atraumatic. Conjunctiva is pale pink. He has NICK. Mucous membranes are moist. Neck: Supple. Trachea midline. He has positive JVD. Cardiovascular: Regular rate and rhythm. S4 is present. Lungs: Clear to auscultation bilaterally. Equal excursion on room air. Abdomen: Soft, nontender, positive bowel sounds. PD catheter remains intact to the right mid quadrant. No redness or drainage. Genitourinary: Not inspected. Minimal urine out with dialysis assist. Extremities: Continues with 1+ lower extremity edema, left greater than right. Integumentary: Patient is warm and dry. He has an open wound to the left anterior aspect of his dorsal foot blackened area to the left little toe. This appears to have drainage on his bed and on a pad to the chair where he has been sitting up, and this has indicated that is MRSA positive. He remains on renal dosed antibiotics with isolation. Neurological: He is alert and oriented x2, and is forgetful of some recent events. ASSESSMENT AND PLAN: 1. Chronic kidney disease stage 5D. The patient is due for his routine dialysis treatment today. We will place him on a 2 K bath; he is to dialyze for 3.5 hours. We will attempt to pull patient to his outpatient dry weight. 2. Electrolytes and acid-base balance with correction on dialysis. 3. Anemia. The patient was transfused 2 units of packed red blood cells yesterday. Hemoglobin is now up to 9.6. 4. Cellulitis, left leg and left foot with blackened left toe with MRSA. This is followed by Dr. Michael, wound nurse, and the primary care. I would like to thank you for allowing us to follow with this patient. Dictated by GORDON Yee for Rasta Bronson MD Face to face encounter, data reviewed, discussed with María Macias on 01/30/19. I agree with the above assessment and plan of care. cc: GORDON Yee MD [facility] Vora, MD [facility]
[2019-01-30] MEDS: TUMS EXTRA STRENGTH PO SCH ×2 (12:24→20:52)
[2019-01-30] MEDS: PROSCAR PO SCH (12:24)
[2019-01-30] MEDS: LIPITOR PO SCH (12:25)
[2019-01-30] MEDS: TRENTAL PO SCH (12:25)
[2019-01-30] MEDS: NEPHROCAPS PO SCH (12:26)
[2019-01-30] MEDS: PLAVIX PO SCH (12:26)
[2019-01-30] MEDS: DURAGESIC 25 MICROGM/HR PATCH TD SCH (12:26)
[2019-01-30] MEDS: SENSIPAR PO SCH (12:26)
[2019-01-30] MEDS: PROTONIX PO SCH (12:26)
[2019-01-30] MEDS: SSD CREAM TOP SCH (15:21)
[2019-01-30] MEDS ORDERED: VANCOMYCIN 1 GM/NS 1 GM/250 ML IVPB IV ONE (17:00)
[2019-01-30] MEDS: REMERON PO SCH (20:51)
[2019-01-30] MEDS: LUNESTA PO SCH (20:51)
[2019-01-31] MEDS ORDERED: DILAUDID IV ONE (01:07)
[2019-01-31] MEDS: LASIX IV SCH ×2 (06:48→17:04)
[2019-01-31] MEDS ORDERED: HEPARIN IV PRN (07:44)
[2019-01-31] MEDS ORDERED: TIGHT: 0.2 ML/HR FOR DIALYSIS MISC PRN (07:44)
[2019-01-31] MEDS ORDERED: NS 2,000 ML MISC PRN (07:44)
[2019-01-31] MEDS ORDERED: ALBUMIN 25% IV PRN (09:08)
--- NOTE | 2019-01-31 10:00 | PROGRESS NOTE ---
DATE: 01/31/2019 Mr. Fung has had lots of edema. At dialysis, we started to take some fluid out. However, he became very hypotensive, and we had to stop trying to pull fluid out. As per Dr. Bronson's suggestion, IV albumin is being given. We will see the progress. Overall prognosis looks somewhat poor. His physical examination is otherwise unchanged. Vital signs are stable. This morning his blood pressure was 133/60. cc: Rnadall Appiah MD
[2019-01-31] MEDS: LIPITOR PO SCH (12:38)
[2019-01-31] MEDS: PLAVIX PO SCH (12:38)
[2019-01-31] MEDS: TRENTAL PO SCH (12:38)
[2019-01-31] MEDS: NEPHROCAPS PO SCH (12:38)
[2019-01-31] MEDS: ROCALTROL PO SCH (12:38)
[2019-01-31] MEDS: SENSIPAR PO SCH (12:38)
[2019-01-31] MEDS: PROTONIX PO SCH (12:38)
[2019-01-31] MEDS: TUMS EXTRA STRENGTH PO SCH ×2 (12:38→21:52)
[2019-01-31] MEDS: PROSCAR PO SCH (12:38)
[2019-01-31] MEDS: ULTRAM PO SCH ×2 (12:39→21:53)
[2019-01-31] MEDS ORDERED: VANCOMYCIN 1 GM/NS 1 GM/250 ML IVPB IV ONE (17:00)
[2019-01-31] MEDS: SSD CREAM TOP SCH (17:12)
--- NOTE | 2019-01-31 20:28 | NEPHROLOGY PROGRESS NOTE ---
DATE: 01/31/2019 TIME SEEN: 0720 SUBJECTIVE: He has had pain medication during the night is feeling well though he is relaxed and sleepy. OBJECTIVE: Vital Signs: Temperature 97.6 degrees, blood pressure 143/53, heart rate 69, respirations 20, he is on room air, last recorded saturation 97%. He has had 490 in, 300 out to void. LABS: Have not been drawn today with a potassium of 4.4 and hemoglobin 9.6 yesterday, we will plan for labs in the a.m. PHYSICAL EXAMINATION: This is an 83-year-old elderly white male, he is resting quietly in bed, appears chronically ill no acute distress.Skin: Warm and dry. HEENT: Normocephalic, atraumatic. Conjunctiva is pale. He has NICK. Mucous membranes are dry. Neck: Supple. Trachea midline. He has no evidence of JVD. Cardiovascular: He is regular rate and rhythm. S4 is present. Lungs: Clear to auscultation bilateral though shallow inspiration are present, remains on room air. Abdomen: Soft, large, round, nontender, positive bowel sounds. PD catheter remains intact without redness or drainage. Genitourinary: Not inspected, minimal void with dialysis assist. Extremities: The patient has 2+ lower extremity edema, left is greater than right. He does have healing open wound to the left upper aspect of his foot with a necrotic area to his left little toe, MRSA positive. He is also noted to have a blister starting on his right lower foot area. Neurological: He is alert and oriented x2. ASSESSMENT AND PLAN: 1. Chronic kidney disease stage 5D, in the context of patient's fluid volume overload and increased swelling today we will plan for dialysis to pull an extra 2 to 3 L of ultrafiltration with plans again for dialysis in the a.m. 2. Electrolytes and acid-base balance with correction on dialysis. 3. Anemia. This is low but stable. Patient was given 2 units transfused packed red blood cells yesterday. 4. Cellulitis to left leg and foot with dry gangrene left toe with methicillin- resistant Staphylococcus aureus followed by Dr. Michael. 5. Open area on the left foot and now a new vesicle to his right foot. This is followed by the wound nurse and the primary care. Like to thank you for allowing us to follow with this patient. Dictated by GORDON Yee for Rasta Bronson MD Face to face encounter, data reviewed, discussed with María Macias on01/31/19. I agree with the above assessment and plan of care. cc: GORDON Yee MD Amit V. Vora, MD [facility]
[2019-01-31] MEDS: REMERON PO SCH (21:52)
[2019-01-31] MEDS: LUNESTA PO SCH (21:54)
[2019-01-31] MEDS: DILAUDID IV PRN (22:40)
[2019-02-01] MEDS: TYLENOL PO PRN (00:47)
[2019-02-01] MEDS: DILAUDID IV PRN ×2 (01:46→04:44)
[2019-02-01 05:26] LABS: BASO# 0.01 X1000 (0.0-0.2); BASO% 0.3 % (0.0-0.8); EOS# 0.14 X1000 (0.0-0.7); EOS% 4.1 % (0.0-10.0); HEMATOCRIT 28.3 % (42.0-52.0); LYMPH# 1.07 X1000 (1.2-3.4); LYMPH% 31.5 % (20.5-51.1); MCHC 31.8 g/dL (33-37); MCV 100.7 FL (81-99); MONO# 0.36 X1000 (0.11-0.59); MONO% 10.6 % (1.7-9.3); MPV 9.8 FL (7.4-10.4); NEUT# 1.82 X1000 (1.4-6.5); NEUT% 53.5 % (42.2-75.2); PLT 64 X1000 (130-400); RBC 2.81 XMIL (4.7-6.1); RDW 16.3 % (11.5-14.5)
[2019-02-01 06:05] LABS: ALBUMIN 3.3 g/dL (3.5-5.0); CALCIUM 8.8 mg/dL (8.8-10.2); CREATININE 4.7 mg/dL (0.7-1.2); PHOSPHORUS 3.2 mg/dL (2.7-4.5); POTASSIUM 4.5 mmol/L (3.5-5.1)
[2019-02-01] MEDS: LASIX IV SCH ×2 (06:32→17:30)
--- NOTE | 2019-02-01 09:21 | PROGRESS NOTE ---
DATE: 02/01/2019 Mr. Fung is not doing that well. He still has a large amount of fluid. The blisters on the feet have bursted. However, there is some cellulitis on the right foot also. The left foot cellulitis looks worse. We could not withdraw the fluid yesterday because of the hypotension. He is still hypotensive today. He is on vancomycin, which he gets after the dialysis. Overall condition is unchanged. cc: Randall Appiah MD
--- NOTE | 2019-02-01 09:28 | INFECTIOUS DISEASE PROGRESS NO ---
DATE: 02/01/2019 PRESENT ILLNESS: The patient has a methicillin-resistant Staph aureus gangrenous cellulitis of the left foot and especially of the left toe. The patient had a large bulla on that foot, but that has been removed. MEDICATIONS: The patient receives vancomycin after each dialysis. This is day 5 of treatment with vancomycin for the patient's methicillin-resistant Staph aureus gangrenous cellulitis of the foot. PHYSICAL EXAMINATION: Vital Signs: Temperature is 98.3 degrees, pulse 67, respirations 18, blood pressure 90/50. General: This is an ill-appearing elderly male. He is slightly overweight. Head/eyes/ears/nose/throat: He can hear my spoken words and see near objects. There is no drainage coming from the nose or ears. Neck: No pain with movement. Lungs: Clear to auscultation. Cardiovascular: Heart rate is regular. Thorax: The patient has a tunneled dialysis catheter present on the right side. The catheter site is not erythematous or draining. Cardiovascular: Heart rate is regular. Abdomen: Soft and nontender. Extremities: Patient's left foot still is swollen, but the bulla is clearing up and there is less erythema. The foot on the right side has less erythema and only a small bulla on the dorsum aspect of the foot. Neurologic: Patient was lethargic today. He appeared to be able to hear my spoken words and see near objects. He does not have a tremor. LAB AND X-RAY: CBC today shows a white count of 3400, hemoglobin 9, platelet count 64,000. Creatinine is 4.7, GFR is 12. The left little toe is growing methicillin-resistant Staph aureus. There is no new radiographic study today. PLAN: My plan is to treat the period of 6 weeks with the vancomycin with the dose being given after each dialysis for 6 weeks. ASSESSMENT AND PLAN: Patient will be treated for the methicillin-resistant Staphylococcus aureus gangrenous cellulitis of the little toe and the bulla on top of it and also to a smaller extent the areas on the right foot also. My plan is to treat for a total of 6 weeks. COMORBIDITIES: Patient has peripheral vascular disease and end-stage renal disease. The plan is to get the patient home on hemodialysis, but it looks like it is not going to happen any time soon. cc: MD Randall Neely MD
[2019-02-01] MEDS: PROTONIX PO SCH (09:33)
[2019-02-01] MEDS: NEPHROCAPS PO SCH (09:33)
[2019-02-01] MEDS: SENSIPAR PO SCH (09:33)
[2019-02-01] MEDS: PROSCAR PO SCH (09:33)
[2019-02-01] MEDS: ULTRAM PO SCH ×2 (09:33→20:53)
[2019-02-01] MEDS: LIPITOR PO SCH (09:35)
[2019-02-01] MEDS: TRENTAL PO SCH (09:35)
[2019-02-01] MEDS: TUMS EXTRA STRENGTH PO SCH ×2 (09:35→20:52)
[2019-02-01] MEDS: SSD CREAM TOP SCH (09:35)
[2019-02-01] MEDS: PLAVIX PO SCH (09:35)
--- NOTE | 2019-02-01 11:34 | NEPHROLOGY PROGRESS NOTE ---
DATE: 02/01/2019 TIME SEEN: 0725. SUBJECTIVE: Mr. Fung is resting quietly in bed. His is at his bedside. He is awake and alert. Still remains slightly lethargic. LABORATORY DATA: Sodium 140, potassium 4.5, chloride 102, CO2 of 28, BUN 25, creatinine 4.7, glucose is 100, anion gap of 10, calcium 8.8, phosphorus 3.2, albumin 3.3. White count 3.4, hemoglobin 9, hematocrit 28.3, with a platelet count of 64,000. OBJECTIVE: Vital Signs: Temperature 98.3 degrees, blood pressure 90/56, heart rate 67, respirations 18. He is on room air. Last recorded saturation 96%. He has had 620 in. He has had 2 L out on dialysis yesterday. General: This is an 83-year-old white male. He is currently resting quietly in bed. He appears chronically ill. Skin: Warm and dry. HEENT: Normocephalic, atraumatic. Conjunctiva is pale. He has NICK. Mucous membranes are dry. Neck: Supple. Trachea midline. Trace JVD. Cardiovascular: Regular rate and rhythm. He has an S4. Lungs: Clear to auscultation bilaterally. Equal excursion. Shallow with inspiration on room air. Abdomen: Soft, round, nontender. PD catheter remains intact without redness or drainage. Genitourinary: Not inspected. Minimal void with dialysis assist. Extremities: The patient has 2+ extremity edema on the left, 1+ on the right. Healing wound to the upper aspect of his left foot. Continues with necrotic area to his left little toe. MRSA positive. Blister to his right foot. This is still intact. Neurological: Alert and oriented x2. ASSESSMENT AND PLAN: 1. Chronic kidney disease stage 5D. The patient was dialyzed yesterday as an extra treatment to assist with his fluid volume overload. We pulled 2 liters off. His blood pressure has remained low since. At this point, he continues with fluid volume overload, but we are unable to dialyze today. We will plan for treatment again tomorrow. 2. Electrolytes and acid-base balance with correction on dialysis. These are stable today. 3. Anemia. This is low, but stable. 4. Cellulitis to the left leg and foot with dry gangrene on the left toe with methicillin- resistant Staph aureus present, followed by Dr. Michael. He remains on renal dosed antibiotics. I would like to thank you for allowing us to follow with this patient. Dictated by GORDON Yee for Rasta Bronson MD Face to face encounter, data reviewed, discussed with María Macias on 02/01/19. I agree with the above assessment and plan of care. cc: GORDON Yee MD Amit V. Vora, MD [facility]
[2019-02-01] MEDS: REMERON PO SCH (20:52)
[2019-02-01] MEDS: LUNESTA PO SCH (20:52)
[2019-02-02] MEDS: DILAUDID IV PRN (02:24)
[2019-02-02] MEDS: LASIX IV SCH ×2 (05:36→19:01)
[2019-02-02] MEDS ORDERED: HEPARIN IV PRN (06:11)
[2019-02-02] MEDS ORDERED: NS 2,000 ML MISC PRN (06:11)
[2019-02-02] MEDS ORDERED: TIGHT: 0.2 ML/HR FOR DIALYSIS MISC PRN (06:11)
[2019-02-02] MEDS: ULTRAM PO SCH ×2 (08:40→20:57)
[2019-02-02] MEDS ORDERED: ALBUMIN 25% IV PRN (11:47)
--- NOTE | 2019-02-02 12:35 | PROGRESS NOTE ---
DATE: 02/02/2019 Mr. Fung is doing somewhat better. He is alert. Oral intake is satisfactory. Vital signs are stable. His hemoglobin was 9 g and hematocrit 28.3. White count was 3.40 yesterday. Blood pressure this morning is 107/50. He is going to get dialysis. He is on IV vancomycin for his foot infection and has significant edema. He is being cared by the wound nurse. cc: Randall Appiah MD
[2019-02-02] MEDS: PROSCAR PO SCH (14:25)
[2019-02-02] MEDS: PLAVIX PO SCH (14:25)
[2019-02-02] MEDS: NEPHROCAPS PO SCH (14:25)
[2019-02-02] MEDS: TUMS EXTRA STRENGTH PO SCH ×2 (14:25→20:56)
[2019-02-02] MEDS: SENSIPAR PO SCH (14:25)
[2019-02-02] MEDS: PROTONIX PO SCH (14:26)
[2019-02-02] MEDS: ROCALTROL PO SCH (14:26)
[2019-02-02] MEDS: TRENTAL PO SCH (14:26)
[2019-02-02] MEDS: LIPITOR PO SCH (14:26)
[2019-02-02] MEDS: SSD CREAM TOP SCH (16:32)
[2019-02-02] MEDS ORDERED: VANCOMYCIN 1 GM/NS 1 GM/250 ML IVPB IV ONE (17:00)
--- NOTE | 2019-02-02 18:19 | NEPHROLOGY PROGRESS NOTE ---
DATE: 02/02/2019 DATE SEEN: 02/02/2019. TIME SEEN: 0715. SUBJECTIVE: Mr. Fung is resting quietly in bed. His is at his bedside. He has no complaints. MOST RECENT VITAL SIGNS: His last temperature 98.1 degrees, blood pressure 105/50, heart rate is 69, respirations 18. He is on room air, last recorded saturation 97%. He has had 120 in. He has had 0 recorded out. LABORATORY DATA: Not drawn today. Patient had a previous hemoglobin of 9, previous potassium of 4.5. PHYSICAL EXAMINATION: This is an 83-year-old, elderly male, who appears chronically ill. He is in no acute distress.Skin: Warm and dry. HEENT: Normocephalic, atraumatic. Conjunctiva is pale. He has PERRL. Mucous membranes are dry. Neck: Supple. Trachea midline. No evidence of JVD. Cardiovascular: Regular rate and rhythm. He has an S4. Lungs: Clear to auscultation anteriorly. Equal excursion. He is on room air. Abdomen: Slightly distended, soft, nontender. Positive bowel sounds. PD catheter remains intact. No redness or drainage evident. Genitourinary: Not inspected. Minimal void with dialysis assist. Extremities: Continues with 2+ edema to the left, 1+ on the right. Healing wound to the upper aspect of his left foot. Necrotic left little toe. MRSA positive current blister to the right. These are all currently dressed and not inspected. Neurological: Alert and oriented x2. ASSESSMENT AND PLAN: 1. Chronic kidney disease stage 5D. We will place him on dialysis again today, to assist with his fluid volume overload. We will place him on a 2K bath, attempt to place on for 3-1/2 hours, draw 2 to 3 L of ultrafiltration. 2. Fluid volume overload. Again, with dialysis again today, to assist with his fluid volume overload. Again, attempting 2 to 3 L today. 3. Electrolytes and acid-base balance with correction on dialysis. 4. Anemia. This is low, but stable. 5. Cellulitis to the left leg and left lower foot with dry gangrene to his left 5th toe. Followed by Dr. Michael. We would like to thank you for allowing us to follow with this patient. Dictated by GORDON Yee for Rasta Bronson MD Face to face encounter, data reviewed, discussed with María Macias on 02/02/19. I agree with the above assessment and plan of care. cc: GORDON Yee MD [facility]mit V. Vora, [facility]
[2019-02-02] MEDS: REMERON PO SCH (20:57)
[2019-02-02] MEDS: LUNESTA PO SCH (20:58)
[2019-02-03] MEDS: DILAUDID IV PRN (03:44)
[2019-02-03] MEDS ORDERED: NS 2,000 ML MISC PRN (06:39)
[2019-02-03] MEDS ORDERED: HEPARIN IV PRN (06:39)
[2019-02-03] MEDS ORDERED: TIGHT: 0.2 ML/HR FOR DIALYSIS MISC PRN (06:39)
[2019-02-03] MEDS: LASIX IV SCH (06:47)
--- NOTE | 2019-02-03 12:30 | INFECTIOUS DISEASE PROGRESS NO ---
DATE: 02/03/2019 PRESENT ILLNESS: The patient has a methicillin-resistant Staph aureus gangrenous cellulitis of the left foot and especially the left little toe. The patient had a large bulla on the foot but that has been removed. The patient has a small area of cellulitis on the right foot. MEDICATIONS: This is day #8 of vancomycin being given in a dose of 1 g IV after each dialysis. PHYSICAL EXAMINATION: Vital Signs: Temperature is 98.3 degrees, pulse 87, respirations 18, blood pressure 135/62. General: This is an ill-appearing, elderly male. He is in no acute distress. He is lethargic. Head/eyes/ears/nose/throat: He does not have any drainage from his nose or ears. I did not see any white patches in his mouth. Neck: No pain when he moves his neck. Lungs: Clear to auscultation. Cardiovascular: Heart rate is regular. Thorax: The patient has a tunneled dialysis catheter on the right side. The site is not erythematous or swollen. Abdomen: Soft and nontender. Extremities: The patient has bilateral edema. There is a gangrenous little toe on the left foot and there is some erythema where the patient had his bulla. The right leg has a small area of erythema on the dorsum. Neurologic: Patient is lethargic. LAB AND X-RAY: CBC shows a white count of 3400, hemoglobin 9 and platelet count 64,000. Creatinine is 4.7. GFR is 12. There is no is no new radiographic study. ASSESSMENT AND PLAN: The patient has methicillin-resistant Staph aureus gangrenous cellulitis of the left foot. My plan is to continue vancomycin 1 g IV after each dialysis for a total of 6 weeks. COMORBIDITIES: The patient is elderly. He has end-stage renal disease and he has peripheral vascular disease. The patient also has end-stage renal disease for which he is on dialysis. cc: MD Randall Neely MD
[2019-02-03 12:39] VITALS: BP 131/59
[2019-02-03] MEDS: LIPITOR PO SCH (12:41)
[2019-02-03] MEDS: PROSCAR PO SCH (12:41)
[2019-02-03] MEDS: ULTRAM PO SCH (12:42)
[2019-02-03] MEDS: NEPHROCAPS PO SCH (12:42)
[2019-02-03] MEDS: TRENTAL PO SCH (12:42)
[2019-02-03] MEDS: PLAVIX PO SCH (12:42)
[2019-02-03] MEDS: TUMS EXTRA STRENGTH PO SCH (12:42)
[2019-02-03] MEDS: SENSIPAR PO SCH (12:42)
[2019-02-03] MEDS: PROTONIX PO SCH (12:42)
[2019-02-03] MEDS: SSD CREAM TOP SCH (12:43)
--- NOTE | 2019-02-03 13:06 | PROGRESS NOTE ---
DATE: 02/03/2019 Mr. Fung is doing better. He continues to have some leg edema. He has had dialysis today. He has had dialysis for about 3 days in a row and he will be going on with his scheduled dialysis next week. We will discharge him today. cc: Randall Appaih MD
--- NOTE | 2019-02-03 15:05 | NEPHROLOGY PROGRESS NOTE ---
DATE: 02/03/2019 SUBJECTIVE: He is currently on dialysis. Both he and his state that he has been eating well. He has been able to sit up in the chair but he is not able to bear weight. No shortness of breath. OBJECTIVE: Vital Signs: Blood pressure 103/51, heart rate 70 respiration 18, afebrile. Generally: No acute distress. Skin: Warm and dry. Conjunctivae are pink. Neck: Neck veins are not visible. Heart: Regular with a gallop. Lungs: Equal. No crackles. Abdomen: Soft, nontender. Bowel sounds present. Extremities: 2+ edema. Wounds are dressed. IMPRESSION: 1. Chronic kidney disease 5D. We will continue dialysis again today with a goal of 2 to 3 L net negative. We will continue daily treatment as he tolerates in order to optimize his volume status for the purpose of improved wound healing. 2. Electrolytes/acid base in target. 3. Anemia is below target but stable. He was transfused on the . cc: MD Randall Mccoy MD
[2019-02-03] MEDS ORDERED: VANCOMYCIN 1 GM/NS 1 GM/250 ML IVPB IV ONE (17:00)
--- NOTE | 2019-02-04 14:03 | DISCHARGE SUMMARY ---
ADMISSION DATE: 01/24/2019 DISCHARGE DATE: 02/03/2019 HOSPITAL COURSE: Mr. Fung is an 83-year-old white gentleman with known case of renal failure and hepatic cirrhosis was admitted with gross bilateral edema and cellulitis on the left foot. He had blisters with a gangrenous left 5th toe. His CBC revealed white count of 4.33, hemoglobin was 7.6. Hemoglobin went down to 7. Electrolytes were normal, BUN 26, creatinine 5.6, and that fluctuated. Echocardiogram revealed ejection fraction of 65%. There was no pericardial effusion, moderate mitral annular calcification. He had a Nephrology consult and he underwent hemodialysis on several occasions. However, during the dialysis, he became very hypotensive. He had to be given IV albumin infusion. He was also transfused 2 units of packed RBCs. He had a vascular consultation with Dr. Michael who thought that he had gangrene of the left 5th toe, but he could not be operated on account of the current status. He had cellulitis. MRSA was isolated from the wound culture and Dr. Lopez was consulted. He suggested that he would get vancomycin after dialysis. He is better. We will be discharging him today. FINAL DIAGNOSIS: 1. Cellulitis of both feet, more on the left side. 2. Gangrene of the left 5th toe. 3. Acute on chronic renal failure. 4. Gross bilateral edema. 5. Liver cirrhosis. 6. Severe anemia. 7. Methicillin resistant Staphylococcus aureus infection with cellulitis. We will discharge him. He will get IV vancomycin as per Dr. Lopez who thought that he needed vancomycin for a total of 6 weeks. cc: Randall Appiah MD
== END 2019-02-03 15:23 | disposition home or self-care (01) | DRG 299 ==
LOC: DIRADM 15:04 → EDIPHOLD 17:06 → 1N 21:49
PROVIDERS: ADMIT Internal Medicine; ATTEND Internal Medicine

== ENCOUNTER 2019-03-07 10:32 | Inpatient (IN) ==
--- NOTE | 2019-03-07 11:55 | Diag Imaging Result Doc PS360 ---
CHEST-PORTABLE - 03/07/2019 INDICATION: congestion COMPARISON: 01/26/2019 FINDINGS: Stable right dialysis catheter in good position. Lung volumes are severely low with bibasilar crowding. There is some stable chronic atelectasis in the lateral left costophrenic angle. No infiltrates or pulmonary edema. Pulmonary vascularity is top normal. IMPRESSION: Low lung volumes. Nonspecific atelectasis in the left lung base. Electronically signed by Omid Linda 03/07/2019 11:53 AM
--- NOTE | 2019-03-07 12:18 | EKG Report ---
Test Performed on : 03/07/2019 11:48:10 AM Test Reason : congestion Blood Pressure : / mmHG Vent. Rate : 075 BPM Atrial Rate : 075 BPM P-R Int : 158 ms QRS Dur : 094 ms QT Int : 434 ms P-R-T Axes : 006 -33 102 degrees QTc Int : 484 ms Normal sinus rhythm. Left axis deviation Cannot rule out Anterior infarct , age undetermined Abnormal ECG When compared with ECG of 19-DEC-2018 12:47, aberrant conduction. is no longer present Questionable change in QRS duration Unconfirmed Result
[2019-03-07 13:08] LABS: BASO# 0.01 X1000 (0.0-0.2); BASO% 0.2 % (0.0-0.8); EOS% 2.5 % (0.0-10.0); HEMATOCRIT 27.6 % (42.0-52.0); HEMOGLOBIN 8.7 g/dL (14.0-18.0); LYMPH# 0.83 X1000 (1.2-3.4); LYMPH% 20.5 % (20.5-51.1); MCH 31.4 PG (27-31); MCHC 31.5 g/dL (33-37); MCV 99.6 FL (81-99); MONO# 0.51 X1000 (0.11-0.59); MONO% 12.6 % (1.7-9.3); MPV 9.4 FL (7.4-10.4); NEUT# 2.59 X1000 (1.4-6.5); NEUT% 64.2 % (42.2-75.2); PLT 99 X1000 (130-400); RBC 2.77 XMIL (4.7-6.1); WBC 4.04 X1000 (4.8-10.8)
[2019-03-07] MEDS ORDERED: ZOFRAN IV PRN (13:22)
[2019-03-07 13:46] LABS: ALB/GLOB RATIO 1.3; ALBUMIN 3.4 g/dL (3.5-5.0); CALCIUM 8.5 mg/dL (8.8-10.2); POTASSIUM 3.5 mmol/L (3.5-5.1); TOTAL BILIRUBIN 0.63 mg/dL (0.20-1.00); TOTAL PROTEIN 6.1 g/dL (6.3-8.3)
[2019-03-07 13:47] LABS: CREATININE 5.2 mg/dL (0.7-1.2)
--- NOTE | 2019-03-07 16:32 | GENERAL SURGERY CONSULTATION ---
DATE: 03/07/2019 I know Mr. Fung from previous evaluations. He most recently was in the hospital in late January with ischemic necrosis of his small toe on the left foot. He now presents with progression of the necrosis along with some blistering of his other toes and has some ischemic necrosis of the dorsum of his foot. His past history is pertinent for CKD 5, hypertension, severe peripheral vascular disease. 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 MEDICATIONS: Listed and include Lasix, Dilaudid, Zofran, Restoril. ALLERGIES: He is allergic to zolpidem. SOCIAL HISTORY: Denies smoking or alcohol use. He is with an attentive . FAMILY HISTORY: Not known. REVIEW OF SYSTEMS: Negative any other subsystems except as noted above. PHYSICAL EXAMINATION: He is afebrile, heart rate 78, blood pressure 125/54. Bilateral breath sounds.Heart: Regular rate and rhythm. Abdomen: Soft. Extremities: Femoral pulses are present. No pedal pulses are present. He has a dry gangrenous left 5th toe with exposed distal phalanx. He has blistering of the 3rd and the 1st toe. He has some skin loss on the dorsum of his foot. ASSESSMENT: Progressive peripheral vascular disease. From our previous evaluation he has essentially no chance to heal any kind of amputation of his toes. If he had required amputation it would have to be higher up on his leg. No more trouble than this necrosis is causing him at this point I would just simply continue with conservative therapy and only if it progressed to a systemic sepsis picture would I consider a higher amputation. I think Rita is perfectly fine for treatment of the dorsum of his foot and also for the toe blisters when they drain. Thanks again for opportunity to see him. cc: MD Randall Lyn MD
[2019-03-07] MEDS: ZOSYN 3.375 GM in NS 50 ML IV SCH (17:41)
[2019-03-07] MEDS: SSD CREAM TOP SCH (17:45)
[2019-03-07] MEDS ORDERED: XANAX PO ONE (20:55)
[2019-03-08] MEDS: RESTORIL PO SCH ×2 (00:10→20:05)
[2019-03-08] MEDS: ZOSYN 3.375 GM in NS 50 ML IV SCH ×2 (00:14→05:12)
[2019-03-08] MEDS: MORPHINE IV PRN ×2 (04:21→12:25)
[2019-03-08] MEDS ORDERED: TIGHT: 0.2 ML/HR FOR DIALYSIS MISC PRN (06:32)
[2019-03-08] MEDS ORDERED: HEPARIN IV PRN (06:32)
[2019-03-08] MEDS ORDERED: NS 2,000 ML MISC PRN (06:32)
[2019-03-08] MEDS: LASIX IV SCH (08:22)
--- NOTE | 2019-03-08 09:51 | PROGRESS NOTE ---
DATE: 03/08/2019 SUBJECTIVE: Mr. Fung is admitted with renal failure, severe cellulitis on the left leg. His CBC showed hemoglobin of 8.7, white count is 4.04. Culture studies have been done. Potassium is 5.2. He was seen by Dr. Michael yesterday who suggested that the only thing he can be help with surgically is BK amputation, amputating the toes is not going to work. I am going to discuss that with his family. He is a poor risk anyway. He is also seen by Dr. Bronson. He had dialysis the day before yesterday. cc: Randall Appiah MD
--- NOTE | 2019-03-08 12:00 | HISTORY AND PHYSICAL ---
HISTORY OF PRESENT ILLNESS: Mr. Fung, who is an 83-year-old white gentleman and known case of ESRD and cirrhosis of the liver, is admitted with recurrent infection of the left foot. He has increasing cellulitis of the left foot. He was admitted for the same reason about a month ago, and was treated with IV vancomycin with each dialysis, which is not helping him. He has more swelling in the legs, and he has increasing ascites. Besides this, he has severe persistent pain with insomnia, and he is extremely weak. He was on peritoneal dialysis, which has recently been changed to hemodialysis. PAST SURGICAL HISTORY: He had peritoneal catheter. He had parathyroidectomy. He also had surgery for subarachnoid hemorrhage. INCOMPLETE REPORT -- DICTATION ENDS HERE. cc: Randall Appiah MD
--- NOTE | 2019-03-08 12:00 | HISTORY AND PHYSICAL ---
ALLERGIES: He is allergic to zolpidem. REVIEW OF SYSTEMS: Not contributory at present. He has generalized weakness and shortness of breath. MEDICATIONS: Include alprazolam and pain medications, that is Jasper 5 which has not helped him much. PHYSICAL EXAMINATION: GENERAL: He is alert and oriented. VITAL SIGNS: Revealed temperature 97.7 degrees, pulse 72 per minute, respiratory rate is 14 per minute, blood pressure 110/56. HEENT: Head normocephalic. Pupils PERRLA. Fundus examination normal. Neck supple. JVP normal. ENT examination unremarkable. There is no evidence of lymphadenopathy, thyroid enlargement. EXTREMITIES: There is bilateral gross pedal edema. He has cellulitis on both feet. However, definitely much more on the left side with a gangrenous left little toe as well as adjoining toe. The cellulitis is over the dorsum of the leg with some ulceration and blisters. BREAST EXAMINATION: Reveals gynecomastia bilaterally. CHEST: Normal inspection. LUNGS: Clear on auscultation. CARDIAC: PMI in the normal position. Heart sounds normal. No murmur, gallop, or rub noted. ABDOMEN: Nondistended except for the distention from fluid which is significant ascites. No guarding, rigidity, masses, or organomegaly noted. There is free fluid, as mentioned before. RECTAL: Examination deferred. AIR BAG CURER: Higher functions: Patient apprehensive. Cranial nerves normal. Motor and sensory system examination unremarkable. Deep tendon reflexes normal. Plantars downgoing. Skull and spine examination normal for age. No cerebellar signs or signs of meningeal irritation. LOCOMOTOR EXAMINATION: Unremarkable. SKIN EXAMINATION: Unremarkable. CLINICAL IMPRESSION: The patient has severe ascites, cellulitis of the left foot with gangrenous toe. Overall prognosis is poor. PLAN: We will get a nephrology consult as he is getting the dialysis and has volume overload. We will also get a surgical consult with Dr. Michael for followup on his leg. cc: Randall Appiah MD
[2019-03-08] MEDS: SSD CREAM TOP SCH (12:38)
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
[2019-03-08] MEDS ORDERED: VANCOMYCIN 1 GM/NS 1 GM/250 ML IVPB IV SCH ×2 (15:45)
[2019-03-08] MEDS ORDERED: ZOSYN 3.375 GM in NS 50 ML IV SCH (17:00)
--- NOTE | 2019-03-08 22:26 | INFECTIOUS DISEASE PROGRESS NO ---
DATE: 03/08/2019 PRESENT ILLNESS: The patient has left foot cellulitis and gangrene of the little toe. He also has 2 large bullae on the patient's toes of the left foot. MEDICATIONS: The patient has been receiving Zosyn. PHYSICAL EXAMINATION: Vital Signs: Temperature is 97.6 degrees, pulse 78, respirations 14, blood pressure 105/47. General: This is a chronically ill-appearing elderly male. He is in no acute distress. Head, eyes, ears, nose, and throat: He is wearing glasses. He can hear my spoken words. He does not have any white coating of his tongue. There is no drainage from his ears or nose. Neck: No meningismus. Thorax: The patient has a right-sided tunneled dialysis catheter in place. The catheter site is not red or swollen. Lungs: Clear to auscultation. Cardiovascular: Heart rate is regular. Abdomen: The patient's abdomen is protuberant. There is a catheter for peritoneal dialysis in place. Extremities: Patient has cellulitis with large bullae formation of the left foot. There is also gangrene of the left little toe. Neurologic: The patient is alert. He can move his extremities. There is no tremor. He is coherent. LABS AND X-RAYS: There is no radiographic study. The patient's CBC shows a white count of 4040, hemoglobin 8.7, and platelet count 99,000. Creatinine is 5.2. GFR is 11. Alkaline phosphatase is 145. A culture from the left foot grew methicillin-resistant Staph aureus. Culture labeled abdomen is negative. Blood cultures are pending. ASSESSMENT AND PLAN: The patient has methicillin-resistant Staph aureus cellulitis of the patient's left foot with bullae formation. I am going to discontinue Zosyn and start the patient on vancomycin a dose of 1 g IV after each dialysis. COMORBIDITIES: Include the following: End-stage renal disease. The patient is on dialysis. He also has cirrhosis of the liver. He has had a myocardial infarction and a subarachnoid hemorrhage in the past. cc: MD Randall Neely MD
[2019-03-09] MEDS: MORPHINE IV PRN ×3 (00:21→18:38)
[2019-03-09] MEDS ORDERED: NS 2,000 ML MISC PRN (06:13)
[2019-03-09] MEDS ORDERED: TIGHT: 0.2 ML/HR FOR DIALYSIS MISC PRN (06:13)
[2019-03-09] MEDS ORDERED: HEPARIN IV PRN (06:13)
[2019-03-09] MEDS: LASIX IV SCH (09:00)
--- NOTE | 2019-03-09 09:40 | PROGRESS NOTE ---
DATE: 03/09/2019 Mr. Fung is going to get dialysis today. He continues to have some volume overload in his system with blisters and increased ascites. His culture from the leg wound grew gram-positive coccus, MRSA, and we have asked for Infectious Disease consult. He has been on vancomycin after every dialysis treatment for at least 2 weeks, and it has not been helping. I am going to discuss this with Dr. Lopez. cc: Randall Appiah MD
--- NOTE | 2019-03-09 14:40 | NEPHROLOGY PROGRESS NOTE ---
DATE: 03/09/2019 Subjective: patient sitting up to chair with at bedside. Complains of not getting any rest last night due to left extremity pain. Denies any nausea, vomiting, or shortness of breath. Objective: vitals. Temperature 97.9, pulse 86, respirations 20, blood pressure 107/47, 02 sat 100% on room air. General: chronic Ill appearing elderly white male lying in bed in no acute distress. HEENT: Normocephalic, atraumatic. Trachea midline. Mucous membranes moist. Pupils equal and reactive. Skin: thin, friable. Multiple bruises in different healing stages noted to upper extremities. Neck: supple, 6 cm JVD observed sitting upright in chair. Cardiovascular: S1, S2, S4 with a gallop. Regular rate, no murmur. Respiratory: lungs clear bilaterally with equal excursion. Abdomen: soft, nontender, mildly distended. Bowel sounds present. PD catheter in place with dressing dry and intact. : non-inspected Extremities: 2+ pitting Edema to right lower extremity, trace edema to the left lower extremity with 2+ pedal pitting. Dressing in place to left heel with visible blisters on toes. Right tunneled catheter in place. Neurological: alert and oriented to person, place, and time. Labs: intake 980, output 1000. Preliminary left foot culture gram + cocci. Impression: Chronic kidney disease stage 5D. Patient had his scheduled hemodialysis treatment with a 1-L output per dialysis yesterday and will have another hemodialysis treatment today for fluid overload. Nutrition. Offer supplements throughout the day. Gram positive cocci in left foot wound culture. He has been receiving bank ofat every dialysis treatment for the last two weeks. Dr. Lopez has been consulted. Pain/insomnia. Dr. Appiah is addressing these. cc: MD Randall Mccoy MD [facility]
[2019-03-09] MEDS: XANAX PO PRN ×2 (14:57→21:11)
[2019-03-09] MEDS: SSD CREAM TOP SCH (15:58)
[2019-03-09] MEDS ORDERED: VANCOMYCIN 1 GM/NS 1 GM/250 ML IVPB IV ONE (16:00)
[2019-03-09] MEDS ORDERED: XANAX PO SCH (21:00)
[2019-03-09] MEDS: PRILOSEC PO SCH (21:11)
[2019-03-09] MEDS: RESTORIL PO SCH (21:11)
[2019-03-10] MEDS: MORPHINE IV PRN ×2 (05:04→14:47)
[2019-03-10 05:28] LABS: HEMATOCRIT 24.7 % (42.0-52.0); HEMOGLOBIN 7.9 g/dL (14.0-18.0); MCH 32.6 PG (27-31); MCV 102.1 FL (81-99); MPV 9.7 FL (7.4-10.4); RBC 2.42 XMIL (4.7-6.1); RDW 15.8 % (11.5-14.5); WBC 2.66 X1000 (4.8-10.8)
[2019-03-10 05:51] LABS: CALCIUM 9.5 mg/dL (8.8-10.2); CREATININE 4.7 mg/dL (0.7-1.2); PHOSPHORUS 6.1 mg/dL (2.7-4.5); POTASSIUM 3.5 mmol/L (3.5-5.1)
[2019-03-10] MEDS ORDERED: HEPARIN IV PRN (06:44)
[2019-03-10] MEDS ORDERED: NS 2,000 ML MISC PRN (06:44)
[2019-03-10] MEDS ORDERED: TIGHT: 0.2 ML/HR FOR DIALYSIS MISC PRN (06:44)
[2019-03-10] MEDS: PRILOSEC PO SCH ×2 (06:54→20:26)
[2019-03-10] MEDS ORDERED: PROTONIX PO SCH (07:00)
--- NOTE | 2019-03-10 08:27 | Diag Imaging Result Doc PS360 ---
FOOT 2 VIEWS LEFT - 03/10/2019 INDICATION: osteomyelitis TECHNIQUE: COMPARISON: 01/25/2019 FINDINGS: There has been decrease of the pedal edema at the dorsum of the foot. No significant soft tissue gas. No fractures or bony erosions. IMPRESSION: No evidence of osteomyelitis. Electronically signed by Omid Linda 03/10/2019 8:25 AM
[2019-03-10] MEDS: NORCO-5 PO PRN ×2 (09:29→21:45)
[2019-03-10] MEDS: ROCALTROL PO SCH (13:24)
[2019-03-10] MEDS: SENSIPAR PO SCH (13:24)
[2019-03-10] MEDS: PROSCAR PO SCH (13:24)
[2019-03-10] MEDS: TRENTAL PO SCH (13:25)
[2019-03-10] MEDS: MIRALAX PO SCH (13:25)
[2019-03-10] MEDS: TUMS PO SCH (13:25)
[2019-03-10] MEDS: LASIX IV SCH (13:25)
[2019-03-10] MEDS: SSD CREAM TOP SCH (13:27)
--- NOTE | 2019-03-10 13:43 | INFECTIOUS DISEASE PROGRESS NO ---
DATE: 03/10/2019 PRESENT ILLNESS: The patient has methicillin-resistant Staph aureus left foot cellulitis with gangrene of the little toe. The patient had 2 large bullae but these have cleared. MEDICATIONS: The patient is getting vancomycin after each dialysis. PHYSICAL EXAMINATION: Vital Signs: Temperature is 97.9 degrees, pulse 68, respirations 20, blood pressure 88/42. General: This is a chronically ill-appearing elderly male. He is in no acute distress. Head, eyes, ears, nose, and throat: He can hear my spoken words and see near objects. He does not have any white patches in his mouth. Neck: No pain with movement. Thorax: Patient has a right-sided tunneled dialysis catheter. There is no purulent drainage or erythema. Lungs: Clear to auscultation. Cardiovascular: Regular heart rate. Abdomen: Somewhat protuberant. There is a catheter coming from the abdomen for the patient to use for peritoneal dialysis. Extremities: The patient has cellulitis of the left foot. The large bullae he had yesterday are gone now. The foot does not look quite as erythematous as it did yesterday. The little toe on the left foot has dry gangrene. Neurologic: Patient is alert. He can move his extremities. He talks in a coherent fashion. LAB AND X-RAY: The patient's culture from the left foot grew methicillin-resistant Staph aureus. The patient's CBC shows a white count of 2660, hemoglobin 7.9, and platelet count 81,000. Creatinine is 4.7. GFR is 12. ASSESSMENT AND PLAN: Patient has methicillin-resistant Staph aureus of his left foot. This appears to be getting better. My plan would be to continue vancomycin after each dialysis. I do not see where some specific radiographic study has been done on the left foot, so I think I will go ahead and order a triple phase bone scan on the left foot to see if the patient has osteomyelitis or not. COMORBIDITIES: The patient's comorbidities include end-stage renal disease for which the patient is on dialysis. The patient has cirrhosis of the liver and previously he has had a myocardial infarction and subarachnoid hemorrhage. cc: MD Randall Neely MD
[2019-03-10] MEDS: DIFLUCAN PO SCH (13:53)
--- NOTE | 2019-03-10 14:03 | PROGRESS NOTE ---
DATE: 03/10/2019 SUBJECTIVE: Mr. Fung has Staph aureus isolated from the wound from the leg, and he also had Edie albicans isolated from abdominal cultures. We are going to put him on Diflucan. He is already on IV vancomycin. He is getting dialysis today. Overall condition is unchanged. He is getting wound care on a daily basis. Will continue the current management. cc: Randall Appiah MD
--- NOTE | 2019-03-10 14:12 | Diag Imaging Result Doc PS360 ---
3 PHASE BONE SCAN - 03/10/2019 INDICATION: Left foot osteomyelitis TECHNIQUE: Three phase bone scan of the feet. 28.4 mCi of MDP was administered. COMPARISON: Foot x-rays from earlier today FINDINGS: There is normal perfusion, blood pool phase, and delayed phase uptake throughout the feet bilaterally. No abnormal soft tissue or skeletal uptake. IMPRESSION: Negative exam. Electronically signed by Omid Linda 03/10/2019 2:10 PM
--- NOTE | 2019-03-10 15:56 | NEPHROLOGY PROGRESS NOTE ---
DATE: 03/10/2019 SUBJECTIVE: He states he slept much better last night. Pain control improved. OBJECTIVE: Vital signs: Blood pressure 112/56, heart rate 83, respirations 18, afebrile. General: No acute distress. Skin: Warm and dry. Neck: Veins are not appreciated. Heart: Regular with S4. Lungs: Equal. No crackles. Abdomen: Soft. Nontender. Bowel sounds present. Extremities: 1+ edema. No clubbing or cyanosis. Improved. IMPRESSION: Chronic kidney disease 5d. He will have his routine dialysis again today. We continue to challenge his dry weight. 3K bath today. No other changes. cc: MD Randall Mccoy MD
[2019-03-10] MEDS ORDERED: VANCOMYCIN 1 GM/NS 1 GM/250 ML IVPB IV ONE (17:00)
[2019-03-10] MEDS: RESTORIL PO SCH (20:26)
[2019-03-10] MEDS: XANAX PO PRN (20:26)
[2019-03-11] MEDS: MORPHINE IV PRN (00:59)
[2019-03-11] MEDS: PRILOSEC PO SCH ×2 (06:12→21:10)
[2019-03-11] MEDS: MIRALAX PO SCH (08:53)
[2019-03-11] MEDS: DIFLUCAN PO SCH (08:53)
[2019-03-11] MEDS: LASIX IV SCH (08:53)
[2019-03-11] MEDS: SENSIPAR PO SCH (08:54)
[2019-03-11] MEDS: PROSCAR PO SCH (08:54)
[2019-03-11] MEDS: TRENTAL PO SCH (08:54)
[2019-03-11] MEDS: TUMS PO SCH (08:54)
[2019-03-11] MEDS: SSD CREAM TOP SCH (08:55)
[2019-03-11] MEDS: NORCO-5 PO PRN (12:28)
--- NOTE | 2019-03-11 17:33 | PROGRESS NOTE ---
DATE: 03/11/2019 SUBJECTIVE: An 83-year-old white gentleman is well known to this hospital from the previous admissions, was readmitted by Dr. Appiah on 03/08/2019 basically for left foot cellulitis and impending gangrene. He is well known for the Dr. Bronson for ongoing dialysis. He is using hemodialysis versus peritoneal dialysis. REVIEW OF SYSTEMS: Left foot has a lot of drainage, not willing to go for amputation. The patient was seen by Dr. Myles Lopez. PAST MEDICAL HISTORY: Reviewed. PAST SURGICAL HISTORY: Reviewed. MEDICINES: Reviewed. ALLERGIES: Zolpidem. PHYSICAL EXAMINATION: Temperature is 97.7 degrees, pulse 76, blood pressure is 126/54.HEENT: Slightly pale. No jaundice. Neck: Supple. Chest: Bilateral air entry. Tunnel catheter on the right side of the chest noted. Distant heart sounds. Belly soft and CAPD catheter also present. Left foot has dressing with cellulitis drainage and 5th toe has shown dry gangrene. No obvious deficits. INVESTIGATIONS: Yesterday hemoglobin 7.9, hematocrit 24, platelets 81,000, white cell 2.6. Sodium 143, potassium 3.5, BUN 17, creatinine 4.7, albumin 3.0. Wound cultures grew staphylococcus aureus which is MRSA and blood cultures are negative. ASSESSMENT AND PLAN: 1. Pancytopenia, chronic anemia, end-stage kidney disease. 2. Peripheral artery disease. 3. Left foot cellulitis with impending gangrene. Continue on salvage treatment. Other options also entertained. Dr. Bronson is going to maintain the hemodialysis and currently patient is receiving vancomycin after dialysis for the methicillin-resistant Staphylococcus aureus infection and also Diflucan for Edie. Currently stable. Continue present treatment. LEVEL OF DOCUMENTATION: 25 minutes. cc: MD Randall Farias MD
[2019-03-11] MEDS: XANAX PO PRN (21:10)
[2019-03-11] MEDS: RESTORIL PO SCH (21:10)
[2019-03-12] MEDS: NORCO-5 PO PRN (08:00)
[2019-03-12] MEDS: PRILOSEC PO SCH ×2 (08:00→20:23)
[2019-03-12] MEDS: SENSIPAR PO SCH (08:01)
[2019-03-12] MEDS: TUMS PO SCH (08:01)
[2019-03-12] MEDS: DIFLUCAN PO SCH (08:01)
[2019-03-12] MEDS: PROSCAR PO SCH (08:02)
[2019-03-12] MEDS: LASIX IV SCH (08:02)
[2019-03-12] MEDS: TRENTAL PO SCH (08:03)
[2019-03-12] MEDS: MIRALAX PO SCH (08:36)
[2019-03-12] MEDS: MORPHINE IV PRN (12:15)
[2019-03-12] MEDS: SSD CREAM TOP SCH (12:23)
--- NOTE | 2019-03-12 15:16 | PROGRESS NOTE ---
DATE: 03/12/2019 SUBJECTIVE: The patient is stable. No complaints. Dr. Lopez did a x-ray of left foot on Wednesday. Patient's wants know the results, and he is due for dialysis tomorrow. PHYSICAL EXAMINATION: Vitals: Temperature is 97.9 degrees. Pulse is 77. Blood pressure is 121/55, 100% on room air. Musculoskeletal: Left foot cellulitis with dry gangrene on the 5th toe. The rest of the exam is no change. INVESTIGATIONS: None reported. ASSESSMENT AND PLAN: 1. Left foot cellulitis with impending gangrene with underlying peripheral arterial disease. Family wants to continue IV antibiotics. Currently patient is receiving IV vancomycin for methicillin-resistant Staphylococcus aureus. 2. X-ray of left foot. No evidence of osteomyelitis. Calcified vessels noted. Peripheral arterial disease, on Trental. 3. Continue treatment for chronic kidney disease. The patient is getting hemodialysis in the morning, and Dr. Appiah is going to follow up. LEVEL OF DOCUMENTATION: 25 minutes. cc: MD Randall Farias MD
[2019-03-12] MEDS: RESTORIL PO SCH (20:23)
[2019-03-12] MEDS: XANAX PO PRN (20:23)
[2019-03-13] MEDS: PRILOSEC PO SCH (06:10)
[2019-03-13] MEDS: NORCO-5 PO PRN (06:10)
[2019-03-13] MEDS ORDERED: HEPARIN IV PRN (06:13)
[2019-03-13] MEDS ORDERED: NS 2,000 ML MISC PRN (06:13)
[2019-03-13] MEDS ORDERED: TIGHT: 0.2 ML/HR FOR DIALYSIS MISC PRN (06:13)
[2019-03-13 08:38] VITALS: BP 117/54
--- NOTE | 2019-03-13 09:02 | INFECTIOUS DISEASE PROGRESS NO ---
DATE: 03/13/2019 PRESENT ILLNESS: The patient has methicillin-resistant Staph aureus left foot cellulitis with gangrene of the little toe. The patient also grew Edie albicans from the peritoneal dialysis catheter site. MEDICATIONS: The patient is getting vancomycin after each dialysis for his foot cellulitis, and the patient also is taking p.o. fluconazole for the Edie infection of the peritoneal dialysis catheter site. PHYSICAL EXAMINATION: Vital Signs: Temperature is 97.9 degrees, pulse 73, respirations 18, blood pressure 108/52. General: This is an ill-appearing elderly male. He is in no acute distress. Head, eyes, ears, nose, and throat: He can hear my spoken words and see near objects. I do not see any white patches on his tongue. Neck: No pain with movement. Thorax: The patient has a right-sided tunneled dialysis catheter in place. There is no purulent drainage or erythema at the entrance site. Lungs: Clear to auscultation. Cardiovascular: Regular heart rate. Abdomen: Soft and nontender. There is a catheter for peritoneal dialysis, and there was erythema around it, but the erythema is getting much less. Extremities: The patient has cellulitis of the left foot; it is erythematous, and there is dry gangrene of the little toe. Neurologic: The patient is alert. He can move his extremities. He talks in a coherent fashion. DIAGNOSTIC STUDIES: X-ray of the foot and bone scan show no osteomyelitis. CBC shows a white count of 2660, hemoglobin 7.9, and platelet count of 81,000. Creatinine is 4.7. GFR is 12. ASSESSMENT AND PLAN: Patient has methicillin-resistant Staph aureus of his left foot with dry gangrene of the little toe. The patient has a Edie albicans infected peritoneal dialysis catheter. The area which had the infection, namely that where there was erythema around the catheter site is clearing up very well. My plan is to continue both vancomycin and fluconazole for 2 weeks, and I will have the patient check back in my office in 2 weeks. cc: MD Randall Neely MD
--- NOTE | 2019-03-13 09:42 | PROGRESS NOTE ---
DATE: 03/13/2019 SUBJECTIVE: Mr. Fung is feeling better. I discussed with Dr. Lopez today, and we are going to discharge him. We will give him Diflucan 200 mg daily for 7 days, and he will get vancomycin with every dialysis treatment. We will discharge him today. cc: Randall Appiah MD
[2019-03-13] MEDS ORDERED: ALBUMIN 25% IV ONE (09:51)
[2019-03-13] MEDS ORDERED: DIFLUCAN PO SCH (11:15)
--- NOTE | 2019-03-13 11:27 | NEPHROLOGY PROGRESS NOTE ---
DATE: 03/13/2019 Subjective: Lying in bed awake. Voices not being able to eat. Objective: vitals. Temperature 97.6, pulse 76, respirations 18, blood pressure 117/54, O2 sat 100% on room air. General: chronic Ill appearing elderly white male lying in bed in no acute distress. HEENT: Normocephalic, atraumatic. Trachea midline. Mucous membranes moist. Pupils equal and reactive. Skin: thin, friable. Multiple bruises in different healing stages noted to upper extremities. Neck: supple, no JVD observed. Cardiovascular: S1, S2. Regular rate, no murmur. Respiratory: lungs clear bilaterally with equal excursion. Abdomen: soft, nontender, mildly distended. Bowel sounds present. PD catheter in place with dressing dry and intact. : non-inspected Extremities: 1+ pitting edema to bilateral lower extremities. Right tunneled catheter in place. Vesicles resolved on toes on left foot. Necrotic fifth toe. Neurological: alert and oriented to person, place, and time. Labs: intake 460, output zero Impression: 1. Chronic kidney disease stage 5D. He will receive his routine hemodialysis today and possibly discharge after. We will follow him in clinic. 2. Nutrition. Offer supplements throughout the day. 3. Medications reviewed. No changes. 4. Cellulitis. I have arranged for him to have 2 weeks of Vancomycin after discharge. cc: MD Randall Mccoy MD MTDD
[2019-03-13] MEDS: SENSIPAR PO SCH (12:47)
[2019-03-13] MEDS: PROSCAR PO SCH (12:47)
[2019-03-13] MEDS: ROCALTROL PO SCH (12:47)
[2019-03-13] MEDS: TUMS PO SCH (12:47)
[2019-03-13] MEDS: MIRALAX PO SCH (12:48)
[2019-03-13] MEDS: LASIX IV SCH (12:48)
[2019-03-13] MEDS: TRENTAL PO SCH (12:48)
[2019-03-13] MEDS: SSD CREAM TOP SCH (12:55)
[2019-03-13] MEDS ORDERED: VANCOMYCIN 1 GM/NS 1 GM/250 ML IVPB IV ONE (17:00)
--- NOTE | 2019-03-15 04:18 | DISCHARGE SUMMARY ---
ADMISSION DATE: 03/07/2019 DISCHARGE DATE: 03/13/2019 HISTORY: Mr. Fung with a known case of end-stage renal failure as well as liver cirrhosis was admitted with cellulitis in the left foot with severe venous congestion and hypervolemia. LABORATORY DATA: In the hospital chest x-ray revealed low lung volumes, nonspecific atelectasis in the left base. Lab data had revealed anemia, hemoglobin was 7.9. His potassium was 3.5, BUN was 17, creatinine was 4.7. Alkaline phosphatase was 145, total protein 6.1, albumin was 3, which is low. X-ray of the foot was negative for osteomyelitis; however, nuclear bone scan was done and it was a negative exam. He was put on dialysis. Initially we had started Zosyn overall until we learned about the MRSA in the foot, we decided about giving IV vancomycin with the help of Dr. Lopez. Dr. Michael was consulted, he suggested that amputation or surgery on the foot is not going to help him at this time and he needed amputation below-knee or above-knee and the patient refused. Nephrology consult was made, and he was given hemodialysis every other day under the direction of Dr. Bronson. He continued to improve, he had some days of insomnia and a lot of pain. He is given Ativan 0.5 mg with dialysis and 1 mg at bedtime. He was also given Diflucan 200 mg daily prescription for 7 days, and he will be getting IV vancomycin after dialysis. He will be seen by me in the office in about 10 days. FINAL DIAGNOSES: Cellulitis of left foot with gangrene of the left little toe, severe peripheral vascular disease, end-stage renal failure, MRSA infection, liver cirrhosis. Overall prognosis is poor. Her family apparently is aware of it. cc: Randall Appiah MD
== END 2019-03-13 13:37 | disposition home health service (06) | DRG 602 ==
LOC: DIRADM 10:32 → EDIPHOLD 10:43 → 1N 14:33
PROVIDERS: ADMIT Internal Medicine; ATTEND Internal Medicine

== ENCOUNTER 2019-03-28 13:55 | Inpatient (IN) ==
[2019-03-28] MEDS ORDERED: ZOFRAN IV PRN (17:26)
[2019-03-28] MEDS ORDERED: VANCOMYCIN 1 GM/NS 1 GM/250 ML IVPB IV ONE (18:00)
[2019-03-28] MEDS ORDERED: MIRALAX PO PRN (18:29)
[2019-03-28] MEDS: NORCO-10 PO PRN (18:47)
--- NOTE | 2019-03-28 18:52 | Diag Imaging Result Doc PS360 ---
EXAM: CHEST-2 VIEWS INDICATION: SOB TECHNIQUE: 2 views COMPARISON: 03/07/2019 FINDINGS: There is a stable right Vas-Cath. There is stable mild chronic atelectasis at the left lung base. The lungs are grossly clear, otherwise. There is no discrete pleural fluid collection or pneumothorax. The cardiomediastinal silhouette and central vasculature are grossly unremarkable. IMPRESSION: Stable chronic left basilar atelectasis. No definite acute chest pathology by plain radiograph. Electronically signed by Quincy Heart 03/28/2019 6:49 PM
[2019-03-28 18:58] LABS: BASO# 0.02 X1000 (0.0-0.2); BASO% 0.3 % (0.0-0.8); EOS# 0.08 X1000 (0.0-0.7); EOS% 1.3 % (0.0-10.0); HEMATOCRIT 26.1 % (42.0-52.0); HEMOGLOBIN 8.4 g/dL (14.0-18.0); IMM GRAN# 0.02 X1000 (0.0-0.04); IMM GRAN% 0.3 % (0.0-0.5); LYMPH# 1.05 X1000 (1.2-3.4); MCH 32.4 PG (27-31); MCHC 32.2 g/dL (33-37); MCV 100.8 FL (81-99); MONO% 11.3 % (1.7-9.3); MPV 8.9 FL (7.4-10.4); NEUT% 69.8 % (42.2-75.2); PLT 134 X1000 (130-400); RBC 2.59 XMIL (4.7-6.1); RDW 16.2 % (11.5-14.5); WBC 6.17 X1000 (4.8-10.8)
[2019-03-28 19:20] LABS: ALB/GLOB RATIO 1.1; ALBUMIN 3.1 g/dL (3.5-5.0); CALCIUM 8.2 mg/dL (8.8-10.2); POTASSIUM 3.3 mmol/L (3.5-5.1); TOTAL BILIRUBIN 0.66 mg/dL (0.20-1.00)
[2019-03-28 19:28] LABS: CREATININE 5.2 mg/dL (0.7-1.2)
[2019-03-28] MEDS: XANAX PO SCH (23:34)
[2019-03-28] MEDS: NORCO-5 PO SCH (23:34)
[2019-03-28] MEDS: PROTONIX PO SCH (23:34)
[2019-03-29] MEDS: NORCO-10 PO PRN ×2 (07:32→20:00)
[2019-03-29] MEDS ORDERED: VANCOMYCIN 1 GM/NS 1 GM/250 ML IVPB IV SCH (07:45)
[2019-03-29] MEDS ORDERED: MAXIPIME 1 GM in NS 50 ML IV SCH ×2 (07:45→08:30)
--- NOTE | 2019-03-29 07:49 | EKG Report ---
Test Performed on : 03/29/2019 07:34:44 AM Test Reason : SOB Blood Pressure : / mmHG Vent. Rate : 072 BPM Atrial Rate : 072 BPM P-R Int : 154 ms QRS Dur : 098 ms QT Int : 450 ms P-R-T Axes : 043 -38 125 degrees QTc Int : 492 ms Normal sinus rhythm. Left axis deviation Low voltage QRS Nonspecific ST and T wave abnormality Prolonged QT Abnormal ECG When compared with ECG of 07-MAR-2019 11:48, No significant change was found Confirmed by Gus HERRERA, P.J.M ([id number]) on 03/29/2019 3:12:49 PM
[2019-03-29] MEDS: NORCO-5 PO SCH ×3 (07:57→22:37)
[2019-03-29] MEDS: PROTONIX PO SCH ×3 (07:58→22:18)
[2019-03-29] MEDS: DIFLUCAN PO SCH ×2 (07:58→08:43)
[2019-03-29] MEDS: PROSCAR PO SCH ×2 (07:58→08:46)
[2019-03-29] MEDS: NEPHRO-VITE PO SCH ×2 (07:58→08:44)
[2019-03-29] MEDS ORDERED: CUBICIN 500 MG in NS 100 ML IV SCH (08:00)
[2019-03-29] MEDS: TUMS PO SCH ×3 (08:02→16:05)
[2019-03-29] MEDS: SENSIPAR PO SCH (08:02)
[2019-03-29] MEDS: PATIENT'S OWN MED PO SCH (08:45)
[2019-03-29] MEDS ORDERED: SSD CREAM TOP SCH (09:00)
[2019-03-29] MEDS ORDERED: TRENTAL PO SCH (09:00)
--- NOTE | 2019-03-29 09:24 | GENERAL SURGERY CONSULTATION ---
DATE: 03/29/2019 HISTORY: Mr. Fung is known to me from a previous hospitalization for an ischemic left foot. He is a pleasant gentleman that unfortunately has severe peripheral vascular disease. I saw him last in early March when he was admitted for ischemic foot, and we have known that his foot would not heal and he would come to this and now he is admitted with progressive pain and ulceration of his foot, and he is ready for amputation. PAST HISTORY: His past history is pertinent for end-stage renal disease on dialysis. He has had a previous parathyroidectomy, a PD catheter placement, aneurysm surgery on his brain, and tunnel catheter placement. His. MEDICATIONS: Are listed. ALLERGIES: He has an allergy is Zolpidem. SOCIAL HISTORY: He is and has an attentive . Denies smoking, alcohol use, or illicit drug use. FAMILY HISTORY: Not known. REVIEW OF SYSTEMS: Negative in all of the subsystems except as noted above. PHYSICAL EXAMINATION: Vital Signs: He is afebrile. Heart rate is 69, respiratory rate 16, blood pressure 107/49. Lungs: Bilateral breath sounds. Heart: Regular rate and rhythm. Abdomen: Soft. Extremities: Femoral pulses are present. He has multiple ulcerations of his foot on the left side. He has some edema. Neurologic: He is awake, alert and oriented. ASSESSMENT: Ischemic pain with ulceration of the left foot. I reviewed his last MARICEL and I think we can proceed with an below-knee amputation with a reasonable chance to heal. I have discussed this with him and he understands and agrees to proceed. We will dialyze him today and hopefully proceed with amputation later today. cc: MD Randall Lyn MD
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
--- NOTE | 2019-03-29 11:43 | PROGRESS NOTE ---
DATE: 03/29/2019 Mr. Fung's vital signs are stable. He is somewhat nervous as this morning, he decided upon everybody's recommendation, especially Dr. Michael's recommendation about the below-knee amputation. He has agreed to go through that. His physical exam is unchanged. He does have significant ascites at the present time. Has history of renal failure and hepatic failure. Overall, condition is unchanged. The family understands that he is a bad surgical risk, but he has agreed for the left below-knee amputation. Will continue the current management. He has been placed on cefepime and vancomycin as per Dr. Lopez. Will continue the current management. cc: Randall Appiah MD
--- NOTE | 2019-03-29 12:26 | INFECTIOUS DISEASE PROGRESS NO ---
DATE: 03/29/2019 PRESENT ILLNESS: The patient has methicillin-resistant Staphylococcus aureus gangrenous cellulitis of the left foot. It has been getting progressively worse, and the patient is having severe pain with it. The patient also previously grew Edie from around his peritoneal dialysis catheter site. I looked at the site and to me it looks like it is doing well. MEDICATIONS: The patient, at home, was getting vancomycin for his foot cellulitis and fluconazole for the Edie infection around the peritoneal dialysis catheter site. PHYSICAL EXAMINATION: Vital Signs: Temperature is 97.6 degrees, pulse 64, respirations 16, blood pressure 88/44. The patient weighs 166 pounds. General: This is an ill-appearing, elderly male. He is in no acute distress at this time. Head/eyes/ears/nose/throat: He can hear my spoken words and see near objects. There is no white coating on his tongue. Neck: No meningismus. Lungs: Clear to auscultation. Cardiovascular: Regular heart rate. Thorax: The patient has a tunneled dialysis catheter present on the right side and the site is not erythematous or purulent. Abdomen: Soft. It is protuberant. He may well have ascites. He also has a peritoneal dialysis catheter in place. There is a little bit of pink discoloration around the catheter site, but no purulence. Extremities: The patient's left foot is more gangrenous and erythematous than it was when the patient went home. Neurologic: The patient is awake, he can move his extremities. There is no tremor. LAB AND X-RAY: The patient's CBC shows a white count of 6170, hemoglobin 8.4, and platelet count 134,000. Creatinine is 5.2. GFR is 11. Liver function studies are normal except for an alkaline phosphatase of 123. Culture from the left foot is pending. Chest x-ray shows chronic left basilar atelectasis. ASSESSMENT AND PLAN: The patient has gangrenous cellulitis of the left foot. I have started the patient on daptomycin and cefepime. Both antibiotics had the dose altered because of the patient's renal failure. I have talked to the patient about doing amputation of his foot and I explained to him that I do not feel his foot is going to get any better, it is only going to get worse and it is giving the patient a huge amount of pain. He has agreed to have Dr. Michael see him and most likely he will go ahead with an amputation since he only got worse since he went home. As regarding the peritoneal dialysis catheter site, the patient is on fluconazole and I think it is clearing up very well. COMORBIDITIES: The patient has end-stage renal disease. He has been on dialysis. He has had a myocardial infarction and stroke. He has cirrhosis of the liver. cc: MD Randall Neely MD
--- NOTE | 2019-03-29 12:43 | HISTORY AND PHYSICAL ---
HISTORY OF PRESENT ILLNESS: Mr. Fung, who is an 83-year-old white gentleman, a known case of end-stage renal failure, comes with recurrent infections and cellulitis of the left foot. He has severe cellulitis with multiple sores. The sores are on the 1st, 3rd and 5th toes on the left foot, and he has recurrent Staph infections. He has been given vancomycin with every dialysis treatment for the last 3 weeks. Besides this, he has a gangrenous little toe on the left side and has severe pain from the foot, which is severely ischemic. PAST SURGICAL HISTORY: Reveals history of parathyroidectomy. He had history of brain aneurysm surgery. He also had surgery for peritoneal catheter placement, and had a catheter for hemodialysis placed too. He has end-stage renal failure and has been diagnosed to have cirrhosis in the past. DETAILS OF PERSONAL, PAST AND FAMILY HISTORY: Noncontributory. He has been going through hemodialysis now 3 times a week under the direction of Dr. Bronson. SOCIAL HISTORY: Negative for smoking or alcoholism. ALLERGIES: He is allergic to zolpidem. REVIEW OF SYSTEMS: Other than severe pain and swelling of the left foot and severe pain in the left leg, it is noncontributory. PHYSICAL EXAMINATION: GENERAL: The patient is alert. VITAL SIGNS: Reveal temperature normal, pulse 69 per minute, respiratory rate 15 per minute. Blood pressure was 107/49. HEENT: Head normocephalic. Pupils PERRLA. Fundus examination not done. NECK: Supple. JVP normal. ENT examination unremarkable. There is no evidence of lymphadenopathy, thyroid enlargement. EXTREMITIES: He has bilateral leg edema. He is severely anemic and has gangrenous left little toe with possible gangrenous ulcerations on the other toes also. Namely, the big toe as well as middle and fifth toe. BREAST EXAM: Reveals gynecomastia. CHEST: Normal inspection. LUNGS: Clear on auscultation. PMI in the normal position. HEART: Sounds normal. No murmur, gallop or rub noted. ABDOMEN: Distended with ascites. There is no guarding, rigidity, mass or organomegaly. There is free fluid in the abdomen. RECTAL: Exam is deferred. HAZARDOUS WASTE TECHNICIAN: Higher functions: Patient is alert, oriented. Cranial nerves normal. Motor and sensory system examination unremarkable. Deep tendon reflexes normal. Plantars downgoing. SKULL AND SPINE EXAMINATION: Normal for age. No cerebellar signs or signs of meningeal irritation on local motor exam. SKIN: Exam unremarkable, except for the left foot changes. CLINICAL IMPRESSION: 1. Severe ischemic left foot with infection and cellulitis. 2. History of recurrent Staphylococcus infections. 3. History of renal failure. 4. History of cirrhosis of the liver. PLAN: Plan to start the IV vancomycin, as well as IV Zosyn, and get ID consult with Dr. Lopez and Nephrology consult with Dr. Bronson. cc: Randall Appiah MD
[2019-03-29] MEDS: MORPHINE IV PRN ×2 (13:17→19:00)
[2019-03-29] MEDS ORDERED: FENTANYL ONE (15:32)
[2019-03-29] MEDS ORDERED: DIPRIVAN 1% ONE (15:32)
[2019-03-29] MEDS ORDERED: ALBUMIN 25% ONE (15:39)
[2019-03-29] MEDS ORDERED: KEFZOL 1 GM/D5W 1 GM/50 ML IVPB ONE (16:16)
[2019-03-29] MEDS ORDERED: XYLOCAINE-MPF 2% ONE (17:18)
[2019-03-29] MEDS ORDERED: EPHEDRINE ONE (17:18)
[2019-03-29] MEDS ORDERED: MORPHINE ONE ×3 (17:35→17:53)
[2019-03-29] MEDS ORDERED: NORCO-10 ONE (17:43)
[2019-03-29] MEDS ORDERED: NS 250 ML ONE (18:16)
--- NOTE | 2019-03-29 20:07 | OPERATIVE NOTE ---
PROCEDURE DATE: 03/29/2019 PROCEDURE PERFORMED: Left below-knee amputation. SURGEON: Rupert Michael MD. LATHE OPERATOR CONTACT LENS: Manuel. PREOPERATIVE DIAGNOSIS: 1. Ischemic necrosis, left foot. 2. Chronic kidney disease 5. POSTOPERATIVE DIAGNOSIS: 1. Ischemic necrosis, left foot. 2. Chronic kidney disease 5. DESCRIPTION OF PROCEDURE: Satisfactory general anesthesia was achieved. The left leg was prepped and draped in a sterile fashion. We excluded the foot. We made a curvilinear klever 4 fingerbreadths below the tibial tubercle. We then made a posterior flap 12 cm distal to the anterior flap. We incised the skin and carried our incision to the subcutaneous tissue. A lot of edema fluid was present. The greater saphenous veins were ligated and divided with 3-0 Polysorbs. We used electrocautery to go through the muscle, through the anterior compartment. The anterior tibial vessels were clamped, divided, and ligated with 2-0 silk suture ligatures. We then, after exposing the tibia, passed a Norma behind it, transected it with a Gigli saw, tapering it anteriorly. 1 cm above that, we exposed the fibula and transected it with a [employer] bone biter. We then used a guillotine knife and slid behind both bones and took the muscle off the back of the bones and then transected the muscle at the distal end of our skin incision. We then clamped and divided the small vessels and ligated the major vessels with 2-0 silk suture ligatures. The small vessels were cauterized. The tibial nerve was ligated with a 3-0 Polysorb and excised. After achieving satisfactory hemostasis, we copiously irrigated the end of the muscle and stump. We used a rasp to smooth the end of the tibia. We then folded the muscle anteriorly and used 0 Polysorbs between the muscle groups to approximate the posterior flap to the anterior flap. We used 3-0 Polysorb to the subcutaneous tissue. We then used miriam in the skin to approximate the skin edges. Sterile Xeroform followed by sterile 4 x 4s, followed by sterile Kerlix were applied. We then used a 6-inch OCL splint followed by a 6 inch Kelton. Patient tolerated the procedure satisfactorily and was sent to the recovery room in stable condition. 2 units of blood were ordered to be given on dialysis. cc: MD Randall Lyn MD
[2019-03-29] MEDS: XANAX PO SCH (22:18)
[2019-03-29] MEDS: ROCALTROL PO SCH (22:38)
[2019-03-30 05:29] LABS: BASO# 0.02 X1000 (0.0-0.2); BASO% 0.3 % (0.0-0.8); EOS# 0.09 X1000 (0.0-0.7); EOS% 1.4 % (0.0-10.0); HEMATOCRIT 28.9 % (42.0-52.0); HEMOGLOBIN 9.4 g/dL (14.0-18.0); LYMPH# 0.96 X1000 (1.2-3.4); LYMPH% 15.2 % (20.5-51.1); MCHC 32.5 g/dL (33-37); MCV 95.4 FL (81-99); MONO# 0.59 X1000 (0.11-0.59); MONO% 9.3 % (1.7-9.3); MPV 9.6 FL (7.4-10.4); NEUT# 4.67 X1000 (1.4-6.5); NEUT% 73.8 % (42.2-75.2); PLT 115 X1000 (130-400); RBC 3.03 XMIL (4.7-6.1); RDW 17.4 % (11.5-14.5); WBC 6.33 X1000 (4.8-10.8)
[2019-03-30 05:59] LABS: CALCIUM 7.5 mg/dL (8.8-10.2); POTASSIUM 2.9 mmol/L (3.5-5.1)
[2019-03-30 06:05] LABS: CREATININE 5.5 mg/dL (0.7-1.2)
--- NOTE | 2019-03-30 06:45 | GENERAL SURGERY PROGRESS NOTE ---
DATE: 03/30/2019 SUBJECTIVE: Mr. Fung is doing well this morning. He has no complaints. OBJECTIVE: His heart rate 74, blood pressure 84/42. White count is 6000, hemoglobin 9.4, hematocrit 28.9. Potassium 2.9, BUN 31, creatinine 5.5. His splint is in place. I did not unwrap his stump. PLAN: Dr. Wilson will cover in my absence. No new recommendations. I am pleased with his progress, as is he. cc: MD Randall Lyn MD
[2019-03-30] MEDS: NORCO-10 PO PRN ×2 (06:46→16:44)
[2019-03-30] MEDS ORDERED: KLOR-CON PO ONE (06:50)
[2019-03-30] MEDS: TUMS PO SCH ×3 (06:54→17:20)
[2019-03-30] MEDS: 1/2 NS 1,000 ML IV SCH (06:54)
--- NOTE | 2019-03-30 08:57 | PROGRESS NOTE ---
DATE: 03/30/2019 SUBJECTIVE: Mr. Fung is status post left below-knee amputation for nonhealing ulcer, recurrent infection and gangrene. Patient tolerated the procedure well. The patient did have some pain. We are managing his pain with the pain medication. No fever or chills. No typical chest pain or palpitations. No unusual shortness of breath. Known case of end-stage dialysis. Patient had peritoneal dialysis last night. Denied any nausea or vomiting. No unusual cough or expectoration. PAST MEDICAL HISTORY: Significant for surgery for hyperparathyroidism, brain aneurysm surgery. Patient had peritoneal dialysis catheter placement, end-stage renal disease on hemodialysis. Cirrhosis. His other problems includes BPH. Admission history and physical noted. OBJECTIVE: Vital Signs: Blood pressure 84/42, pulse 53, respiration rate 14, temperature 97.6 degrees. Skin: Senile turgor. Neck: Supple. No JVD. Lungs: Bibasilar crepitations. Heart: 2/6 systolic murmur at the apex. Abdomen: Soft, globular. Bowel sounds present. LARD BLEACHER: Alert, awake, answering questions fairly well. LABORATORY DATA: Done today, hemoglobin 9.4, hematocrit 28.9, WBC 6.33, platelet count 115. Electrolytes with potassium 2.9. BUN 31, creatinine 5.5. PROBLEMS: 1. Chronic infection of the left foot status post left below-knee amputation. 2. End-stage renal disease, on hemodialysis. 3. Hyperkalemia. 4. History suggestive of benign prostatic hypertrophy. 5. Hypotension. Medication noted. 6. Anemia of chronic disease. PLAN: Continue current treatment. Close observation. Reinforced Ironworker, surgeon and ID specialist following patient with us. cc: MD Randall Carey MD
[2019-03-30] MEDS ORDERED: XANAX PO PRN (09:12)
[2019-03-30] MEDS: PATIENT'S OWN MED PO SCH (09:15)
[2019-03-30] MEDS: PROTONIX PO SCH ×2 (09:30→21:15)
[2019-03-30] MEDS: ATIVAN INJ PRN ×2 (09:30→17:53)
[2019-03-30] MEDS: NEPHRO-VITE PO SCH (09:31)
[2019-03-30] MEDS: PROSCAR PO SCH (09:31)
[2019-03-30] MEDS: DIFLUCAN PO SCH (09:31)
[2019-03-30] MEDS: NORCO-5 PO SCH ×2 (09:31→21:15)
[2019-03-30] MEDS: SENSIPAR PO SCH (09:31)
[2019-03-30] MEDS: NS 500 ML IV SCH ×3 (16:40→18:14)
[2019-03-30] MEDS: XANAX PO SCH (21:15)
[2019-03-31] MEDS: NORCO-10 PO PRN ×4 (00:48→22:37)
[2019-03-31] MEDS: NS 500 ML IV SCH ×3 (01:01→12:18)
[2019-03-31 05:42] LABS: BASO# 0.02 X1000 (0.0-0.2); BASO% 0.3 % (0.0-0.8); EOS# 0.08 X1000 (0.0-0.7); EOS% 1.2 % (0.0-10.0); HEMATOCRIT 29.5 % (42.0-52.0); HEMOGLOBIN 9.9 g/dL (14.0-18.0); LYMPH# 0.89 X1000 (1.2-3.4); LYMPH% 13.1 % (20.5-51.1); MCH 31.4 PG (27-31); MCHC 33.6 g/dL (33-37); MCV 93.7 FL (81-99); MONO# 0.59 X1000 (0.11-0.59); MONO% 8.7 % (1.7-9.3); MPV 9.6 FL (7.4-10.4); NEUT# 5.19 X1000 (1.4-6.5); NEUT% 76.7 % (42.2-75.2); PLT 100 X1000 (130-400); RBC 3.15 XMIL (4.7-6.1); RDW 17.1 % (11.5-14.5); WBC 6.77 X1000 (4.8-10.8)
[2019-03-31 06:18] LABS: ALBUMIN 2.2 g/dL (3.5-5.0); CALCIUM 7.3 mg/dL (8.8-10.2); CREATININE 6.7 mg/dL (0.7-1.2); POTASSIUM 3.9 mmol/L (3.5-5.1); TOTAL BILIRUBIN 0.83 mg/dL (0.20-1.00); TOTAL PROTEIN 4.5 g/dL (6.3-8.3)
--- NOTE | 2019-03-31 07:12 | INFECTIOUS DISEASE PROGRESS NO ---
DATE: 03/31/2019 PRESENT ILLNESS: The patient had a very severely infected left foot. He is now status post below- the-knee amputation. He also had a Edie infection from around his peritoneal dialysis catheter. This has cleared up. MEDICATIONS: The patient in the hospital now is getting cefepime after dialysis and fluconazole. PHYSICAL EXAMINATION: Vital Signs: Temperature is 98.4 degrees, pulse 76, respirations 18, blood pressure is 91/50. General: This is an ill-appearing elderly male. He is in no acute distress at this time. Head/eyes/ears/nose/throat: He can hear my spoken words and see near objects. I did not notice any white patches in his mouth. Neck: No pain with movement. Lungs: Clear to auscultation. Cardiovascular: Regular heart rate. Thorax: The patient in the right upper part of the chest has a tunneled dialysis catheter. The site is not erythematous or purulent. Abdomen: Soft and nontender. The patient does have a peritoneal dialysis catheter in place. Around the catheter, there is no erythema or purulence. Extremities: The patient has a left [id number] amputation. He has a large dressing and splint on the leg which appear to be intact. Neurologic: The patient is awake. He can move his extremities. He does not have any tremor. LAB AND X-RAY STUDIES: Culture from the patient's left foot grew E coli. The patient's CBC shows a white count of 6770, hemoglobin 9.9, and platelet count 100,000. Creatinine is 6.7. GFR is 8. Alkaline phosphatase is 127. ASSESSMENT AND PLAN: The patient had a gangrenous cellulitis of the left foot. This has cleared. I am going to discontinue his an antibiotic, namely cefepime. Vancomycin already has been cleared. I am going to stop the cefepime after today's dose. As regarding the patient's Edie infection around the peritoneal dialysis catheter, this has cleared and I am going to stop fluconazole after today's dose also. COMORBIDITIES: The patient has end-stage renal disease, he is on hemodialysis. He has had a myocardial infarction and stroke. He also has cirrhosis of the liver. I am signing off on the patient's case. His antimicrobial agents have been discontinued. I am available to see him on a p.r.n. basis. cc: MD Randall Neely MD
--- NOTE | 2019-03-31 08:53 | GENERAL SURGERY PROGRESS NOTE ---
DATE: 03/31/2019 SUBJECTIVE: Mr. Fung had quite a bit of pain last night but he is more comfortable now. His bandage is dry. He is on dialysis. His hemodynamics are satisfactory. PLAN: We will continue with our current treatment. cc: MD Randall Lyn MD
--- NOTE | 2019-03-31 09:01 | PROGRESS NOTE ---
DATE: 03/31/2019 SUBJECTIVE: Mr. Fung is doing better. He denied any fever or chills. Oral intake is fair. Blood pressure is still normal but still low. The patient is tolerating it okay. No diarrhea, blood or mucus in the stool. The patient is status post left below-knee amputation. OBJECTIVE: Vital Signs: Noted. Neck: Supple. No JVD. Lungs: Bibasilar crepitations. Heart: S1 and S2 heard. 2/6 systolic murmur at the apex. Abdomen: Soft, scaphoid. Bowel sounds present. Mild ascites. Extremities: Left below-knee amputation. VEHICLE BODY BUILDER: Alert, awake. Answering questions fair. LABORATORY DATA: Done today, hemoglobin 9.9, hematocrit 29.5, WBC count 6.77, platelet count was 100,000. Electrolytes are noted. Sodium 134, potassium 3.9. BUN 40, creatinine 6.7 ASSESSMENT: 1. End-stage renal disease, nonhealing ulcer on the leg status post amputation. 2. History suggestive of benign prostatic hypertrophy. 3. Low blood pressure. Tolerating it well. 4. Anemia of chronic disease. Overall patient is doing better. We will continue current treatment. Close observation. PLAN: 1. Dr. Lopez' recommendation noted. 2. We will continue current treatment. 3. Family wants to wait till PMD sees him to be discharged. cc: MD Randall Carey MD
[2019-03-31] MEDS ORDERED: NS 2,000 ML MISC PRN (09:03)
[2019-03-31] MEDS: NORCO-5 PO SCH ×2 (12:14→21:05)
[2019-03-31] MEDS: PROTONIX PO SCH ×2 (12:15→21:05)
[2019-03-31] MEDS: DIFLUCAN PO SCH (12:15)
[2019-03-31] MEDS: SENSIPAR PO SCH (12:16)
[2019-03-31] MEDS: PROSCAR PO SCH (12:16)
[2019-03-31] MEDS: NEPHRO-VITE PO SCH (12:16)
[2019-03-31] MEDS: PATIENT'S OWN MED PO SCH (12:17)
[2019-03-31] MEDS: 1/2 NS 1,000 ML IV SCH (12:17)
[2019-03-31] MEDS: TUMS PO SCH ×3 (12:18→18:44)
[2019-03-31] MEDS: ATIVAN INJ PRN (14:46)
--- NOTE | 2019-03-31 15:46 | NEPHROLOGY PROGRESS NOTE ---
DATE: 03/31/2019 SUBJECTIVE: He is still having pain and his appetite is low. No vomiting. OBJECTIVE: Vital Signs: Blood pressure 111/50, heart rate 82, respirations 14, afebrile. General: No acute distress. Skin is warm and dry but pale. Conjunctivae are pink. Pupils are equal. Neck: Neck veins are not distended. Heart: Regular. No gallops. Lungs: Equal. No crackles. Abdomen: Soft, nontender. Normal bowel sounds. Extremities: 1+ edema. No clubbing or cyanosis. IMPRESSION: 1. Chronic kidney disease 5D. He had his routine dialysis today though he was not able to complete his treatment secondary to pain. He has morphine ordered. 2. Volume status. Mild edema. Blood pressure has been low overall. This is likely from his narcotics. We will stop his fluids at this time. 3. Ischemic cardiomyopathy. 4. Electrolytes/acid base acceptable. 5. Anemia. Hemoglobin is stable following transfusion. cc: MD Randall Mccoy MD
[2019-03-31] MEDS ORDERED: MAXIPIME 1 GM in NS 50 ML IV ONE (16:00)
[2019-03-31] MEDS: ROCALTROL PO SCH (18:44)
[2019-03-31] MEDS: XANAX PO SCH (21:06)
[2019-04-01] MEDS: PROTONIX PO SCH ×2 (08:33→20:33)
[2019-04-01] MEDS: SENSIPAR PO SCH (08:33)
[2019-04-01] MEDS: NORCO-5 PO SCH ×2 (08:33→20:32)
[2019-04-01] MEDS: NEPHRO-VITE PO SCH (08:33)
[2019-04-01] MEDS: PROSCAR PO SCH (08:33)
--- NOTE | 2019-04-01 09:03 | PROGRESS NOTE ---
DATE: 04/01/2019 VITAL SIGNS: Temperature 97.8 degrees, heart rate 80, respirations 18, blood pressure 91/45, O2 saturation on room air 100%. SUBJECTIVE: Patient is confused, and his in the room states the Ativan seems to make him worse. He also cannot take Ambien. He rested poorly last night. He has chronic renal disease, and is on peritoneal dialysis. He also had left [id number] amputation by Dr. Michael on 03/29. He denies much pain related to this. He is off antibiotics and Diflucan per Dr. Lopez. OBJECTIVE: Chest is clear. Abdomen is soft. Hematocrit yesterday was 29.5, white blood count 6700. PLAN: Continue current therapy, and change Ativan. cc: MD Randall Neal MD
[2019-04-01] MEDS: PATIENT'S OWN MED PO SCH (10:02)
[2019-04-01] MEDS: TUMS PO SCH ×3 (10:03→15:25)
--- NOTE | 2019-04-01 10:49 | GENERAL SURGERY PROGRESS NOTE ---
DATE: 04/01/2019 SUBJECTIVE: Doing okay. Still having some pain. His says he is having a little delirium. Had dialysis yesterday. OBJECTIVE: No fevers. Pulse 80, blood pressure 91/45, oxygen saturation 100% on 2 L.General: He seems alert and oriented. Currently abdomen is soft. Left BKA dressing is intact. LABS: I reviewed his labs. White count 6, hematocrit 39, platelets 100,000. Creatinine 6.7. ASSESSMENT AND PLAN: This is a gentleman status post left below-knee amputation. We will remove his dressing today and continue physical therapy. DISPOSITION: Pending his progress. cc: MD Randall Peraza MD
[2019-04-01] MEDS: XANAX PO SCH ×2 (12:17→20:32)
--- NOTE | 2019-04-01 14:10 | NEPHROLOGY PROGRESS NOTE ---
DATE: 04/01/2019 SUBJECTIVE: He is lying in bed. His pain is improved overall. He does still have episodes of severe pain. He is not eating and he has not had a bowel movement. OBJECTIVE: Vital Signs: Blood pressure 96/46, heart rate 79, respirations 16, afebrile. General: No acute distress. Skin: Pale and dry. Conjunctivae are pink. Neck: Neck veins are not distended. Heart: Regular with systolic murmur. Lungs: Equal. No crackles. Abdomen: Soft, nontender. Bowel sounds present. Extremities: With trace edema. No clubbing or cyanosis. IMPRESSION AND PLAN: Chronic kidney disease 5D. He will have his next routine hemodialysis on Wednesday. We will start IV PN. If he does not begin to eat then he will likely need a feeding tube. We will provide Nepro shakes. cc: MD Randall Mccoy MD
[2019-04-01] MEDS ORDERED: ALBUTEROL NEB INH PRN (15:49)
[2019-04-01] MEDS ORDERED: CALMOSEPTINE OINTMENT TOP PRN (15:52)
[2019-04-01] MEDS ORDERED: SEROQUEL PO SCH (21:00)
[2019-04-02] MEDS: NORCO-10 PO PRN ×2 (00:11→16:24)
[2019-04-02] MEDS: XANAX PO SCH ×3 (05:25→23:12)
[2019-04-02] MEDS: TUMS PO SCH ×3 (06:05→16:24)
[2019-04-02] MEDS: NORCO-5 PO SCH ×2 (08:46→23:10)
[2019-04-02] MEDS: PROSCAR PO SCH (08:46)
[2019-04-02] MEDS: NEPHRO-VITE PO SCH (08:46)
[2019-04-02] MEDS: SENSIPAR PO SCH (08:46)
[2019-04-02] MEDS: PROTONIX PO SCH ×2 (08:46→23:12)
--- NOTE | 2019-04-02 09:56 | PROGRESS NOTE ---
DATE: 04/02/2019 VITAL SIGNS: Temperature 97.4 degrees, heart rate 79, respirations 14, blood pressure 80/45, O2 saturation on room air 99%. SUBJECTIVE: The patient continues to be confused and rested poorly last night despite low-dose Seroquel. This is discontinued since he continues to be confused. He is taking very little p.o. liquid, and has not tolerated Nepro shakes. He may need NG feedings if he does not improve. Nebulizer treatments are added with albuterol and Atrovent q.i.d. He is a little congested with upper airway increased breath sounds this morning. Lab will be rechecked tomorrow morning. cc: MD Randall Neal MD
[2019-04-02] MEDS: PATIENT'S OWN MED PO SCH (10:28)
[2019-04-02] MEDS: ROBITUSSIN-DM PO SCH ×3 (12:11→23:10)
--- NOTE | 2019-04-02 14:13 | GENERAL SURGERY PROGRESS NOTE ---
DATE: 04/02/2019 SUBJECTIVE: Doing okay. Still a little confused. Not really eating. No fevers. No tachycardia. Blood pressure has been marginal. Systolics in the 80s to 90s. Left BK wound is healing well with no necrosis or infection. LABORATORY DATA: No new labs this morning. ASSESSMENT AND PLAN: An 83-year-old gentleman status post left below-knee amputation. I do not see any wound issues. Will keep knee immobilizer in place. Continue physical therapy, nutritional support, and rehabilitation. cc: MD Randall Peraza MD
[2019-04-02] MEDS: DUONEB (A & A) INH SCH ×2 (15:24→20:22)
[2019-04-02] MEDS: MORPHINE IV PRN (18:22)
[2019-04-03] MEDS: DUONEB (A & A) INH SCH ×4 (03:36→21:30)
[2019-04-03 05:29] LABS: BASO# 0.03 X1000 (0.0-0.2); BASO% 0.3 % (0.0-0.8); EOS# 0.19 X1000 (0.0-0.7); EOS% 2.2 % (0.0-10.0); HEMATOCRIT 29.5 % (42.0-52.0); HEMOGLOBIN 9.6 g/dL (14.0-18.0); IMM GRAN# 0.02 X1000 (0.0-0.04); IMM GRAN% 0.2 % (0.0-0.5); LYMPH# 0.91 X1000 (1.2-3.4); LYMPH% 10.5 % (20.5-51.1); MCH 31.4 PG (27-31); MCHC 32.5 g/dL (33-37); MCV 96.4 FL (81-99); MONO# 0.67 X1000 (0.11-0.59); MONO% 7.7 % (1.7-9.3); MPV 9.4 FL (7.4-10.4); NEUT# 6.87 X1000 (1.4-6.5); NEUT% 79.1 % (42.2-75.2); PLT 107 X1000 (130-400); RBC 3.06 XMIL (4.7-6.1); RDW 16.5 % (11.5-14.5); WBC 8.69 X1000 (4.8-10.8)
[2019-04-03 05:46] LABS: CREATININE 7.5 mg/dL (0.7-1.2)
[2019-04-03] MEDS: TUMS PO SCH ×4 (06:12→18:45)
[2019-04-03] MEDS: XANAX PO SCH ×3 (06:13→20:52)
[2019-04-03] MEDS ORDERED: CLINIMIX E 4.25%-5% SOLUTION 1,000 ML IV SCH (09:00)
--- NOTE | 2019-04-03 09:22 | PROGRESS NOTE ---
DATE: 04/03/2019 SUBJECTIVE: Mr. Fung is very weak, somewhat drowsy, less confused. His vital signs are stable. OBJECTIVE: Vital Signs: His temperature is normal, pulse 79 per minute, respiratory rate 12, and blood pressure is 85/47. Oral intake is very poor. Lungs: His lungs reveal some wheezing. Abdomen: Abdomen is distended with ascites. Extremities: He had left below-knee amputation. LABS AND X-RAYS: Oral intake is very poor. Electrolytes have been stable. He has renal failure. Blood sugar was 82, calcium was 8.0. Hemoglobin is 9.6, hematocrit 29.5 with white count of 8.96. DISPOSITION: He is not drinking his Nepro drink, and we are going to start Clinimix at 30 mL/hour. Overall prognosis appears poor. cc: Randall Appiah MD
[2019-04-03] MEDS: ROBITUSSIN-DM PO SCH ×2 (11:14→18:24)
[2019-04-03] MEDS: NEPHRO-VITE PO SCH (11:15)
[2019-04-03] MEDS: SENSIPAR PO SCH (11:15)
[2019-04-03] MEDS: PROSCAR PO SCH (11:15)
[2019-04-03] MEDS: PROTONIX PO SCH ×2 (11:16→20:52)
[2019-04-03] MEDS: NORCO-5 PO SCH ×2 (11:16→20:52)
[2019-04-03] MEDS: PATIENT'S OWN MED PO SCH (11:32)
[2019-04-03] MEDS: ALBUMIN 25% IV SCH (11:52)
[2019-04-03] MEDS: D50W 250 ML, AMINOSYN 15% 500 ML, LIPOSYN 20% 250 ML IV SCH ×3 (14:15)
[2019-04-03] MEDS ORDERED: NS 2,000 ML MISC PRN (15:03)
[2019-04-03] MEDS ORDERED: TYLENOL PO ONE (15:27)
--- NOTE | 2019-04-03 16:30 | PROVIDER PROGRESS NOTE ---
Progress Note Subjective: Pt voices feeling ok. He denies chest pain, nausea, vomiting, or shortness of breath. Admits to no appetite. Objective: temp 99.2, pulse 83, respirations 18, blood pressure 87/47, 02 sat 99% on room air. General: chronic Ill appearing elderly white male laying in bed in no acute distress. HEENT: Normocephalic, atraumatic. Pupils equal and reactive. Mucous membranes dry. Trach is midline. Skin, thin, friable. Multiple bruises and different healing stages. Right tunnel cath in place. neck: supple, no JVD. cardiovascular: S1, S2, S4 with a gallop. No murmur. Respiratory: lungs clear bilaterally with equal excursion. abdomen: soft, obese, nontender, nondistended . Bowel sounds present. PD catheter in place. : non-inspected extremities: left below knee amputation noted. neurological: alert and oriented to person, place, and time. Labs: WBC 8.69, hemoglobin 9.6, hematocrit 29.5, platelet count 107, sodium 139, potassium five, chloride 96, carbon dioxide 19, BUN 52, creatinine 7.5. Intake zero output zero Impression: Chronic kidney disease stage 5D. Patient will have his routine hemodialysis today. Blood pressure. Below target. We will give 50 grams albumin at the start of dialysis today. Even or positive fluid balance. Anemia. Chronically low. Does not meet transfusion criteria. Acid base balance and electrolytes. Will receive hemodialysis today. Fluid volume. Euvolemic or dry. As above. Nutrition. Below target. IDPN ordered for hemodialysis treatment. Place feeding tube. Medication review. No change.
[2019-04-03] MEDS: MORPHINE IV PRN (16:34)
[2019-04-03] MEDS: ROCALTROL PO SCH (18:45)
--- NOTE | 2019-04-03 22:53 | GENERAL SURGERY PROGRESS NOTE ---
DATE: 04/03/2019 SUBJECTIVE: He is now 5 days after left BKA. He is afebrile with satisfactory hemodynamics. His stump looks good. It is appears to be healing satisfactorily. I think he would be best served by transfer to rehab whenever he is ready for discharge. cc: MD Randall Lyn MD
[2019-04-04] MEDS: ROBITUSSIN-DM PO SCH ×6 (00:39→16:33)
[2019-04-04] MEDS: DUONEB (A & A) INH SCH ×4 (03:14→21:15)
[2019-04-04 05:36] LABS: BASO# 0.03 X1000 (0.0-0.2); BASO% 0.4 % (0.0-0.8); EOS# 0.15 X1000 (0.0-0.7); EOS% 1.9 % (0.0-10.0); HEMATOCRIT 27.6 % (42.0-52.0); HEMOGLOBIN 8.8 g/dL (14.0-18.0); IMM GRAN# 0.02 X1000 (0.0-0.04); IMM GRAN% 0.3 % (0.0-0.5); LYMPH% 15.2 % (20.5-51.1); MCHC 31.9 g/dL (33-37); MCV 97.2 FL (81-99); MONO# 0.87 X1000 (0.11-0.59); MPV 9.9 FL (7.4-10.4); NEUT# 5.61 X1000 (1.4-6.5); NEUT% 71.2 % (42.2-75.2); PLT 93 X1000 (130-400); RBC 2.84 XMIL (4.7-6.1); WBC 7.88 X1000 (4.8-10.8)
[2019-04-04 05:49] LABS: CALCIUM 7.9 mg/dL (8.8-10.2); CREATININE 4.1 mg/dL (0.7-1.2); POTASSIUM 3.9 mmol/L (3.5-5.1)
[2019-04-04] MEDS: XANAX PO SCH ×2 (06:54→14:03)
[2019-04-04] MEDS: TUMS PO SCH ×2 (06:56→11:13)
[2019-04-04] MEDS: MORPHINE IV PRN ×2 (08:28→14:53)
--- NOTE | 2019-04-04 10:15 | PROGRESS NOTE ---
DATE: 04/04/2019 Mr. Fung is in about the same general condition. He is a little more alert this morning, but at times he tries to pull the oxygen off and gets confused. His blood pressure is low. He refused to get NG tube feeding yesterday. We are going to step up on the Clinimix to 40 mL/hour. Overall condition is poor. Once he is stable enough, we may think about rehab for him if his okays it. Overall prognosis still seems to be poor. He gets dialysis on every other day basis. Electrolytes are stable this morning. -3 cc: Randall Appiah MD
[2019-04-04] MEDS: PROTONIX PO SCH ×2 (10:57→21:16)
[2019-04-04] MEDS: SENSIPAR PO SCH (10:57)
[2019-04-04] MEDS: PROSCAR PO SCH (10:57)
[2019-04-04] MEDS: ALBUMIN 25% IV SCH (10:57)
[2019-04-04] MEDS: NEPHRO-VITE PO SCH (10:57)
[2019-04-04] MEDS: PATIENT'S OWN MED PO SCH (10:58)
[2019-04-04] MEDS: NORCO-5 PO SCH (11:02)
[2019-04-04] MEDS: CLINIMIX E 4.25%-5% SOLUTION 1,000 ML IV SCH ×2 (11:03→17:57)
--- NOTE | 2019-04-04 18:37 | PROVIDER PROGRESS NOTE ---
Progress Note Subjective: Pt voices having an uneventful night. He refused an NG tube with staff after agreeing with me to get one. Besides decreased appetite, he denies any uremic complaints. Objective: temp 98.3, pulse 75, respirations 18, blood pressure 94/52, o2 sat 92% on room air. General: chronic Ill appearing elderly white male laying in bed in no acute distress. HEENT: Normocephalic, atraumatic. Pupils equal and reactive. Mucous membranes dry. Trachea is midline. Skin, thin, friable. Multiple bruises and different healing stages. Right tunnel cath in place. neck: supple, no JVD. cardiovascular: S1, S2, S4 with a gallop. No murmur. Respiratory: lungs clear bilaterally with equal excursion. abdomen: soft, obese, nontender, nondistended . Bowel sounds present. PD catheter in place. : non-inspected extremities: left below knee amputation noted. neurological: alert and oriented to person, place, and time. Labs: WBC 7.8, hemoglobin 8.8, hematocrit 27.6, platelet count 93, sodium 139, potassium 3.9, carbon dioxide 24, BUN 33, creatinine 4.1, intake 300, output zero. Impression: Chronic kidney disease stage 5D. He received his routine hemodialysis yesterday without complications. Blood pressure. Low, but stable. Anemia. Chronically low. Does not meet transfusion criteria. Acid base balance and electrolytes. Stable. Fluid volume. Euvolemic. Nutrition. Below target. Will order a GI consult with Yousef for Peg tube placement. Medication review. No change.
[2019-04-04] MEDS: ULTRAM PO SCH (21:16)
[2019-04-05] MEDS: RISPERDAL PO SCH ×2 (00:06→21:03)
[2019-04-05] MEDS: ROBITUSSIN-DM PO SCH ×6 (00:10→21:10)
[2019-04-05] MEDS: NORCO-10 PO PRN ×2 (01:55→09:57)
[2019-04-05] MEDS: DUONEB (A & A) INH SCH ×4 (05:01→21:26)
[2019-04-05] MEDS ORDERED: HEPARIN IV PRN (07:00)
[2019-04-05] MEDS ORDERED: TIGHT: 0.2 ML/HR FOR DIALYSIS MISC PRN (07:00)
[2019-04-05] MEDS ORDERED: NS 2,000 ML MISC PRN (07:00)
--- NOTE | 2019-04-05 08:29 | EKG Report ---
Test Performed on : 04/05/2019 08:19:21 AM Test Reason : CP Blood Pressure : / mmHG Vent. Rate : 097 BPM Atrial Rate : 097 BPM P-R Int : 140 ms QRS Dur : 088 ms QT Int : 368 ms P-R-T Axes : 044 -38 062 degrees QTc Int : 467 ms Normal sinus rhythm. Left axis deviation Low voltage QRS Cannot rule out Anterior infarct , age undetermined Abnormal ECG When compared with ECG of 29-MAR-2019 07:34, Minimal criteria for Anterior infarct are now present Nonspecific T wave abnormality, improved in Lateral leads Confirmed by Bijal HERRERA, Randall ([id number]) on 04/05/2019 8:56:27 AM
[2019-04-05] MEDS: D50W 250 ML, AMINOSYN 15% 500 ML, LIPOSYN 20% 250 ML IV SCH ×3 (08:55)
--- NOTE | 2019-04-05 09:46 | PROVIDER PROGRESS NOTE ---
Progress Note Subjective: Pt lying in bed complaining of left leg pain with no rest during the night. Objective: temp 99.6, pulse 93, respiration 16, blood pressure 103/63, 02 sat 93% on room air. General: chronic Ill appearing elderly white male laying in bed in no acute distress. HEENT: Normocephalic, atraumatic. Pupils equal and reactive. Mucous membranes dry. Trachea is midline. Skin, thin, friable. Multiple bruises and different healing stages. Right tunnel cath in place. neck: supple, no JVD. cardiovascular: S1, S2, S4 with a gallop. No murmur. Respiratory: lungs clear bilaterally with equal excursion. abdomen: soft, obese, nontender, nondistended . Bowel sounds present. PD catheter in place. : non-inspected extremities: left below knee amputation noted. [place] intact. neurological: alert and oriented to person, place, and time. Labs: 714 in, 0 out. Impression: Chronic kidney disease stage 5D. He Will receive his routine hemodialysis with a 2.5 Ca and 2K bath. Encouraged to stay the prescribed time. Blood pressure. Low, but stable. Anemia. Chronically low. Does not meet transfusion criteria on last lab. Acid base balance and electrolytes. On last lab Stable. Fluid volume. Euvolemic. Nutrition. Below target. GI consult with Yousef for Peg tube placement ordered. Depression. We will add cymbalta. Ambulation. Encouraged to participate in ordered therapy. Medication review. No change. Discussed pain, depression, malnutrition, debilitation, esrd with the family. We discussed the current plan for these problems. I think that there are still treatment options for him but it is not clear that he has the will to work through it. We discussed withdrawal of dialysis and the expected course. They will consider it.
--- NOTE | 2019-04-05 13:08 | Diag Imaging Result Doc PS360 ---
EXAM: US ABDOMEN-COMPLETE HISTORY: check for peritoneal fluid TECHNIQUE: Abdominal ultrasound COMPARISON: None. FINDINGS: The pancreas is obscured. There is fatty infiltration of the liver. There is a small amount of fluid about the liver. No gallstones. The right kidney is atrophic. Moderate fluid about the spleen and in the left lower quadrant. The spleen measures 15.9 cm. Left kidney is not identified. The aorta and inferior vena cava are poorly seen. IMPRESSION: 1. Moderate ascites. 2. Atrophic right kidney 3. Splenomegaly Electronically signed by Jeramy Carmona 04/05/2019 1:06 PM
[2019-04-05] MEDS: ALBUMIN 25% IV SCH (13:47)
[2019-04-05] MEDS: NEPHRO-VITE PO SCH (13:51)
[2019-04-05] MEDS: PROTONIX PO SCH ×2 (13:51→21:03)
[2019-04-05] MEDS: PATIENT'S OWN MED PO SCH (13:51)
[2019-04-05] MEDS: ULTRAM PO SCH ×2 (13:51→21:03)
--- NOTE | 2019-04-05 13:56 | PROGRESS NOTE ---
DATE: 04/05/2019 Mr. Fung had chest pain this morning. A repeat urgent EKG was done and it was negative for any acute changes. His hemoglobin is 8.8 and hematocrit is 27.6. Electrolytes are stable. He was seen by Dr. Bronson earlier. We discussed about DNR 1 wants to continue with dialysis. He does not eat much and does not take Nepro shakes. He refused NG tube the other day. We are thinking about evaluation with Dr. Guardado for PEG tube. -7 cc: Randall Appiah MD [facility]
[2019-04-05] MEDS: CLINIMIX E 4.25%-5% SOLUTION 1,000 ML IV SCH (17:03)
[2019-04-05] MEDS: ROCALTROL PO SCH (19:03)
--- NOTE | 2019-04-05 20:46 | GENERAL SURGERY PROGRESS NOTE ---
DATE: 04/05/2019 SUBJECTIVE/PLAN: Mr. Fung's stump looks good. However, he is bending his leg too much. We need to fix the splint to keep it straight. Physical Therapy needs to see him to assist with transfer training. cc: MD Randall Lyn MD
[2019-04-05] MEDS ORDERED: CYMBALTA PO SCH (21:00)
[2019-04-05] MEDS: MORPHINE IV PRN (21:00)
[2019-04-06] MEDS: ROBITUSSIN-DM PO SCH ×2 (00:08→04:46)
[2019-04-06] MEDS: MORPHINE IV PRN ×6 (03:14→22:11)
[2019-04-06] MEDS: DUONEB (A & A) INH SCH ×4 (03:33→21:48)
--- NOTE | 2019-04-06 07:14 | GASTROENTEROLOGY CONSULTATION ---
DATE: 04/05/2019 HISTORY OF PRESENT ILLNESS: This is an 83-year-old male who we have seen in the hospital in the past, and also has recently in the office. We had last seen him in the hospital in January. At that time, we were asked to see him for decreased appetite. Patient had been on peritoneal dialysis. During that hospitalization, he was converted over to hemodialysis. At the time of his office visit on 03/02/2019, patient's appetite had improved and he seemed to be eating better. He was at that time following with Dr. Lopez for left foot infection. Since that time, his foot infection did not heal and he required amputation. He had surgery on 03/29/[address] Michael a left below the knee amputation. Patient has a brace on that left extremity. Family is at the bedside. We were asked to see the patient this hospitalization for anorexia requesting possible PEG tube placement. Patient states that he does not have an appetite, and he does not want to eat. He is not even drinking per his 's report. She states he has not eaten anything in almost 8 days. There was a discussion of possible NG tube feeding, but the patient refused. Patient is receiving hemodialysis. He has dialysis scheduled for today. Patient denies dysphagia to food or pills. He denies a sore throat. No reported abdominal pain. He does still have his peritoneal dialysis catheter in place although he is not receiving peritoneal dialysis since he was transitioned over to hemodialysis. PAST MEDICAL HISTORY: History of brain aneurysm, history of heart attack, end- stage renal disease, cirrhosis of the liver, history of CVA, and thyroid disease. PAST SURGICAL HISTORY: Recent left [id number] amputation on 03/29/2019. Dialysis catheter placement. Parathyroidectomy. History of brain aneurysm surgery. ALLERGIES: Ambien with unknown reaction. HOME MEDICATIONS: 1. Xanax 1.5 mg every night. 2. Liquifilm liquid packet amino acids 30 mL daily. 3. Calcitriol Wednesday and Wednesday. 4. Calcium carbonate 3 times a day before meals. 5. Sensipar 30 mg daily. 6. Proscar 5 mg daily. 7. Folic Acid. 8. Vitamin B complex and C 800 mg daily. 9. [place] 5/325 mg twice a day. 10. Protonix 40 mg twice a day. 11. [place] 400 mg daily. 12. MiraLAX 17 g daily as needed. 13. Sufotidine topical cream daily. SOCIAL HISTORY: He is . No reported tobacco or alcohol use. FAMILY HISTORY: Kidney disease. REVIEW OF SYSTEMS: Per history of present illness. PHYSICAL EXAMINATION: Vital Signs: Temperature 98.4 degrees, pulse 104, and blood pressure 92/57. General: The patient is awake and alert. Currently, in no acute distress. He is about to go for dialysis. Respiratory: Lung sounds essentially clear. Cardiovascular: Regular rate. Abdomen: Soft, but distended with some ascites. Bowel sounds present. He does have a peritoneal dialysis catheter in place that is not being used. Extremities: Recent left [id number] amputation. He has a brace in place. Neurological: Cranial nerves 2-12 grossly intact. Patient is awake and alert to person and place. LABORATORY: Hematology: WBC 7.88, hemoglobin 8.8, hematocrit 27.6, MCV 97.2, and platelets 93,000. Chemistries: Sodium 139, potassium 3.9, chloride 98, CO2 24, BUN 33, creatinine 4.1, glucose 130, calcium 7.9, alkaline phosphatase 127, total bilirubin 0.83, AST 25, and ALT 10. Recent abdominal ultrasound done showed fatty infiltration of the liver. A small amount of fluid about the liver. No gallstones. Right kidney atrophic and moderate fluid about the spleen and left lower quadrant. The spleen measures 15.9 cm. Impression: Moderate ascites, atrophic right kidney, and splenomegaly. ASSESSMENT AND PLAN: 1. Chronic kidney disease/end-stage renal disease on hemodialysis. The patient will receive dialysis today. 2. Anemia. We will continue to monitor hemoglobin and hematocrit. There are no signs of active GI bleeding. 3. Malnutrition. Patient is not eating. He currently denies dysphagia or soreness in his throat to keep him from eating. He states he does not have an appetite. He refused NG tube feeding. PLAN: Patient is not eating. He has refused NG-tube feeding. Abdominal ultrasound showed moderate ascites which would make PEG tube placement contraindicated because of the ascites. Would continue to encourage p.o. intake. I have discussed this case with Dr. Guardado. Further plans will be made as needed. We will hold off proceeding with PEG tube for now. Will continue to follow during the patient's hospital course. Thank you for this consultation. Dictated by GORDON Wong for Doug Guardado MD cc: GORDON Jacobs MD Amit V. Vora, MD MTDD
--- NOTE | 2019-04-06 11:56 | PROGRESS NOTE ---
DATE: 04/06/2019 Mr. Fung is not doing good. He has more ascites. He has more respiratory distress. He is almost stuporous now. Family understands that we could not put the PEG tube on account of the poor condition and ascites. Will continue the current management. -8 cc: Randall Appiah MD
[2019-04-06] MEDS: ATROPINE 1 % OPHTH SOLN SL PRN (14:52)
--- NOTE | 2019-04-06 15:09 | PROVIDER PROGRESS NOTE ---
Progress Note Subjective: Pt lying in bed in no distress. Able to open his eyes and mumble words. Objective: Temp 97.9, pulse 88, respirations 21, blood pressure 86/49, 02 sat 95% on room air. General: chronic Ill appearing elderly white male laying in bed in no acute distress. HEENT: Normocephalic, atraumatic. Pupils equal and reactive. Mucous membranes dry. Trachea is midline. Skin, thin, friable, hot to touch. Multiple bruises and different healing stages. Right tunnel cath in place. neck: supple, no JVD. cardiovascular: S1, S2, S4 with a gallop. No murmur. Respiratory: coarse rhonchi and crackles bilaterally. abdomen: soft, obese, nontender, slightly distended . Bowel sounds present. PD catheter in place. : non-inspected extremities: left below knee amputation noted. [place] intact. Erythema noted to miriam today. neurological: drowsy, oriented to person and place. Labs: intake zero, output 899. Impression: Chronic kidney disease stage 5D. He was unable to stay his full treatment yesterday due to complaints of pain. Blood pressure. Low, but stable. Anemia. Chronically low. Does not meet transfusion criteria on last lab. Acid base balance and electrolytes. On last lab Stable. Fluid volume. Euvolemic. Nutrition. Inadequate, Peg tube placement put off due to ascites. Medication review. No change. He seems to have aspirated. Clinically worse with apparent aspiration. Given his overall status, I do not think he will respond well to more aggressive treatment at this point. I discussed this with his family and we will withdraw to comfort care only.
--- NOTE | 2019-04-06 18:48 | GENERAL SURGERY PROGRESS NOTE ---
DATE: 04/06/2019 SUBJECTIVE: It appears that he is receiving comfort care now. His family is at the bedside. His stump does look satisfactory. But, I think the goal is simply to keep him comfortable. cc: MD Randall Lyn MD
[2019-04-07] MEDS: ATROPINE 1 % OPHTH SOLN SL PRN (02:05)
[2019-04-07] MEDS: MORPHINE IV PRN (02:45)
[2019-04-07] MEDS: ATIVAN IV PRN ×2 (04:29→19:20)
[2019-04-07] MEDS: DUONEB (A & A) INH SCH ×4 (05:33→21:09)
--- NOTE | 2019-04-07 19:05 | PROGRESS NOTE ---
DATE: 04/07/2019 SUBJECTIVE: Mr. Fung iappears terminal. He has severe respiratory distress, which could be partly because of aspiration. He is only comfort care now. OBJECTIVE: The vital signs reveal temperature normal, pulse 73 per minute, respiratory rate 12, blood pressure is 67/36 and gradually dropping. PLAN: We will continue the comfort measures on him. The family understands that. cc: Randall Appiah MD MTDD
[2019-04-08] MEDS: ATIVAN IV PRN ×4 (02:26→23:43)
[2019-04-08] MEDS: ATROPINE 1 % OPHTH SOLN SL PRN ×3 (02:34→21:55)
[2019-04-08] MEDS: DUONEB (A & A) INH SCH (03:21)
[2019-04-08] MEDS: MORPHINE IV SCH ×4 (09:45→21:51)
--- NOTE | 2019-04-08 17:21 | PROGRESS NOTE ---
DATE: 04/08/2019 SUBJECTIVE: Mr. Fung is not doing well. The patient is poorly responsive. No nausea or vomiting. No high-grade fever or chills. OBJECTIVE: Vital Signs: Noted. Neck: Supple. No JVD. Respiratory: Decreased air entry both the bases. Cardiovascular: S1 and S2 heard. Abdomen: Soft, globular. Bowel sounds hypoactive. The patient does have ascites, bilateral leg swelling. Central nervous system: Patient is sleeping but arousable. CONSIDERATION: Patient has end-stage renal disease on hemodialysis, which was discontinued, peripheral arterial disease, status post amputation of his left below-knee amputation, hypotension. Family requested Do Not Resuscitate and comfort care and will continue. Family is at the bedside, and they are in agreement. cc: MD Randall Carey MD
[2019-04-09] MEDS: MORPHINE IV SCH ×5 (01:28→17:18)
[2019-04-09] MEDS: ATIVAN IV PRN ×4 (03:15→15:00)
[2019-04-09] MEDS: ATROPINE 1 % OPHTH SOLN SL PRN ×2 (03:15→17:20)
[2019-04-09 04:46] VITALS: BP 68/47
--- NOTE | 2019-04-09 09:35 | PROGRESS NOTE ---
DATE: 04/09/2019 SUBJECTIVE: Mr. Fung is not doing well. His respiration is shallow, at times tachycardia. Patient is not responsive. He is responsive to painful stimuli. The patient is terminally ill, on comfort care. OBJECTIVE: Vital signs: Blood pressure is low at 68/47, temperature 99.7 degrees, heart rate was 127. Lungs: Decreased air entry in both the lung bases. Cardiovascular: S1 and S2. Tachycardia. Patient does have ascites. Extremities: Left below-knee amputation. LEGAL ASSISTANT: Responsive to painful stimuli. The patient's family is present. PLAN: Plan is to continue comfort care. Overall plan and prognosis discussed, and they are in agreement. cc: MD Randall Carey MD
--- NOTE | 2019-04-11 09:09 | DISCHARGE SUMMARY ---
ADMISSION DATE: 03/28/2019 DISCHARGE DATE: 04/09/2019 CONDITION: Patient on 04/09/2019. HISTORY: Mr. Fung, who was an 83-year-old white gentleman was admitted with recurrent cellulitis, and severe pain in the left foot. He has a known case of chronic renal failure, and had gangrenous toe with severe ischemic left leg. Dr. Michael had seen him before and, he was advised to consult on him. He had advised a left below knee amputation. Family and the patient agreed, and was operated After the amputation, we continued the dialysis. He did good for a day, and then he started going down. Hemodynamically, he was very unstable, and very hypotensive. He had severe renal failure and hepatic failure too. He was severely anemic. General condition continued to get worse. It appeared like he aspirated. We finally decided for comfort care only, and the medications and antibiotics were discontinued. Before the decision, we even had tried about NG tube feeding. The patient refused. An order was put in for a PEG tube placement. However, it was very difficult to put one in on account of his poor condition and his severe ascites. The decision was postponed. He gradually succumbed. FINAL DIAGNOSES: 1. Acute on chronic renal failure. 2. Peripheral circulatory failure,. 3. Possible aspiration pneumonia. DISPOSITION: The patient was transferred to the home. cc: Randall Appiah MD MTDD
== END 2019-04-09 14:21 | disposition expired | DRG 239 ==
LOC: DIRADM 13:55 → 1N 16:45
PROVIDERS: ADMIT Internal Medicine; ATTEND Internal Medicine